=== PATIENT | female | born 1950 | race Caucasian/White ===

== ENCOUNTER 2019-11-02 12:18 | Day surgery (SDC) | payer MEDICARE ==
[~2019-11-02 12:18] MED LIST: ACET-2615 PO; APIX5TAB3 PO; ASCO-134 PO; ASPI-1265 PO; BENZ-49 PO; CARV-50 PO; CETI10TA15 PO; CYAN-51 PO; DIPH-423 PO; FOLI0.4T2 PO; FURO-149 PO; GLIM2TAB6 PO; LEVO25TA50 PO; MULT-785 PO; NITR0.4T SL; PANT-47 PO; POTA10CA44 PO; SIMV-42 PO; TRAM50TA2 PO; UBID1CAP54 PO
[2019-11-02] MEDS ORDERED: LIDOcaine 2% 5ml jelly ONE (13:12)
[2019-11-02] MEDS ORDERED: nystatin/triamcinolone cream 15gm TP ONE (13:51)
== END 2019-11-02 14:02 | disposition home or self-care (01) ==
LOC: WOUND CARE 12:18
PROVIDERS: ATTEND Nurse Practitioner
DX: T81.89XA Other complications of procedures, not elsewhere classified, initial encounter (principal); T88.9XXD Complication of surgical and medical care, unspecified, subsequent encounter; E11.22 Type 2 diabetes mellitus with diabetic chronic kidney disease; I12.9 Hypertensive chronic kidney disease with stage 1 through stage 4 chronic kidney disease, or unspecified chronic kidney disease; N18.9 Chronic kidney disease, unspecified; I50.9 Heart failure, unspecified; E66.01 Morbid (severe) obesity due to excess calories; L40.8 Other psoriasis; Z79.899 Other long term (current) drug therapy; Z90.710 Acquired absence of both cervix and uterus; Z68.36 Body mass index [BMI] 36.0-36.9, adult; Y83.8 Other surgical procedures as the cause of abnormal reaction of the patient, or of later complication, without mention of misadventure at the time of the procedure; Y92.238 Other place in hospital as the place of occurrence of the external cause
CPT/HCPCS: 97597; J7999

== ENCOUNTER → 2019-11-09 | Day surgery (SDC) | payer MEDICARE ==
[~2019-11-09] MED LIST changes: +LIDOcaine 2% 5ml jelly ONE
== END | disposition home or self-care (01) ==
LOC: WOUND CARE 12:47
PROVIDERS: ATTEND Nurse Practitioner
DX: T81.89XD Other complications of procedures, not elsewhere classified, subsequent encounter (principal); E11.22 Type 2 diabetes mellitus with diabetic chronic kidney disease; I12.9 Hypertensive chronic kidney disease with stage 1 through stage 4 chronic kidney disease, or unspecified chronic kidney disease; N18.9 Chronic kidney disease, unspecified; J44.9 Chronic obstructive pulmonary disease, unspecified; M19.90 Unspecified osteoarthritis, unspecified site; E78.5 Hyperlipidemia, unspecified; E07.9 Disorder of thyroid, unspecified; I50.9 Heart failure, unspecified; E66.01 Morbid (severe) obesity due to excess calories; L40.8 Other psoriasis; Z79.899 Other long term (current) drug therapy; Z90.710 Acquired absence of both cervix and uterus; Z68.36 Body mass index [BMI] 36.0-36.9, adult; Y83.8 Other surgical procedures as the cause of abnormal reaction of the patient, or of later complication, without mention of misadventure at the time of the procedure
CPT/HCPCS: 36416; 82948; 97597

== ENCOUNTER 2019-11-16 13:00 | Day surgery (SDC) | payer MEDICARE ==
[~2019-11-16 13:00] MED LIST changes: -LIDOcaine 2% 5ml jelly ONE
[2019-11-16] MEDS ORDERED: LIDOcaine 2% 5ml jelly ONE (13:51)
[2019-11-16] MEDS ORDERED: nystatin 15 GM powder TP ONE (14:27)
== END 2019-11-16 14:36 | disposition home or self-care (01) ==
LOC: WOUND CARE 13:00
PROVIDERS: ATTEND Nurse Practitioner
DX: T81.89XD Other complications of procedures, not elsewhere classified, subsequent encounter (principal); E11.622 Type 2 diabetes mellitus with other skin ulcer; L98.492 Non-pressure chronic ulcer of skin of other sites with fat layer exposed; E11.22 Type 2 diabetes mellitus with diabetic chronic kidney disease; I13.0 Hypertensive heart and chronic kidney disease with heart failure and stage 1 through stage 4 chronic kidney disease, or unspecified chronic kidney disease; N18.9 Chronic kidney disease, unspecified; I50.9 Heart failure, unspecified; E11.65 Type 2 diabetes mellitus with hyperglycemia; E66.01 Morbid (severe) obesity due to excess calories; L40.8 Other psoriasis; J44.9 Chronic obstructive pulmonary disease, unspecified; E07.9 Disorder of thyroid, unspecified; E78.5 Hyperlipidemia, unspecified; M19.90 Unspecified osteoarthritis, unspecified site; Z79.899 Other long term (current) drug therapy; Z90.710 Acquired absence of both cervix and uterus; Z68.36 Body mass index [BMI] 36.0-36.9, adult; Y83.8 Other surgical procedures as the cause of abnormal reaction of the patient, or of later complication, without mention of misadventure at the time of the procedure
CPT/HCPCS: 36416; 82948; 97597

== ENCOUNTER 2019-11-23 13:46 | Day surgery (SDC) | payer MEDICARE ==
[2019-11-23] MEDS ORDERED: LIDOcaine 2% 5ml jelly ONE (14:49)
== END 2019-11-23 15:36 | disposition home or self-care (01) ==
LOC: WOUND CARE 13:46
PROVIDERS: ATTEND Registered Nurse General Practice
DX: T81.89XD Other complications of procedures, not elsewhere classified, subsequent encounter (principal); E11.622 Type 2 diabetes mellitus with other skin ulcer; L98.492 Non-pressure chronic ulcer of skin of other sites with fat layer exposed; E11.22 Type 2 diabetes mellitus with diabetic chronic kidney disease; I13.0 Hypertensive heart and chronic kidney disease with heart failure and stage 1 through stage 4 chronic kidney disease, or unspecified chronic kidney disease; N18.9 Chronic kidney disease, unspecified; I50.9 Heart failure, unspecified; E11.65 Type 2 diabetes mellitus with hyperglycemia; E66.01 Morbid (severe) obesity due to excess calories; L40.8 Other psoriasis; J44.9 Chronic obstructive pulmonary disease, unspecified; E07.9 Disorder of thyroid, unspecified; E78.5 Hyperlipidemia, unspecified; M19.90 Unspecified osteoarthritis, unspecified site; Z79.899 Other long term (current) drug therapy; Z90.710 Acquired absence of both cervix and uterus; Z68.36 Body mass index [BMI] 36.0-36.9, adult; Z85.828 Personal history of other malignant neoplasm of skin; Z86.711 Personal history of pulmonary embolism; Y83.8 Other surgical procedures as the cause of abnormal reaction of the patient, or of later complication, without mention of misadventure at the time of the procedure
CPT/HCPCS: 97597

== ENCOUNTER 2019-12-01 09:00 | Day surgery (SDC) | payer MEDICARE ==
[2019-12-01] MEDS ORDERED: LIDOcaine 2% 5ml jelly ONE (09:22)
[2019-12-01] MEDS ORDERED: nystatin/triamcinolone cream 15gm TP ONE (09:41)
== END 2019-12-01 09:50 | disposition home or self-care (01) ==
LOC: WOUND CARE 09:00
PROVIDERS: ATTEND Nurse Practitioner
DX: T81.89XD Other complications of procedures, not elsewhere classified, subsequent encounter (principal); E11.622 Type 2 diabetes mellitus with other skin ulcer; L98.492 Non-pressure chronic ulcer of skin of other sites with fat layer exposed; E11.22 Type 2 diabetes mellitus with diabetic chronic kidney disease; I13.0 Hypertensive heart and chronic kidney disease with heart failure and stage 1 through stage 4 chronic kidney disease, or unspecified chronic kidney disease; N18.9 Chronic kidney disease, unspecified; I50.9 Heart failure, unspecified; E11.65 Type 2 diabetes mellitus with hyperglycemia; E66.01 Morbid (severe) obesity due to excess calories; L40.8 Other psoriasis; J44.9 Chronic obstructive pulmonary disease, unspecified; E07.9 Disorder of thyroid, unspecified; E78.5 Hyperlipidemia, unspecified; M19.90 Unspecified osteoarthritis, unspecified site; Z79.899 Other long term (current) drug therapy; Z90.710 Acquired absence of both cervix and uterus; Z68.36 Body mass index [BMI] 36.0-36.9, adult; Z85.828 Personal history of other malignant neoplasm of skin; Z86.711 Personal history of pulmonary embolism; Y83.8 Other surgical procedures as the cause of abnormal reaction of the patient, or of later complication, without mention of misadventure at the time of the procedure
CPT/HCPCS: 82948; 97597; 97598; G0463; J7999

== ENCOUNTER 2019-12-08 10:13 | Outpatient (CLI) | payer MEDICARE ==
[2019-12-08] MEDS ORDERED: LIDOcaine 2% 5ml jelly ONE (10:29)
== END 2019-12-08 10:30 | disposition home or self-care (01) ==
LOC: WOUND CARE 10:13
PROVIDERS: ATTEND Nurse Practitioner
DX: T81.89XD Other complications of procedures, not elsewhere classified, subsequent encounter (principal); E11.622 Type 2 diabetes mellitus with other skin ulcer; L98.492 Non-pressure chronic ulcer of skin of other sites with fat layer exposed; E11.22 Type 2 diabetes mellitus with diabetic chronic kidney disease; I13.0 Hypertensive heart and chronic kidney disease with heart failure and stage 1 through stage 4 chronic kidney disease, or unspecified chronic kidney disease; N18.9 Chronic kidney disease, unspecified; I50.9 Heart failure, unspecified; E11.65 Type 2 diabetes mellitus with hyperglycemia; E66.01 Morbid (severe) obesity due to excess calories; L40.8 Other psoriasis; J44.9 Chronic obstructive pulmonary disease, unspecified; E07.9 Disorder of thyroid, unspecified; E78.5 Hyperlipidemia, unspecified; M19.90 Unspecified osteoarthritis, unspecified site; Z79.899 Other long term (current) drug therapy; Z90.710 Acquired absence of both cervix and uterus; Z68.36 Body mass index [BMI] 36.0-36.9, adult; Z85.828 Personal history of other malignant neoplasm of skin; Z86.711 Personal history of pulmonary embolism; Y83.8 Other surgical procedures as the cause of abnormal reaction of the patient, or of later complication, without mention of misadventure at the time of the procedure
CPT/HCPCS: 36416; 82948; 97597

== ENCOUNTER 2019-12-15 10:07 | Outpatient (CLI) | payer MEDICARE ==
[2019-12-15] MEDS ORDERED: LIDOcaine 2% 5ml jelly ONE (10:22)
[2019-12-15] MEDS ORDERED: hydrocortisone 1% cream 28gm TP ONE (10:39)
== END 2019-12-15 23:59 | disposition home or self-care (01) ==
LOC: WOUND CARE 10:07
PROVIDERS: ATTEND Nurse Practitioner
DX: T81.89XD Other complications of procedures, not elsewhere classified, subsequent encounter (principal); E11.622 Type 2 diabetes mellitus with other skin ulcer; L98.492 Non-pressure chronic ulcer of skin of other sites with fat layer exposed; E11.22 Type 2 diabetes mellitus with diabetic chronic kidney disease; I13.0 Hypertensive heart and chronic kidney disease with heart failure and stage 1 through stage 4 chronic kidney disease, or unspecified chronic kidney disease; N18.9 Chronic kidney disease, unspecified; I50.9 Heart failure, unspecified; E11.65 Type 2 diabetes mellitus with hyperglycemia; E66.01 Morbid (severe) obesity due to excess calories; L40.8 Other psoriasis; J44.9 Chronic obstructive pulmonary disease, unspecified; E07.9 Disorder of thyroid, unspecified; E78.5 Hyperlipidemia, unspecified; M19.90 Unspecified osteoarthritis, unspecified site; Z79.899 Other long term (current) drug therapy; Z90.710 Acquired absence of both cervix and uterus; Z68.36 Body mass index [BMI] 36.0-36.9, adult; Z85.828 Personal history of other malignant neoplasm of skin; Z86.711 Personal history of pulmonary embolism; Y83.8 Other surgical procedures as the cause of abnormal reaction of the patient, or of later complication, without mention of misadventure at the time of the procedure
CPT/HCPCS: 36416; 82948; 97597

== ENCOUNTER 2019-12-23 08:00 | Outpatient (CLI) | payer MEDICARE ==
[2019-12-23] MEDS ORDERED: hydrocortisone 1% cream 28gm TP ONE (08:49)
== END 2019-12-23 23:59 | disposition home or self-care (01) ==
LOC: WOUND CARE 08:00
PROVIDERS: ATTEND Nurse Practitioner
DX: T81.89XD Other complications of procedures, not elsewhere classified, subsequent encounter (principal); E11.622 Type 2 diabetes mellitus with other skin ulcer; L98.492 Non-pressure chronic ulcer of skin of other sites with fat layer exposed; E11.22 Type 2 diabetes mellitus with diabetic chronic kidney disease; I13.0 Hypertensive heart and chronic kidney disease with heart failure and stage 1 through stage 4 chronic kidney disease, or unspecified chronic kidney disease; N18.9 Chronic kidney disease, unspecified; I50.9 Heart failure, unspecified; E11.65 Type 2 diabetes mellitus with hyperglycemia; E66.01 Morbid (severe) obesity due to excess calories; L40.8 Other psoriasis; J44.9 Chronic obstructive pulmonary disease, unspecified; E07.9 Disorder of thyroid, unspecified; E78.5 Hyperlipidemia, unspecified; M19.90 Unspecified osteoarthritis, unspecified site; Z79.899 Other long term (current) drug therapy; Z90.710 Acquired absence of both cervix and uterus; Z68.36 Body mass index [BMI] 36.0-36.9, adult; Z85.828 Personal history of other malignant neoplasm of skin; Z86.711 Personal history of pulmonary embolism; Y83.8 Other surgical procedures as the cause of abnormal reaction of the patient, or of later complication, without mention of misadventure at the time of the procedure
CPT/HCPCS: 36416; 82948; 97597

== ENCOUNTER 2021-01-22 08:55 | Inpatient (IN) | payer MEDICARE ==
[~2021-01-22] VITALS: Ht 165.1 cm; Wt 104.5 kg
[~2021-01-22 08:55] MED LIST changes: -FOLI0.4T2 PO; +FOLI0.4T6 PO
[2021-01-22] MEDS ORDERED: acetaminophen 325mg tablet PO STA (09:07)
[2021-01-22] MEDS ORDERED: fentaNYL/PF 50MCG/1 ML 2ML syringe IV ONE (09:10)
[2021-01-22] MEDS ORDERED: normal saline 1000ML IV soln IV ONE (09:10)
[2021-01-22] MEDS ORDERED: piperacillin/tazo 3.375gm/50ml 50 ML IV ONE (09:10)
[2021-01-22] MEDS ORDERED: vancomycin/NS 1 GM ADD-VANTAGE 250 ML IV ONE (09:10)
[2021-01-22] MEDS ORDERED: metoclopramide 5 mg/ml inj IV ONE (09:10)
[2021-01-22 09:36] LABS: BASOPHILS # (AUTO) 0.1 X10'3 (0-0.2); BASOPHILS % (AUTO) 0.6 % (0-1); EOSINOPHILS % (AUTO) 0.2 % (0-6); HEMATOCRIT 33.7 % (35.0-45.0); HEMOGLOBIN 10.6 g/dl (12.0-16.0); LYMPHOCYTES # (AUTO) 0.7 X10'3 (1.1-4.8); LYMPHOCYTES % (AUTO) 5.9 % (21-51); MEAN CORPUSCULAR HEMOGLOBIN 26.5 PG (27.0-31.0); MEAN CORPUSCULAR HGB CONC 31.4 g/dL (33.0-36.5); MEAN CORPUSCULAR VOLUME 84.5 FL (78-98); MEAN PLATELET VOLUME 8.7 FL (7.4-10.4); MONOCYTES # (AUTO) 0.4 X10'3 (0-0.9); MONOCYTES % (AUTO) 3.6 % (2-12); NEUTROPHILS # (AUTO) 10.2 X10'3 (1.8-7.7); NEUTROPHILS % (AUTO) 89.7 % (42-75); PLATELET COUNT 516 X10'3 (140-440); RED BLOOD COUNT 3.98 X10'6 (4.20-5.60); RED CELL DISTRIBUTION WIDTH 18.1 % (11.5-14.5); WHITE BLOOD COUNT 11.4 X10'3 (4.5-11.0)
--- NOTE | 2021-01-22 09:53 | NUR ---
ATTEMPT EKG, PT AT CT. WILL ATTEMPT AGAIN.
[2021-01-22 10:10] LABS: ALANINE AMINOTRANSFERASE 13 U/L (12-78); ALBUMIN 2.2 G/DL (3.4-5.0); ALBUMIN/GLOBULIN RATIO 0.4 (1.1-1.5); ALKALINE PHOSPHATASE 94 IU/L (46-116); ASPARTATE AMINO TRANSFERASE 14 U/L (10-37); BLOOD UREA NITROGEN 22 MG/DL (7-18); BUN/CREATININE RATIO 14.1 (6.6-38.0); CALCIUM 8.3 MG/DL (8.5-10.1); CREATININE 1.56 MG/DL (0.40-0.90); GLUCOSE 232 MG/DL (70-104); TOTAL CARBON DIOXIDE 23.1 MMOL/L (24-32); TOTAL PROTEIN 7.4 G/DL (6.4-8.2); eGFR 33 ML/MIN
[2021-01-22 10:14] LABS: ANION GAP 10 (8-16); CHLORIDE 101 MMOL/L (99-107); POTASSIUM 4.3 MMOL/L (3.5-5.1); SODIUM 134 MMOL/L (135-145)
[2021-01-22 11:07] LABS: C-REACTIVE PROTEIN 12.13 MG/DL (0.0-0.5)
[2021-01-22] MEDS ORDERED: magnesium hydroxide 30ml (MOM) UD suspension PO PRN (12:25)
[2021-01-22] MEDS ORDERED: ondansetron/PF 4mg/2ml inj IV PRN (12:25)
[2021-01-22] MEDS ORDERED: acetaminophen 325mg tablet PO PRN (12:25)
[2021-01-22] MEDS ORDERED: mag hydrox/Alum hydrox/simeth 30ml oral suspension PO PRN (12:25)
[2021-01-22] MEDS ORDERED: normal saline 1000ml 1,000 ML IV SCH (12:25)
[2021-01-22] MEDS ORDERED: LEVO50TA8 PO (14:23)
[2021-01-22] MEDS ORDERED: LACT1CAP65 PO (14:23)
[2021-01-22] MEDS ORDERED: CHOL100025 PO (14:23)
[2021-01-22] MEDS ORDERED: LISI5TAB22 PO (14:23)
[2021-01-22] MEDS ORDERED: IXEK80AU2 SQ (14:23)
[2021-01-22] MEDS ORDERED: SIMV-45 PO (14:23)
[2021-01-22] MEDS ORDERED: ASPI81TA48 PO (14:23)
[2021-01-22 18:40] LABS: HEMOGLOBIN A1C 8.2 % (4.5-6.2)
[2021-01-22] MEDS ORDERED: nitroGLYCERIN 0.4mg SUBLingual tab SL PRN (18:45)
[2021-01-22] MEDS ORDERED: potassium chloride 10mEq ER tablet PO PRN (18:45)
[2021-01-22] MEDS ORDERED: furosemide 40mg tablet PO PRN (18:45)
[2021-01-22] MEDS ORDERED: IXEKIZUMAB 80 MG SQ SCH (18:45)
[2021-01-22] MEDS: docusate sod 100mg capsule PO SCH (20:00)
[2021-01-22] MEDS ORDERED: dextrose ORAL solution 15 GM/59 ML bottle PO PRN ×2 (20:35)
[2021-01-22] MEDS ORDERED: dextrose 50%-water 50ml dispensing syringe IV PRN ×2 (20:35)
[2021-01-22] MEDS ORDERED: glucagon, human recombinant 1mg kit SUBCUT PRN (20:35)
[2021-01-22] MEDS ORDERED: MESSAGE TO PHARMACY PO ONE (20:35)
[2021-01-22] MEDS: insulin glargine (Lantus) pen - multi-dose SQ SCH (21:00)
[2021-01-22 21:30] VITALS: BP 125/56
[2021-01-22] MEDS: atorvastatin 20mg tablet PO SCH (22:05)
[2021-01-22] MEDS: carVEDilol 12.5mg tablet PO SCH (22:11)
[2021-01-22] MEDS: lactobacillus rhamnosus 10,000 MMU CELLS/CAPSULE PO SCH (22:11)
[2021-01-22] MEDS: traMADol 50MG tablet PO PRN (22:18)
[2021-01-22] MEDS: dextrose 5%-water 1,000 ML IV SCH (23:02)
--- NOTE | 2021-01-23 06:30 | NUR ---
Problems reprioritized. Patient report given, questions answered & plan of care reviewed with Josselyn. Addendum: 01/23/21 at 0654 by Scooter Whipple RN Amended: Links added.
[2021-01-23 06:37] LABS: BASOPHILS % (AUTO) 0.3 % (0-1); EOSINOPHILS # (AUTO) 0.3 X10'3 (0-0.9); EOSINOPHILS % (AUTO) 3.9 % (0-6); HEMATOCRIT 25.6 % (35.0-45.0); HEMOGLOBIN 8.3 g/dl (12.0-16.0); LYMPHOCYTES # (AUTO) 0.5 X10'3 (1.1-4.8); LYMPHOCYTES % (AUTO) 6.7 % (21-51); MEAN CORPUSCULAR HEMOGLOBIN 27.5 PG (27.0-31.0); MEAN CORPUSCULAR HGB CONC 32.4 g/dL (33.0-36.5); MEAN CORPUSCULAR VOLUME 84.9 FL (78-98); MEAN PLATELET VOLUME 8.9 FL (7.4-10.4); MONOCYTES # (AUTO) 0.4 X10'3 (0-0.9); MONOCYTES % (AUTO) 5.8 % (2-12); NEUTROPHILS # (AUTO) 6.1 X10'3 (1.8-7.7); NEUTROPHILS % (AUTO) 83.3 % (42-75); PLATELET COUNT 367 X10'3 (140-440); RED BLOOD COUNT 3.01 X10'6 (4.20-5.60); RED CELL DISTRIBUTION WIDTH 18.5 % (11.5-14.5); WHITE BLOOD COUNT 7.3 X10'3 (4.5-11.0)
[2021-01-23 06:41] LABS: ALBUMIN 1.8 G/DL (3.4-5.0); ANION GAP 9 (8-16); BLOOD UREA NITROGEN 23 MG/DL (7-18); BUN/CREATININE RATIO 15.1 (6.6-38.0); CALCIUM 7.7 MG/DL (8.5-10.1); CHLORIDE 105 MMOL/L (99-107); CREATININE 1.52 MG/DL (0.40-0.90); GLUCOSE 143 MG/DL (70-104); POTASSIUM 3.9 MMOL/L (3.5-5.1); SODIUM 137 MMOL/L (135-145); TOTAL CARBON DIOXIDE 22.8 MMOL/L (24-32); eGFR 34 ML/MIN
--- NOTE | 2021-01-23 07:01 | NUR ---
Patient in room [facility] 354. I have received report from YAKOV Rodriguez and had the opportunity to ask questions and assume patient care.
[2021-01-23 07:24] VITALS: BP 120/51
[2021-01-23] MEDS: docusate sod 100mg capsule PO SCH ×2 (08:00→20:00)
[2021-01-23] MEDS: cholecalciferol (vitamin D3) 1,000 unit (25mcg) tablet PO SCH (08:18)
[2021-01-23] MEDS: ascorbic acid 500mg tablet PO SCH (08:18)
[2021-01-23] MEDS: lactobacillus rhamnosus 10,000 MMU CELLS/CAPSULE PO SCH ×2 (08:18→22:12)
[2021-01-23] MEDS: multivitamins, therapeutics tablet PO SCH (08:19)
[2021-01-23] MEDS: cyanocobalamin 500mcg tablet PO SCH (08:19)
[2021-01-23] MEDS: lisinopril 5mg tablet PO SCH (08:20)
[2021-01-23] MEDS: carVEDilol 12.5mg tablet PO SCH ×2 (08:20→17:52)
[2021-01-23] MEDS: folic acid 0.4mg tablet PO SCH (08:20)
[2021-01-23] MEDS: pantoprazole 40mg Tablet.DR PO SCH (08:20)
[2021-01-23] MEDS: levoTHYROXINE 25mcg tablet PO SCH (08:26)
[2021-01-23 11:00] VITALS: BP 134/55
--- NOTE | 2021-01-23 11:30 | NUR ---
Diabetes consult: Noted A1C 8.2 up from 6.3 in April 2019. Pt states she has been managing diabetes most of her life. Provided pt w/ written and verbal DM education w/ RD contact info. Pt receptive of information. Addendum: 01/23/21 at [address] Amended: Links added.
[2021-01-23] MEDS: VANCOmycin 1250MG/NS 250ml Bag 250 ML IV SCH (11:56)
[2021-01-23] MEDS: dextrose 5%-water 1,000 ML IV SCH (13:13)
[2021-01-23 18:00] VITALS: BP 133/48
--- NOTE | 2021-01-23 18:32 | NUR ---
Problems reprioritized. Patient report given, questions answered & plan of care reviewed with JEANINE Champagne.
[2021-01-23] MEDS: traMADol 50MG tablet PO PRN (19:59)
[2021-01-23] MEDS: insulin glargine (Lantus) pen - multi-dose SQ SCH (21:00)
[2021-01-23] MEDS: atorvastatin 20mg tablet PO SCH (22:12)
[2021-01-24] VITALS (21 sets, daily range): BP systolic 121–155; BP diastolic 45–73
[2021-01-24] MEDS: dextrose 5%-water 1,000 ML IV SCH (03:31)
[2021-01-24 06:07] LABS: BASOPHILS % (AUTO) 0.4 % (0-1); EOSINOPHILS # (AUTO) 0.2 X10'3 (0-0.9); EOSINOPHILS % (AUTO) 3.4 % (0-6); HEMATOCRIT 25.6 % (35.0-45.0); HEMOGLOBIN 8.2 g/dl (12.0-16.0); LYMPHOCYTES # (AUTO) 0.5 X10'3 (1.1-4.8); MEAN CORPUSCULAR HEMOGLOBIN 26.9 PG (27.0-31.0); MEAN CORPUSCULAR VOLUME 84.1 FL (78-98); MEAN PLATELET VOLUME 8.6 FL (7.4-10.4); MONOCYTES # (AUTO) 0.4 X10'3 (0-0.9); MONOCYTES % (AUTO) 7.7 % (2-12); NEUTROPHILS # (AUTO) 4.5 X10'3 (1.8-7.7); NEUTROPHILS % (AUTO) 79.5 % (42-75); PLATELET COUNT 399 X10'3 (140-440); RED BLOOD COUNT 3.04 X10'6 (4.20-5.60); RED CELL DISTRIBUTION WIDTH 18.3 % (11.5-14.5); WHITE BLOOD COUNT 5.6 X10'3 (4.5-11.0)
--- NOTE | 2021-01-24 06:11 | NUR ---
Patient in room [facility] 354. I have received report from Mahi NAGY and had the opportunity to ask questions and assume patient care.
[2021-01-24 06:21] LABS: ALBUMIN 1.9 G/DL (3.4-5.0); ANION GAP 9 (8-16); BLOOD UREA NITROGEN 21 MG/DL (7-18); BUN/CREATININE RATIO 15.4 (6.6-38.0); CALCIUM 8.6 MG/DL (8.5-10.1); CHLORIDE 107 MMOL/L (99-107); CREATININE 1.36 MG/DL (0.40-0.90); GLUCOSE 160 MG/DL (70-104); POTASSIUM 4.6 MMOL/L (3.5-5.1); SODIUM 140 MMOL/L (135-145); TOTAL CARBON DIOXIDE 23.9 MMOL/L (24-32); eGFR 39 ML/MIN
--- NOTE | 2021-01-24 07:37 | NUR ---
per OR charge nurse hold all meds for surgery, they will come slate picker pt within the hr.
[2021-01-24] MEDS: lactobacillus rhamnosus 10,000 MMU CELLS/CAPSULE PO SCH ×2 (07:41→21:28)
[2021-01-24] MEDS: docusate sod 100mg capsule PO SCH ×2 (07:41→20:00)
[2021-01-24] MEDS: folic acid 0.4mg tablet PO SCH (07:42)
[2021-01-24] MEDS: cholecalciferol (vitamin D3) 1,000 unit (25mcg) tablet PO SCH (07:42)
[2021-01-24] MEDS: ascorbic acid 500mg tablet PO SCH (07:42)
[2021-01-24] MEDS: multivitamins, therapeutics tablet PO SCH (07:42)
[2021-01-24] MEDS: pantoprazole 40mg Tablet.DR PO SCH (07:42)
[2021-01-24] MEDS: lisinopril 5mg tablet PO SCH (07:42)
[2021-01-24] MEDS: cyanocobalamin 500mcg tablet PO SCH (07:42)
[2021-01-24] MEDS: carVEDilol 12.5mg tablet PO SCH ×2 (07:47→17:02)
[2021-01-24] MEDS: levoTHYROXINE 25mcg tablet PO SCH (07:48)
[2021-01-24] MEDS ORDERED: ondansetron/PF 4mg/2ml inj IV PRN (07:50)
[2021-01-24] MEDS ORDERED: meperidine/PF 25mg/ml syringe IV PRN ×2 (07:50)
[2021-01-24] MEDS ORDERED: ringers solution, lacted 1,000 ML IV SCH (07:50)
[2021-01-24] MEDS ORDERED: proCHLORperazine 10 MG/2 ml inj IV PRN (07:50)
[2021-01-24] MEDS: VANCOmycin 1250MG/NS 250ml Bag 250 ML IV SCH (08:25)
[2021-01-24] MEDS ORDERED: neostigmine methylsulfate 1 MG/ML 10ml vial ONE (09:28)
[2021-01-24] MEDS ORDERED: sevoflurane 250ml liquid IH ONE (09:28)
[2021-01-24] MEDS ORDERED: glycopyrrolate 0.2mg/ml inj ONE (09:28)
[2021-01-24] MEDS ORDERED: LIDOcaine 2% (20mg/ml) 5ml vial ONE (09:28)
[2021-01-24] MEDS ORDERED: dexamethasone sod phosphate 10mg/ml inj ONE (09:28)
[2021-01-24] MEDS ORDERED: fentaNYL/PF 50MCG/1 ML 2ML syringe ONE (09:32)
[2021-01-24] MEDS ORDERED: midazolam 1 mg/ML 2ml injection ONE (09:33)
[2021-01-24] MEDS ORDERED: propofol inj 20 ML IV ONE (09:34)
[2021-01-24] MEDS ORDERED: rocuronium 10mg/ml inj IV ONE (10:07)
[2021-01-24] MEDS ORDERED: ondansetron/PF 4mg/2ml inj ONE (10:07)
[2021-01-24 10:13] LABS: PARTIAL THROMBOPLASTIN TIME 26 SECONDS (22-32)
--- NOTE | 2021-01-24 10:23 | NUR ---
Received from OR via bed, accompanied by Anesthesiologist Dr. Cox and report given by Anesthesiolgist and OR nurse. PT ARRIVED DROWSY ON 10 L OF 02 VIA MASK. PT HAS 20 G IV TO R AC RUNNING LR AND TYLENOL. VSS. PT STATES 8/10 PAIN IN ABD. WILL TREAT PER EMAR. DENIES NAUSEA. BELL. WOUND VAC ON ABD WITH SOME BLOODY DRAINAGE. ABD IS SOFT, NON DISTENDED BUT BRUISED FROM PREVIOUS INJURY. WILL CONTINUE TO MONITOR. Addendum: 01/24/21 at 1054 by Kirsten Doan RN Amended: Links added.
[2021-01-24] MEDS: meperidine/PF 25mg/ml syringe IV PRN ×2 (10:35→10:59)
--- NOTE | 2021-01-24 11:22 | NUR ---
Patient in room [facility] 354. I have received report from Kirsten granado and had the opportunity to ask questions and assume patient care.
--- NOTE | 2021-01-24 11:33 | NUR ---
Report called to receiving nurse MICHELLE. Transferred via BED WITH NECKLACE, [facility]. Special Issues communicated to receiving nurse. PT VSS. NEURO STATUS BACK TO BASELINE. PT PAIN IS CONTROLLED AND DENIES NAUSEA. WOUND VAC RUNNING AT 125. TYLENOL D/C'D AND LR RUNNING AT 100ML/HR. PT ON 2 L 02 VIA NASAL CANNULA. NURSE NOTIFIED OF PT ARRIVAL. BED LOCKED IN LOW POSITION WITH 2 RAILS UP. CALL LIGHT IN REACH. Addendum: 01/24/21 at 1155 by Kirsten Doan RN Amended: Links added.
--- NOTE | 2021-01-24 12:13 | NUR ---
attempted to give pt MOM since LBM was 01/21. Pt asked to try prune juice first before MOM
[2021-01-24] MEDS: traMADol 50MG tablet PO PRN ×2 (15:02→21:29)
--- NOTE | 2021-01-24 16:00 | NUR ---
Page Sent PAGER ID: [phone] MESSAGE: 354 C, Asher, the pt is now eating and drinking do you want me to DC the fluids? also since pt was on D5 her BS were higher but not met yet, if high at dinner can we not replace and what to see what she is tomorrow? [id number] chucho
--- NOTE | 2021-01-24 16:45 | NUR ---
Page Sent PAGER ID: [phone] MESSAGE: 354 C Asher, can I order some nystatin powder pt has red area in groin and moist. Also let me know bout the pts fluids please. [id number] chucho
[2021-01-24] MEDS ORDERED: nystatin 15 GM powder TP SCH (17:00)
--- NOTE | 2021-01-24 17:35 | NUR ---
Page Sent PAGER ID: [phone] MESSAGE: Richie c Asher, do you want me to restart pts accu checks. she just now met with a BS of 254, but she ate a late lunch and was on D5W all day. Please call me to let me know if we can just replace insulin tomorrow? if met [phone] chucho
--- NOTE | 2021-01-24 18:11 | NUR ---
per dr hughes, do not give lantus but cover with humalog, pt is a level 2. i discussed this with night nurse kehinde.
--- NOTE | 2021-01-24 18:18 | NUR ---
Problems reprioritized. Patient report given, questions answered & plan of care reviewed with Mahi granado.
[2021-01-24] MEDS: insulin Lispro (HumaLOG) vial - multi-dose SQ SCH ×2 (18:37→21:45)
[2021-01-24] MEDS: insulin glargine (Lantus) pen - multi-dose SQ SCH (21:00)
[2021-01-24] MEDS: atorvastatin 20mg tablet PO SCH (21:28)
[2021-01-25] VITALS: BP 129/55
[2021-01-25] MEDS: traMADol 50MG tablet PO PRN ×3 (06:07→14:02)
[2021-01-25 07:07] LABS: ANION GAP 7 (8-16); BLOOD UREA NITROGEN 25 MG/DL (7-18); CALCIUM 8.7 MG/DL (8.5-10.1); CHLORIDE 105 MMOL/L (99-107); CREATININE 1.39 MG/DL (0.40-0.90); GLUCOSE 198 MG/DL (70-104); SODIUM 137 MMOL/L (135-145); TOTAL CARBON DIOXIDE 24.7 MMOL/L (24-32); eGFR 38 ML/MIN
[2021-01-25 07:26] LABS: BASOPHILS % (AUTO) 0.1 % (0-1); EOSINOPHILS % (AUTO) 0 % (0-6); HEMATOCRIT 26.8 % (35.0-45.0); HEMOGLOBIN 8.7 g/dl (12.0-16.0); LYMPHOCYTES # (AUTO) 0.4 X10'3 (1.1-4.8); MEAN CORPUSCULAR HEMOGLOBIN 27.3 PG (27.0-31.0); MEAN CORPUSCULAR HGB CONC 32.6 g/dL (33.0-36.5); MEAN CORPUSCULAR VOLUME 83.5 FL (78-98); MEAN PLATELET VOLUME 8.9 FL (7.4-10.4); MONOCYTES # (AUTO) 0.4 X10'3 (0-0.9); MONOCYTES % (AUTO) 5.7 % (2-12); NEUTROPHILS # (AUTO) 6.3 X10'3 (1.8-7.7); NEUTROPHILS % (AUTO) 88.2 % (42-75); PLATELET COUNT 435 X10'3 (140-440); RED CELL DISTRIBUTION WIDTH 18.1 % (11.5-14.5); WHITE BLOOD COUNT 7.2 X10'3 (4.5-11.0)
[2021-01-25 07:40] VITALS: BP 173/80
[2021-01-25] MEDS: docusate sod 100mg capsule PO SCH ×2 (08:00→20:16)
[2021-01-25] MEDS: lactobacillus rhamnosus 10,000 MMU CELLS/CAPSULE PO SCH ×2 (08:11→20:16)
[2021-01-25] MEDS: carVEDilol 12.5mg tablet PO SCH ×2 (08:11→18:14)
[2021-01-25] MEDS: cyanocobalamin 500mcg tablet PO SCH (08:11)
[2021-01-25] MEDS: cholecalciferol (vitamin D3) 1,000 unit (25mcg) tablet PO SCH (08:11)
[2021-01-25] MEDS: ascorbic acid 500mg tablet PO SCH (08:11)
[2021-01-25] MEDS: levoTHYROXINE 25mcg tablet PO SCH (08:11)
[2021-01-25] MEDS: lisinopril 5mg tablet PO SCH (08:12)
[2021-01-25] MEDS: folic acid 0.4mg tablet PO SCH (08:13)
[2021-01-25] MEDS: multivitamins, therapeutics tablet PO SCH (08:13)
[2021-01-25] MEDS ORDERED: VANCOMYCIN LEVEL IV ONE (08:30)
[2021-01-25] MEDS: VANCOmycin 1250MG/NS 250ml Bag 250 ML IV SCH (09:00)
[2021-01-25] MEDS: insulin Lispro (HumaLOG) vial - multi-dose SQ SCH ×2 (10:20→13:55)
[2021-01-25] MEDS: pantoprazole 40mg Tablet.DR PO SCH (10:23)
--- NOTE | 2021-01-25 10:37 | NUR ---
Pharmacy notified regarding critical vanco trough. Requested to non-admin AM dose, new dose will be sent up.
[2021-01-25 11:00] VITALS: BP 130/58
[2021-01-25] MEDS: vancomycin/NS 1 GM ADD-VANTAGE 250 ML IV SCH (12:00)
--- NOTE | 2021-01-25 14:26 | NUR ---
Initial; Pt admitted w/ cellulitis with possible infected hematoma of the anterior abdominal wall per EMR. Pt underwent I&D of abd wall hematoma 01/24. Pt currently on CCHO diet w/ 100% intake of last 3 documented meals meeting needs if current trends continue. LBM 01/22 receiving routine colace. No nutrition intervention implemented at this time, will continue to monitor. Recs: 1. Continue CCHO diet as tolerated 2. Bowel care per rx 3. Scaled wt this admit, subsequent weekly wts Addendum: 01/25/21 at [address] Amended: Links added.
--- NOTE | 2021-01-25 15:11 | NUR ---
LUCA consutl: Addressed in previous RD assessment. Addendum: 01/25/21 at [address] Amended: Links added.
--- NOTE | 2021-01-25 15:35 | NUR ---
WOUND VAC EDUCATION PROVIDED BY WOUND CARE 1. Patient instructed to call the Wound Center or their Home Health Agency immediately if: * They notice a change in the color or amount of the fluid in the canister. * Their wound looks more red than usual or has a foul smell. * The skin around their wound looks reddened or irritated. * The dressing feels loose or appears to be loose. * They experience any increase or changes in their pain. * The alarm will not turn off. 2. Patient instructed that they should not be disconnected from suction for more than 2 hours at a time. * If they are not able to get the suction back on, they need to remove the dressing and take all of the foam out of the wound. * Then moisten sterile gauze with normal saline and place on/in the wound. * Change the dressing once a day until arrangements have been made to replace the wound vac dressing. 3. Patient instructed to turn the wound vac machine OFF and call 911 or go to the ED immediately if their canister fills rapidly with blood. 4. If any of these occur while in the hospital tell a nurse immediately. Addendum: 01/25/21 at 1535 by Channing Ponce RN Amended: Links added.
--- NOTE | 2021-01-25 18:33 | NUR ---
Patient a&ox3. VSS. Pain relieved with tramadol. Room air. Repositioned q2h, skin is intact. Purewick in place, working well. Wound vac dressing dry and intact. Plan of care reviewed with patient. Safety measures maintained: bed in low position, call light placed within reach. Report given to Miriam NAGY.
[2021-01-25 20:00] VITALS: BP 131/57
[2021-01-25] MEDS: atorvastatin 20mg tablet PO SCH (20:16)
[2021-01-25] MEDS: HYDROmorphone/PF 0.2 MG/ML SYRINGE IV PRN (20:24)
[2021-01-25] MEDS: insulin glargine (Lantus) pen - multi-dose SQ SCH (21:00)
[2021-01-26] VITALS: BP 129/55
[2021-01-26] MEDS: HYDROmorphone/PF 0.2 MG/ML SYRINGE IV PRN ×2 (03:43→09:16)
--- NOTE | 2021-01-26 06:03 | NUR ---
Patient report given, questions answered and plan of care reviewed with Yari NAGY .
[2021-01-26 06:18] LABS: BASOPHILS # (AUTO) 0.1 X10'3 (0-0.2); BASOPHILS % (AUTO) 0.9 % (0-1); EOSINOPHILS # (AUTO) 0.2 X10'3 (0-0.9); EOSINOPHILS % (AUTO) 3.1 % (0-6); HEMOGLOBIN 8.8 g/dl (12.0-16.0); LYMPHOCYTES % (AUTO) 13.6 % (21-51); MEAN CORPUSCULAR HEMOGLOBIN 27.2 PG (27.0-31.0); MEAN CORPUSCULAR HGB CONC 32.6 g/dL (33.0-36.5); MEAN CORPUSCULAR VOLUME 83.6 FL (78-98); MEAN PLATELET VOLUME 8.3 FL (7.4-10.4); MONOCYTES # (AUTO) 0.6 X10'3 (0-0.9); MONOCYTES % (AUTO) 8.3 % (2-12); NEUTROPHILS # (AUTO) 5.6 X10'3 (1.8-7.7); NEUTROPHILS % (AUTO) 74.1 % (42-75); PLATELET COUNT 410 X10'3 (140-440); RED BLOOD COUNT 3.23 X10'6 (4.20-5.60); RED CELL DISTRIBUTION WIDTH 18.3 % (11.5-14.5); WHITE BLOOD COUNT 7.5 X10'3 (4.5-11.0)
[2021-01-26 06:21] LABS: ALBUMIN 2.1 G/DL (3.4-5.0); ANION GAP 5 (8-16); BLOOD UREA NITROGEN 32 MG/DL (7-18); BUN/CREATININE RATIO 19.4 (6.6-38.0); CALCIUM 8.9 MG/DL (8.5-10.1); CHLORIDE 106 MMOL/L (99-107); CREATININE 1.65 MG/DL (0.40-0.90); GLUCOSE 129 MG/DL (70-104); POTASSIUM 5.1 MMOL/L (3.5-5.1); SODIUM 138 MMOL/L (135-145); TOTAL CARBON DIOXIDE 27.1 MMOL/L (24-32); eGFR 31 ML/MIN
[2021-01-26] MEDS: ascorbic acid 500mg tablet PO SCH (07:22)
[2021-01-26] MEDS: levoTHYROXINE 25mcg tablet PO SCH (07:22)
[2021-01-26] MEDS: cholecalciferol (vitamin D3) 1,000 unit (25mcg) tablet PO SCH (07:22)
[2021-01-26] MEDS: cyanocobalamin 500mcg tablet PO SCH (07:23)
[2021-01-26] MEDS: multivitamins, therapeutics tablet PO SCH (07:23)
[2021-01-26] MEDS: folic acid 0.4mg tablet PO SCH (07:23)
[2021-01-26] MEDS: lactobacillus rhamnosus 10,000 MMU CELLS/CAPSULE PO SCH (07:23)
[2021-01-26] MEDS: carVEDilol 12.5mg tablet PO SCH (07:24)
[2021-01-26] MEDS: lisinopril 5mg tablet PO SCH (07:24)
[2021-01-26] MEDS: pantoprazole 40mg Tablet.DR PO SCH (07:24)
[2021-01-26] MEDS: docusate sod 100mg capsule PO SCH (07:28)
[2021-01-26 07:35] VITALS: BP 128/54
[2021-01-26] MEDS: insulin Lispro (HumaLOG) vial - multi-dose SQ SCH (09:54)
[2021-01-26 11:00] VITALS: BP 124/46
[2021-01-26] MEDS ORDERED: CLIN-97 PO (11:46)
[2021-01-26] MEDS: vancomycin/NS 1 GM ADD-VANTAGE 250 ML IV SCH (12:29)
--- NOTE | 2021-01-26 13:20 | NUR ---
Patient a&ox4. VSS. Discharge papers given to patient. Home wound vac placed, wound vac education given. IV removed, catheter intact. Cleared from PT. waiting for patient downstairs. Patient free from injury. Staff NA taking patient down to main lobby.
--- NOTE | 2021-01-26 13:43 | NUR ---
WOUND VAC EDUCATION PROVIDED BY WOUND CARE 1. Patient instructed to call the Wound Center or their Home Health Agency immediately if: * They notice a change in the color or amount of the fluid in the canister. * Their wound looks more red than usual or has a foul smell. * The skin around their wound looks reddened or irritated. * The dressing feels loose or appears to be loose. * They experience any increase or changes in their pain. * The alarm will not turn off. 2. Patient instructed that they should not be disconnected from suction for more than 2 hours at a time. * If they are not able to get the suction back on, they need to remove the dressing and take all of the foam out of the wound. * Then moisten sterile gauze with normal saline and place on/in the wound. * Change the dressing once a day until arrangements have been made to replace the wound vac dressing. 3. Patient instructed to turn the wound vac machine OFF and call 911 or go to the ED immediately if their canister fills rapidly with blood. 4. If any of these occur while in the hospital tell a nurse immediately. Addendum: 01/26/21 at 1343 by Channing Ponce RN Amended: Links added.
[2021-01-28] MEDS ORDERED: VANCOMYCIN LEVEL IV ONE (10:30)
== END 2021-01-26 13:30 | disposition home health service (06) | DRG 571 ==
LOC: ER 08:55 → ED HOLD 12:26 → SUR 3N 21:10
PROVIDERS: ADMIT Family Medicine; ATTEND Family Medicine
PROC: 0W9F0ZZ Drainage of Abdominal Wall, Open Approach (ICD-10-PCS; principal; 2021-01-25)
PROC: 0JB80ZZ Excision of Abdomen Subcutaneous Tissue and Fascia, Open Approach (ICD-10-PCS; 2021-01-25)
DX: S30.1XXA Contusion of abdominal wall, initial encounter (principal); L03.311 Cellulitis of abdominal wall; I48.91 Unspecified atrial fibrillation; I10 Essential (primary) hypertension; E03.9 Hypothyroidism, unspecified; E11.9 Type 2 diabetes mellitus without complications; E78.5 Hyperlipidemia, unspecified; Z20.822 Contact with and (suspected) exposure to COVID-19; E66.01 Morbid (severe) obesity due to excess calories; K52.9 Noninfective gastroenteritis and colitis, unspecified; Y83.8 Other surgical procedures as the cause of abnormal reaction of the patient, or of later complication, without mention of misadventure at the time of the procedure; G47.30 Sleep apnea, unspecified; Z90.710 Acquired absence of both cervix and uterus; Z88.1 Allergy status to other antibiotic agents; Z88.5 Allergy status to narcotic agent; Z88.8 Allergy status to other drugs, medicaments and biological substances; Z79.899 Other long term (current) drug therapy; Z79.82 Long term (current) use of aspirin; Z68.38 Body mass index [BMI] 38.0-38.9, adult; Y92.89 Other specified places as the place of occurrence of the external cause
CPT/HCPCS: 36415; 71045; 74176; 80048; 80053; 80202; 82948; 83036; 83605; 84145; 84443; 85025; 85610; 85651; 85730; 86140; 86885; 86900; 86901; 87040; 87081; 87635; 93005; 96365; 96366; 96368; 96375; 97116; 97161; 97530; 99285; A4618; A6550; A7000; G0378; J1100; J1170; J1815; J2175; J2250; J2405; J2543; J2704; J2710; J2765; J3010; J3370; J3490; J7030; J7070; J7120

== ENCOUNTER 2021-06-06 12:00 | Inpatient (IN) | payer MEDICARE ==
[~2021-06-06] VITALS: Ht 162.6 cm; Wt 127.0 kg
[~2021-06-06 12:00] MED LIST changes: -ACET-2615 PO; -ASPI-1265 PO; +ASPI81TA48 PO; -BENZ-49 PO; -CETI10TA15 PO; +CHOL100025 PO; +CLIN-97 PO; -DIPH-423 PO; +IXEK80AU2 SQ; +LACT1CAP65 PO; -LEVO25TA50 PO; +LEVO50TA8 PO; +LISI5TAB22 PO; -SIMV-42 PO; +SIMV-45 PO; -UBID1CAP54 PO
[2021-06-06] MEDS ORDERED: morphine 4 MG/ML inj SYRINge IV ONE (12:25)
[2021-06-06] MEDS ORDERED: piperacillin/tazo 3.375gm/50ml 50 ML IV ONE (12:35)
[2021-06-06 12:43] LABS: BASOPHILS % (AUTO) 0.5 % (0-1); EOSINOPHILS # (AUTO) 0.1 X10'3 (0-0.9); HEMATOCRIT 35.6 % (35.0-45.0); LYMPHOCYTES # (AUTO) 0.6 X10'3 (1.1-4.8); LYMPHOCYTES % (AUTO) 10.9 % (21-51); MEAN CORPUSCULAR HEMOGLOBIN 24.1 PG (27.0-31.0); MEAN CORPUSCULAR HGB CONC 30.8 g/dL (33.0-36.5); MEAN CORPUSCULAR VOLUME 78.1 FL (78-98); MONOCYTES # (AUTO) 0.4 X10'3 (0-0.9); MONOCYTES % (AUTO) 6.6 % (2-12); NEUTROPHILS # (AUTO) 4.3 X10'3 (1.8-7.7); PLATELET COUNT 268 X10'3 (140-440); RED BLOOD COUNT 4.55 X10'6 (4.20-5.60); RED CELL DISTRIBUTION WIDTH 22.6 % (11.5-14.5); WHITE BLOOD COUNT 5.4 X10'3 (4.5-11.0)
[2021-06-06] MEDS ORDERED: acetaminophen 325mg tablet PO ONE (12:45)
[2021-06-06] MEDS ORDERED: VANCOmycin 1250MG/NS 250ml Bag 250 ML IV ONE (13:00)
[2021-06-06 13:01] LABS: ALANINE AMINOTRANSFERASE 14 U/L (12-78); ALBUMIN 2.8 G/DL (3.4-5.0); ALBUMIN/GLOBULIN RATIO 0.6 (1.1-1.5); ALKALINE PHOSPHATASE 71 IU/L (46-116); ANION GAP 12 (8-16); ASPARTATE AMINO TRANSFERASE 18 U/L (10-37); BILIRUBIN,TOTAL 0.7 MG/DL (0.1-1.0); BLOOD UREA NITROGEN 83 MG/DL (7-18); BUN/CREATININE RATIO 29.5 (6.6-38.0); CALCIUM 8.8 MG/DL (8.5-10.1); CHLORIDE 107 MMOL/L (99-107); CREATININE 2.81 MG/DL (0.40-0.90); GLUCOSE 220 MG/DL (70-104); POTASSIUM 4.2 MMOL/L (3.5-5.1); SODIUM 141 MMOL/L (135-145); TOTAL CARBON DIOXIDE 22.2 MMOL/L (24-32); TOTAL PROTEIN 7.3 G/DL (6.4-8.2); eGFR 17 ML/MIN
[2021-06-06 13:23] LABS: ANISOCYTOSIS 3+; MICROCYTOSIS 1+; PLATELET ESTIMATE NORMAL
[2021-06-06] MEDS ORDERED: CEPH500C2 PO (13:36)
[2021-06-06] MEDS ORDERED: diphenhydrAMINE 50 mg/ml inj IV ONE (13:50)
--- NOTE | 2021-06-06 13:50 | NUR ---
Patient reports shortness of breath and rash on abdomen; no stridor; vancomycin stopped; ER provider notified.
--- NOTE | 2021-06-06 14:03 | NUR ---
gina farias of sat 76% on 15L non rebreather.
[2021-06-06] MEDS ORDERED: methylPREDNISolone sod succ 125mg/2ml vial IV ONE (14:05)
--- NOTE | 2021-06-06 14:06 | NUR ---
ER Physician notified 75% on 15 L nonrebreather; orders placed for CXR and Solu-Medrol.
[2021-06-06] MEDS ORDERED: epiNEPHrine 1 mg/ml inj IM STA (14:09)
[2021-06-06] MEDS ORDERED: racepinephrine 11.25mg/0.5ml nebule IH ONE ×2 (14:10→14:15)
[2021-06-06] MEDS ORDERED: famotidine/PF 10 mg/ml inj IV ONE (14:10)
--- NOTE | 2021-06-06 14:31 | NUR ---
Patient placed on BiPap; Dr. Mccullough at bedside.
[2021-06-06 14:53] LABS: ABG BASE EXCESS -7.8 mmol/L (-2.0-2.0); ABG HCO3 19.6 mmol/L (22.0-26.0); ABG OXYGEN SATURATION 94.9 % (94-97); ABG PO2 (T) 96.5 mmHg (75.0-100.0); ALLEN'S TEST POSITIVE; FCOHb 0.5 % (0.0-3.9); FMetHb 0.3 % (0.0-1.5); FO2Hb 94.1 % (94-97); TOTAL HEMOGLOBIN 12.8 G/dl (12.0-16.0)
[2021-06-06 15:12] LABS: D-DIMER 2.15 MG/L FEU (0-0.50)
[2021-06-06] MEDS ORDERED: POTA-188 PO (15:17)
[2021-06-06] MEDS ORDERED: AMIO200T61 PO (15:17)
[2021-06-06] MEDS ORDERED: SACU1TAB PO (15:17)
[2021-06-06] MEDS ORDERED: FURO80TA3 PO (15:17)
[2021-06-06] MEDS ORDERED: piperacillin/tazo 3.375gm/50ml 50 ML IV SCH (16:00)
[2021-06-06] MEDS ORDERED: acetaminophen 325mg tablet PO PRN (16:15)
[2021-06-06] MEDS ORDERED: MESSAGE TO PHARMACY PO ONE (16:15)
[2021-06-06] MEDS ORDERED: glucagon, human recombinant 1mg kit SUBCUT PRN (16:15)
[2021-06-06] MEDS ORDERED: ondansetron/PF 4mg/2ml inj IV PRN (16:15)
[2021-06-06] MEDS ORDERED: magnesium hydroxide 30ml (MOM) UD suspension PO PRN (16:15)
[2021-06-06] MEDS ORDERED: DEXTROSE 15 GM of carb/4 tabs (each vial/BOTTLE has 4 tablets) PO PRN ×2 (16:15)
[2021-06-06] MEDS ORDERED: mag hydrox/Alum hydrox/simeth 30ml oral suspension PO PRN (16:15)
[2021-06-06 16:39] LABS: HEMOGLOBIN A1C 7.7 % (4.5-6.2)
[2021-06-06] MEDS: clindamycin-Cleocin 900mg/D5W 50 ML IV SCH (18:00)
[2021-06-06] MEDS: carVEDilol 12.5mg tablet PO SCH (18:30)
[2021-06-06] MEDS: docusate sod 100mg capsule PO SCH (19:58)
[2021-06-06] MEDS: sacubitril/valsartan 24mg-26mg tablet PO SCH (19:59)
--- NOTE | 2021-06-06 20:10 | NUR ---
RT AT BEDSIDE REMOVING CPAP AND SWITCHING TO NC. PT TOLERATING WELL AND O2 SAT IS 99%
[2021-06-06] MEDS: potassium chloride 10mEq ER tablet PO SCH (21:39)
[2021-06-06] MEDS: apixaban 5mg tablet PO SCH (21:39)
[2021-06-06] MEDS: insulin Lispro (HumaLOG) vial - multi-dose SQ SCH (21:42)
[2021-06-06] MEDS: insulin glargine (Lantus) pen - multi-dose SQ SCH (21:44)
--- NOTE | 2021-06-06 21:52 | NUR ---
Reported low bp of 71/[address] Rose and recieved verbal order for 250 ml NS bolus
[2021-06-06] MEDS ORDERED: normal saline 1000ml 1,000 ML IV ONE (21:55)
--- NOTE | 2021-06-06 21:57 | NUR ---
Per Dr. Rose give 250mls of NS bolus. Order placed for 1000mls bolus with note to only give 250mls total.
[2021-06-06] MEDS: furosemide 40mg/4ml inj IV SCH (22:05)
[2021-06-06] MEDS: acetaminophen 325mg tablet PO PRN (22:57)
[2021-06-07 01:33] LABS: BASOPHILS % (AUTO) 0.2 % (0-1); EOSINOPHILS # (AUTO) 0.1 X10'3 (0-0.9); EOSINOPHILS % (AUTO) 0.5 % (0-6); HEMATOCRIT 36.3 % (35.0-45.0); LYMPHOCYTES # (AUTO) 0.2 X10'3 (1.1-4.8); LYMPHOCYTES % (AUTO) 2.2 % (21-51); MEAN CORPUSCULAR HEMOGLOBIN 24.7 PG (27.0-31.0); MEAN CORPUSCULAR HGB CONC 30.4 g/dL (33.0-36.5); MEAN CORPUSCULAR VOLUME 81.2 FL (78-98); MEAN PLATELET VOLUME 8.2 FL (7.4-10.4); MONOCYTES # (AUTO) 0.3 X10'3 (0-0.9); MONOCYTES % (AUTO) 2.8 % (2-12); NEUTROPHILS # (AUTO) 10.5 X10'3 (1.8-7.7); NEUTROPHILS % (AUTO) 94.3 % (42-75); PLATELET COUNT 232 X10'3 (140-440); RED BLOOD COUNT 4.47 X10'6 (4.20-5.60); RED CELL DISTRIBUTION WIDTH 23.3 % (11.5-14.5); WHITE BLOOD COUNT 11.1 X10'3 (4.5-11.0)
[2021-06-07 01:38] LABS: ALBUMIN 2.4 G/DL (3.4-5.0); ANION GAP 16 (8-16); BLOOD UREA NITROGEN 87 MG/DL (7-18); BUN/CREATININE RATIO 28.3 (6.6-38.0); CALCIUM 8.2 MG/DL (8.5-10.1); CHLORIDE 103 MMOL/L (99-107); CREATININE 3.07 MG/DL (0.40-0.90); GLUCOSE 335 MG/DL (70-104); SODIUM 136 MMOL/L (135-145); TOTAL CARBON DIOXIDE 17.1 MMOL/L (24-32); eGFR 15 ML/MIN
[2021-06-07] MEDS: clindamycin-Cleocin 900mg/D5W 50 ML IV SCH ×3 (01:40→16:04)
[2021-06-07 01:41] LABS: POTASSIUM 5.1 MMOL/L (3.5-5.1)
[2021-06-07 03:01] LABS: ANISOCYTOSIS 3+; PLATELET ESTIMATE NORMAL; TOTAL CELLS COUNTED 100
[2021-06-07 03:02] LABS: ELLIPTOCYTES FEW; POLYCHROMASIA FEW; TEAR DROP CELLS FEW
[2021-06-07 05:42] LABS: CLARITY,URINE CLOUDY (Clear); COLOR,URINE YELLOW (Yellow); GLUCOSE, URINE NEGATIVE (Neg); KETONES,URINE NEGATIVE (Neg); LEUKOCYTE ESTERASE ,URINE MODERATE (Neg); NITRITES, URINE NEGATIVE (Neg); OCCULT BLOOD,URINE LARGE (Neg); PH,URINE 5.5 (4.8-8.0); PROTEIN,URINE TRACE mg/dl (Neg); UROBILINOGEN,URINE 0.2 E.U/dL (0.2-1.0)
[2021-06-07 05:47] LABS: UA COLLECTION TYPE NON-SPECIFIED
[2021-06-07 05:49] LABS: RBC,URINE TNTC /HPF (0-2)
[2021-06-07 05:50] LABS: BACTERIA,URINE 1+ /HPF (Neg); MUCUS STRANDS NONE SEEN /LPF (Neg); SQUAMOUS EPITHELIAL CELL,UR MODERATE /LPF (FEW); WBC,URINE TNTC /HPF (0-4)
[2021-06-07 08:00] VITALS: BP 107/65
[2021-06-07] MEDS ORDERED: lisinopril 5mg tablet PO SCH (08:00)
[2021-06-07] MEDS: docusate sod 100mg capsule PO SCH ×2 (08:00→19:40)
[2021-06-07] MEDS: sacubitril/valsartan 24mg-26mg tablet PO SCH ×2 (08:00→19:32)
[2021-06-07] MEDS: acetaminophen 325mg tablet PO PRN (08:34)
[2021-06-07] MEDS: cholecalciferol (vitamin D3) 1,000 unit (25mcg) tablet PO SCH (08:35)
[2021-06-07] MEDS: multivitamins, therapeutics tablet PO SCH (08:35)
[2021-06-07] MEDS: ascorbic acid 500mg tablet PO SCH (08:36)
[2021-06-07] MEDS: aspirin 81mg, enteric-coated 1 TAB TABLET.DR PO SCH (08:36)
[2021-06-07] MEDS: levoTHYROXINE 25mcg tablet PO SCH (08:36)
[2021-06-07] MEDS: furosemide 40mg/4ml inj IV SCH ×2 (08:37→19:35)
[2021-06-07] MEDS: potassium chloride 10mEq ER tablet PO SCH ×2 (08:37→19:33)
[2021-06-07] MEDS: apixaban 5mg tablet PO SCH ×2 (08:38→19:33)
[2021-06-07] MEDS: amiodarone 200mg tablet PO SCH (08:38)
[2021-06-07] MEDS: atorvastatin 20mg tablet PO SCH (08:38)
[2021-06-07] MEDS: carVEDilol 12.5mg tablet PO SCH ×2 (08:38→17:40)
[2021-06-07] MEDS: insulin Lispro (HumaLOG) vial - multi-dose SQ SCH ×3 (09:01→19:38)
[2021-06-07] MEDS ORDERED: ondansetron 4mg rapidly disintigrating tab PO PRN (10:45)
[2021-06-07 11:00] VITALS: BP 95/56
[2021-06-07] MEDS: folic acid 0.4mg tablet PO SCH (13:27)
--- NOTE | 2021-06-07 13:37 | NUR ---
PRESSURE ULCER EDUCATION: DEFINITION: A pressure ulcer is an area of skin that breaks down when you stay in one position too long. The constant pressure against the skin reduces the blood flow to that area and the affected tissue dies. CAUSES: "Being bedridden or in a wheelchair "Fragile skin "Having a chronic condition, such as diabetes or vascular disease "Inability to move certain parts of your body without assistance "Older age "Incontinence of urine or stool SYMPTOMS: "A reddened area that DOES NOT turn white when pressed on - this can be the beginning of a pressure ulcer "A blister, deep sore or a crater - these can be advanced pressure ulcers FIRST AID: "Relieve the pressure on this area "Keep the area clean and dry "Call your primary doctor if you see any of the above symptoms "DO NOT massage the area "DO NOT use a donut shaped or ring shaped pillow- these actually interfere with the blood flow and cause complications PREVENTION: "Check for pressure ulcers everyday "Change position at least every two hours to relieve pressure "Use items that help relieve pressure- pillows, sheepskin, foam padding, and powders. "Keep skin clean and dry "Eat healthy well balanced meals "Exercise daily IF YOU SEE ANY OF THESE SYMPTOMS WHILE IN THE HOSPITAL - TELL YOUR NURSE IMMEDIATELY. IF YOU SEE ANY OF THESE SYMPTOMS WHILE AT HOME OR HAVE ANY QUESTIONS OR CONCERNS ABOUT PRESSURE ULCERS - CALL YOUR PRIMARY DOCTOR IMMEDIATELY. Addendum: 06/07/21 at 1338 by Salina Avila LVN Amended: Links added.
[2021-06-07 15:00] VITALS: BP 133/55
[2021-06-07 18:00] VITALS: BP 107/64
--- NOTE | 2021-06-07 18:26 | NUR ---
Problems reprioritized. Patient report given, questions answered & plan of care reviewed with Denise NAGY.
[2021-06-07] MEDS: mineral oil/petrolatum, white cream 113gm jar TP SCH (19:32)
[2021-06-07] MEDS: traMADol 50MG tablet PO PRN (19:35)
[2021-06-07] MEDS: insulin glargine (Lantus) pen - multi-dose SQ SCH (21:45)
[2021-06-08] MEDS: clindamycin-Cleocin 900mg/D5W 50 ML IV SCH ×4 (00:08→23:02)
[2021-06-08 02:00] VITALS: BP 125/69
[2021-06-08 06:00] VITALS: BP 105/64
--- NOTE | 2021-06-08 06:25 | NUR ---
Problems reprioritized. Patient report given, questions answered & plan of care reviewed with Elizabeth Meyers RN. patient recieved on sliding scale level 4, but will be increased to level 5
[2021-06-08 07:44] LABS: BASOPHILS % (AUTO) 0.4 % (0-1); EOSINOPHILS % (AUTO) 0.1 % (0-6); LYMPHOCYTES # (AUTO) 0.3 X10'3 (1.1-4.8); LYMPHOCYTES % (AUTO) 3.2 % (21-51); MEAN PLATELET VOLUME 8.4 FL (7.4-10.4); MONOCYTES # (AUTO) 0.3 X10'3 (0-0.9); MONOCYTES % (AUTO) 4.1 % (2-12); NEUTROPHILS # (AUTO) 7.7 X10'3 (1.8-7.7); NEUTROPHILS % (AUTO) 92.2 % (42-75); PLATELET COUNT 222 X10'3 (140-440); WHITE BLOOD COUNT 8.4 X10'3 (4.5-11.0)
[2021-06-08] MEDS: potassium chloride 10mEq ER tablet PO SCH ×2 (08:00→19:48)
[2021-06-08 08:01] LABS: ALBUMIN 2.5 G/DL (3.4-5.0); ANION GAP 11 (8-16); BLOOD UREA NITROGEN 105 MG/DL (7-18); BUN/CREATININE RATIO 27.6 (6.6-38.0); CALCIUM 8.3 MG/DL (8.5-10.1); CHLORIDE 106 MMOL/L (99-107); GLUCOSE 122 MG/DL (70-104); POTASSIUM 5.4 MMOL/L (3.5-5.1); SODIUM 138 MMOL/L (135-145); TOTAL CARBON DIOXIDE 20.9 MMOL/L (24-32); eGFR 12 ML/MIN
[2021-06-08 08:35] LABS: HEMOGLOBIN 11.4 g/dl (12.0-16.0); RED BLOOD COUNT 4.51 X10'6 (4.20-5.60)
[2021-06-08 08:36] LABS: HEMATOCRIT 35.8 % (35.0-45.0); MEAN CORPUSCULAR HEMOGLOBIN 25.4 PG (27.0-31.0); MEAN CORPUSCULAR VOLUME 79.3 FL (78-98); RED CELL DISTRIBUTION WIDTH 22.7 % (11.5-14.5)
[2021-06-08] MEDS: folic acid 0.4mg tablet PO SCH (08:56)
[2021-06-08] MEDS: docusate sod 100mg capsule PO SCH ×2 (08:56→19:33)
[2021-06-08] MEDS: levoTHYROXINE 25mcg tablet PO SCH (08:56)
[2021-06-08] MEDS: carVEDilol 12.5mg tablet PO SCH ×2 (08:56→17:30)
[2021-06-08] MEDS: atorvastatin 20mg tablet PO SCH (08:57)
[2021-06-08] MEDS: apixaban 5mg tablet PO SCH ×2 (08:57→19:47)
[2021-06-08] MEDS: furosemide 40mg/4ml inj IV SCH (08:57)
[2021-06-08] MEDS: ascorbic acid 500mg tablet PO SCH (08:57)
[2021-06-08] MEDS: cholecalciferol (vitamin D3) 1,000 unit (25mcg) tablet PO SCH (08:57)
[2021-06-08] MEDS: sacubitril/valsartan 24mg-26mg tablet PO SCH ×2 (08:57→19:45)
[2021-06-08] MEDS: amiodarone 200mg tablet PO SCH (08:58)
[2021-06-08] MEDS: aspirin 81mg, enteric-coated 1 TAB TABLET.DR PO SCH (08:58)
[2021-06-08] MEDS: mineral oil/petrolatum, white cream 113gm jar TP SCH ×2 (08:58→19:50)
[2021-06-08] MEDS: multivitamins, therapeutics tablet PO SCH (08:58)
[2021-06-08] MEDS: insulin Lispro (HumaLOG) vial - multi-dose SQ SCH ×2 (09:14→13:51)
[2021-06-08 11:00] VITALS: BP 93/58
[2021-06-08 15:00] VITALS: BP 100/60
--- NOTE | 2021-06-08 15:03 | NUR ---
Noted pt with T2DM, current A1c 7.7% which is down from 8.2% 01/22/21 per EMR. Pt seen by wound care, per report pt with surgical wounds to umbilicus and midline lower abdomen with an intact DTI to left buttock. Pt seen at bedside provided with written and verbal protein and DM nutrition therapy educations. Pt states her SO in February and since then her BG levels have been dipping into the 40s d/t not eating as much, however medications have since been adjusted. Pt reports working with her physician regarding BG levels. All of patient's questions were answered at this time. Pt endorses a good appetite which is evident with 75-100% PO intake on heart healthy CHO controlled diet. Pt agrees to double protein BIDLD for satiety and requests strawberries WL and no brussel sprouts, d/w dietary. Pt denies food allergies or difficulty chewing/swallowing. Pt provided with RD contact information and encouraged to reach out for further food preferences and/or questions regarding educations provided. Will remain available. Addendum: 06/08/21 at [address] Amended: Links added.
[2021-06-08] MEDS: traMADol 50MG tablet PO PRN (16:45)
[2021-06-08 18:00] VITALS: BP 80/48
[2021-06-08] MEDS: dextrose 50%-water 50ml dispensing syringe IV PRN (20:57)
[2021-06-08] MEDS: insulin glargine (Lantus) pen - multi-dose SQ SCH (21:00)
[2021-06-08 22:00] VITALS: BP 83/51
[2021-06-09] VITALS (10 sets, daily range): BP systolic 73–141; BP diastolic 43–112
[2021-06-09] MEDS: dextrose 50%-water 50ml dispensing syringe IV PRN ×2 (00:57→20:29)
--- NOTE | 2021-06-09 01:09 | NUR ---
Pt woke up feeling like her blood sugar was low. Nurse fran and it was 38, gave another 50% dex and a snack repeat BS 149. Addendum: 06/09/21 at 0120 by Ava Bear RN Amended: Links added.
--- NOTE | 2021-06-09 02:00 | NUR ---
made aware of low blood sugars x2 and treating pt with 1Amp of D50 as per protocol (as pt couldn't tolerate eating 4+ glucose tabs). states that with CHF following the hypo/hyper glycemic protocol with amps of dextrose is the way to go. Will continue to monitor and treat BS. Addendum: 06/09/21 at 0213 by Ava Bear RN Amended: Links added.
[2021-06-09] MEDS ORDERED: normal saline 250ml IV soln 250 ML IV ONE (04:00)
--- NOTE | 2021-06-09 04:04 | NUR ---
Pt with low out put of 150ml in wick, low blood pressure of 80/40s and 70/40. MD ordered 250ml slow bolus. Addendum: 06/09/21 at 0406 by Ava Bera RN Amended: Links added.
--- NOTE | 2021-06-09 06:22 | NUR ---
Problems reprioritized. Patient report given, questions answered & plan of care reviewed with Marcus NAGY. Addendum: 06/09/21 at 0622 by Ava Bear RN Amended: Links added.
[2021-06-09 06:26] LABS: BASOPHILS % (AUTO) 0.5 % (0-1); EOSINOPHILS # (AUTO) 0.5 X10'3 (0-0.9); EOSINOPHILS % (AUTO) 6.7 % (0-6); HEMATOCRIT 34.8 % (35.0-45.0); HEMOGLOBIN 10.9 g/dl (12.0-16.0); LYMPHOCYTES # (AUTO) 0.4 X10'3 (1.1-4.8); LYMPHOCYTES % (AUTO) 5.2 % (21-51); MEAN CORPUSCULAR HEMOGLOBIN 24.7 PG (27.0-31.0); MEAN CORPUSCULAR HGB CONC 31.2 g/dL (33.0-36.5); MEAN CORPUSCULAR VOLUME 79.2 FL (78-98); MEAN PLATELET VOLUME 8.6 FL (7.4-10.4); MONOCYTES # (AUTO) 0.2 X10'3 (0-0.9); MONOCYTES % (AUTO) 2.7 % (2-12); NEUTROPHILS # (AUTO) 6.3 X10'3 (1.8-7.7); NEUTROPHILS % (AUTO) 84.9 % (42-75); PLATELET COUNT 188 X10'3 (140-440); RED CELL DISTRIBUTION WIDTH 23.4 % (11.5-14.5); WHITE BLOOD COUNT 7.4 X10'3 (4.5-11.0)
[2021-06-09 06:34] LABS: ALBUMIN 2.2 G/DL (3.4-5.0); ANION GAP 10 (8-16); BLOOD UREA NITROGEN 120 MG/DL (7-18); BUN/CREATININE RATIO 26.1 (6.6-38.0); CALCIUM 7.9 MG/DL (8.5-10.1); CHLORIDE 105 MMOL/L (99-107); POTASSIUM 5.5 MMOL/L (3.5-5.1); SODIUM 135 MMOL/L (135-145); eGFR 9 ML/MIN
[2021-06-09 06:36] LABS: GLUCOSE 47 MG/DL (70-104)
[2021-06-09 06:53] LABS: ANISOCYTOSIS 3+; MICROCYTOSIS 1+; PLATELET ESTIMATE NORMAL; POIKILOCYTOSIS FEW
[2021-06-09 06:54] LABS: ELLIPTOCYTES FEW
--- NOTE | 2021-06-09 06:58 | NUR ---
Glucose 47, NOC called, no answer. Spoke to pharmacy, told that D50 can't be pulled unless MD notifies them and to hang D10. SBP 73 pt damari, lethargic. AM hospitalist paged
[2021-06-09] MEDS: DOBUTamine-DoBUTrex 500mg/D5W 250 ML IV SCH ×2 (07:41→21:12)
[2021-06-09] MEDS: levoTHYROXINE 25mcg tablet PO SCH (08:00)
[2021-06-09] MEDS: amiodarone 200mg tablet PO SCH (08:00)
[2021-06-09] MEDS: mineral oil/petrolatum, white cream 113gm jar TP SCH ×2 (08:00→20:31)
[2021-06-09] MEDS: cholecalciferol (vitamin D3) 1,000 unit (25mcg) tablet PO SCH (08:00)
[2021-06-09] MEDS: potassium chloride 10mEq ER tablet PO SCH ×2 (08:00→20:30)
[2021-06-09] MEDS: multivitamins, therapeutics tablet PO SCH (08:00)
[2021-06-09] MEDS ORDERED: levoFLOXACIN-Levaquin 250mg/D5 50 ML IV SCH (08:00)
[2021-06-09] MEDS: docusate sod 100mg capsule PO SCH ×2 (08:00→20:30)
--- NOTE | 2021-06-09 08:19 | NUR ---
promotional table spacer PAGER ID: [phone] MESSAGE: [id number](Asher) SBP 83 on dobutamine. Pt states she is itchy, appears flushed. accucheck 71
[2021-06-09] MEDS ORDERED: normal saline 500ml IV soln 500 ML IV SCH (09:00)
[2021-06-09] MEDS: linezolid 600mg/300ml PREMIX 300 ML IV SCH ×2 (10:58→20:42)
[2021-06-09] MEDS: ascorbic acid 500mg tablet PO SCH (11:26)
[2021-06-09] MEDS: aspirin 81mg, enteric-coated 1 TAB TABLET.DR PO SCH (11:26)
[2021-06-09] MEDS: apixaban 5mg tablet PO SCH ×2 (11:27→20:30)
[2021-06-09] MEDS: atorvastatin 20mg tablet PO SCH (11:27)
[2021-06-09] MEDS: folic acid 0.4mg tablet PO SCH (11:27)
[2021-06-09] MEDS: normal saline 1000ml 1,000 ML IV SCH (16:53)
--- NOTE | 2021-06-09 16:54 | NUR ---
MD ross, UOP 100cc in [place], BP 78/56. Awaiting orders.
--- NOTE | 2021-06-09 18:41 | NUR ---
Patient in room PCU 3017. I have received report from Marcus NAGY and had the opportunity to ask questions and assume patient care.
[2021-06-09] MEDS: insulin glargine (Lantus) pen - multi-dose SQ SCH (20:42)
[2021-06-10] VITALS (16 sets, daily range): BP systolic 71–156; BP diastolic 44–87
[2021-06-10] MEDS: HYDROcodone/acetaminophen 5mg/325mg tablet PO PRN (00:33)
[2021-06-10] MEDS: normal saline 1000ml 1,000 ML IV SCH (04:40)
[2021-06-10 06:01] LABS: ALBUMIN 2.2 G/DL (3.4-5.0); ANION GAP 12 (8-16); BLOOD UREA NITROGEN 123 MG/DL (7-18); BUN/CREATININE RATIO 26.4 (6.6-38.0); CALCIUM 7.7 MG/DL (8.5-10.1); CHLORIDE 103 MMOL/L (99-107); CREATININE 4.66 MG/DL (0.40-0.90); GLUCOSE 53 MG/DL (70-104); POTASSIUM 5.8 MMOL/L (3.5-5.1); SODIUM 132 MMOL/L (135-145); TOTAL CARBON DIOXIDE 17.2 MMOL/L (24-32); eGFR 9 ML/MIN
[2021-06-10 06:22] LABS: BASOPHILS % (AUTO) 0.2 % (0-1); EOSINOPHILS # (AUTO) 0.4 X10'3 (0-0.9); HEMATOCRIT 34.3 % (35.0-45.0); HEMOGLOBIN 10.8 g/dl (12.0-16.0); LYMPHOCYTES # (AUTO) 0.3 X10'3 (1.1-4.8); LYMPHOCYTES % (AUTO) 4.8 % (21-51); MEAN CORPUSCULAR HEMOGLOBIN 24.7 PG (27.0-31.0); MEAN CORPUSCULAR HGB CONC 31.5 g/dL (33.0-36.5); MEAN CORPUSCULAR VOLUME 78.2 FL (78-98); MEAN PLATELET VOLUME 8.6 FL (7.4-10.4); MONOCYTES # (AUTO) 0.2 X10'3 (0-0.9); MONOCYTES % (AUTO) 3.6 % (2-12); NEUTROPHILS # (AUTO) 5.5 X10'3 (1.8-7.7); NEUTROPHILS % (AUTO) 85.4 % (42-75); PLATELET COUNT 187 X10'3 (140-440); RED BLOOD COUNT 4.38 X10'6 (4.20-5.60); RED CELL DISTRIBUTION WIDTH 23.1 % (11.5-14.5); WHITE BLOOD COUNT 6.5 X10'3 (4.5-11.0)
--- NOTE | 2021-06-10 06:28 | NUR ---
Problems reprioritized. Patient report given, questions answered & plan of care reviewed with Marcus NAGY.
--- NOTE | 2021-06-10 07:24 | NUR ---
3022S(Asher) Serum glucose 53, K 5.8, Cr 4.66 UOP 500 cc last night. SBP 77. Marcus NAGY TY.
[2021-06-10] MEDS: dextrose 50%-water 50ml dispensing syringe IV PRN (07:54)
[2021-06-10] MEDS ORDERED: dextrose 5%-1/2 normal saline 1,000 ML IV SCH (08:00)
[2021-06-10] MEDS ORDERED: sodium polystyrene sulfonate 15gm/60ml oral suspension PO ONE (08:00)
[2021-06-10] MEDS: potassium chloride 10mEq ER tablet PO SCH ×2 (08:00→20:00)
[2021-06-10] MEDS ORDERED: normal saline 500ml IV soln 500 ML IV ONE (08:00)
[2021-06-10] MEDS: docusate sod 100mg capsule PO SCH ×2 (08:00→20:00)
[2021-06-10] MEDS: linezolid 600mg/300ml PREMIX 300 ML IV SCH (08:15)
[2021-06-10 08:21] LABS: PLATELET ESTIMATE NORMAL; POLYCHROMASIA 1+
[2021-06-10 08:22] LABS: ANISOCYTOSIS 3+; BURR CELLS 1+; ELLIPTOCYTES FEW; HYPOCHROMASIA 1+; MICROCYTOSIS 1+; TEAR DROP CELLS FEW
[2021-06-10] MEDS: folic acid 0.4mg tablet PO SCH (08:35)
[2021-06-10] MEDS: atorvastatin 20mg tablet PO SCH (08:35)
[2021-06-10] MEDS: apixaban 5mg tablet PO SCH ×2 (08:35→20:52)
[2021-06-10] MEDS: ascorbic acid 500mg tablet PO SCH (08:35)
[2021-06-10] MEDS: levoTHYROXINE 25mcg tablet PO SCH (08:35)
[2021-06-10] MEDS: cholecalciferol (vitamin D3) 1,000 unit (25mcg) tablet PO SCH (08:35)
[2021-06-10] MEDS: aspirin 81mg, enteric-coated 1 TAB TABLET.DR PO SCH (08:35)
[2021-06-10] MEDS: amiodarone 200mg tablet PO SCH (08:35)
[2021-06-10] MEDS: multivitamins, therapeutics tablet PO SCH (08:35)
[2021-06-10] MEDS: mineral oil/petrolatum, white cream 113gm jar TP SCH ×2 (08:36→20:53)
[2021-06-10] MEDS: DOBUTamine-DoBUTrex 500mg/D5W 250 ML IV SCH (10:06)
[2021-06-10] MEDS ORDERED: sodium bicarbonate (8.4%) inj. 100 MEQ in dextrose 5%-water 1,000 ML IV SCH (10:45)
[2021-06-10] MEDS: aztreonam inj. 500 MG in normal saline 100ml IV soln 100 ML IV SCH (11:25)
--- NOTE | 2021-06-10 11:43 | NUR ---
Initial: Pt admitted w/ acute hypercapnic respiratory failure secondary to decompensated heart failure, MUMTAZ w/ CKD, and BLE cellulitis per EMR. Currently on Heart Healthy/Carb controlled diet w/ double protein BID, eating avg 85% x 7 meals meeting est nutrient needs at this time. LBM 06/09 receiving routine colace. No new nutrition intervention implemented at this time. Noted pt started on Zyvox, provided pt w/ written and verbal low tyramine diet education w/ RD contact info. Will continue to monitor. Recs; 1. Continue Heart Healthy/Carb controlled diet as tolerated 2. Double protein BIDBD 3. Bowel care per rx 4. Weekly wts Addendum: 06/10/21 at [address] Amended: Links added.
[2021-06-10] MEDS: DAPTOmycin inj. 500 MG in normal saline 100ml IV soln 100 ML IV SCH (12:48)
[2021-06-10 14:44] LABS: ALBUMIN 2.1 G/DL (3.4-5.0); ANION GAP 12 (8-16); BLOOD UREA NITROGEN 118 MG/DL (7-18); BUN/CREATININE RATIO 24.9 (6.6-38.0); CALCIUM 7.8 MG/DL (8.5-10.1); CHLORIDE 106 MMOL/L (99-107); CREATININE 4.73 MG/DL (0.40-0.90); GLUCOSE 93 MG/DL (70-104); POTASSIUM 5.1 MMOL/L (3.5-5.1); SODIUM 137 MMOL/L (135-145); TOTAL CARBON DIOXIDE 18.6 MMOL/L (24-32); eGFR 9 ML/MIN
[2021-06-10] MEDS: insulin glargine (Lantus) pen - multi-dose SQ SCH (20:42)
[2021-06-10] MEDS ORDERED: furosemide 10 MG/1 ML 10ml inj IV SCH (20:50)
[2021-06-10] MEDS ORDERED: methylPREDNISolone sod succ 125mg/2ml vial IV ONE (20:50)
[2021-06-10] MEDS: traMADol 50MG tablet PO PRN (20:52)
[2021-06-11] VITALS (11 sets, daily range): BP systolic 125–180; BP diastolic 55–85
[2021-06-11] MEDS: aztreonam inj. 500 MG in normal saline 100ml IV soln 100 ML IV SCH ×2 (03:11→09:41)
[2021-06-11] MEDS: traMADol 50MG tablet PO PRN (03:26)
[2021-06-11] MEDS: furosemide 40mg/4ml inj IV SCH ×4 (03:27→19:34)
[2021-06-11] MEDS: DOBUTamine-DoBUTrex 500mg/D5W 250 ML IV SCH ×2 (03:57→18:39)
[2021-06-11 06:23] LABS: BASOPHILS % (AUTO) 0.1 % (0-1); EOSINOPHILS % (AUTO) 0.1 % (0-6); HEMATOCRIT 37.5 % (35.0-45.0); HEMOGLOBIN 11.6 g/dl (12.0-16.0); LYMPHOCYTES # (AUTO) 0.2 X10'3 (1.1-4.8); LYMPHOCYTES % (AUTO) 4.6 % (21-51); MEAN CORPUSCULAR VOLUME 77.6 FL (78-98); MEAN PLATELET VOLUME 8.6 FL (7.4-10.4); MONOCYTES % (AUTO) 0.7 % (2-12); NEUTROPHILS % (AUTO) 94.5 % (42-75); PLATELET COUNT 182 X10'3 (140-440); RED BLOOD COUNT 4.83 X10'6 (4.20-5.60); RED CELL DISTRIBUTION WIDTH 23.5 % (11.5-14.5); WHITE BLOOD COUNT 4.3 X10'3 (4.5-11.0)
[2021-06-11 06:27] LABS: ALBUMIN 2.3 G/DL (3.4-5.0); ANION GAP 15 (8-16); BLOOD UREA NITROGEN 114 MG/DL (7-18); BUN/CREATININE RATIO 25.5 (6.6-38.0); CALCIUM 7.7 MG/DL (8.5-10.1); CHLORIDE 103 MMOL/L (99-107); CREATININE 4.47 MG/DL (0.40-0.90); GLUCOSE 218 MG/DL (70-104); POTASSIUM 5.4 MMOL/L (3.5-5.1); SODIUM 136 MMOL/L (135-145); eGFR 10 ML/MIN
[2021-06-11] MEDS: HYDROcodone/acetaminophen 5mg/325mg tablet PO PRN ×2 (07:33→18:47)
[2021-06-11] MEDS ORDERED: albumin (human) 25% 100ml IV 100 ML IV PRN (07:40)
[2021-06-11] MEDS ORDERED: heparin 1,000 units/ml 10ml inj HE ONE ×2 (07:45)
[2021-06-11] MEDS: docusate sod 100mg capsule PO SCH ×2 (08:00→19:36)
[2021-06-11] MEDS ORDERED: levoFLOXACIN-Levaquin 250mg/D5 50 ML IV SCH (08:00)
[2021-06-11] MEDS: levoTHYROXINE 25mcg tablet PO SCH (08:20)
[2021-06-11] MEDS: apixaban 5mg tablet PO SCH ×2 (08:20→19:34)
[2021-06-11] MEDS: folic acid 0.4mg tablet PO SCH (08:20)
[2021-06-11] MEDS: multivitamins, therapeutics tablet PO SCH (08:22)
[2021-06-11] MEDS: ascorbic acid 500mg tablet PO SCH (08:22)
[2021-06-11] MEDS: atorvastatin 20mg tablet PO SCH (08:22)
[2021-06-11] MEDS: cholecalciferol (vitamin D3) 1,000 unit (25mcg) tablet PO SCH (08:22)
[2021-06-11] MEDS: potassium chloride 10mEq ER tablet PO SCH ×2 (08:22→19:34)
[2021-06-11] MEDS: aspirin 81mg, enteric-coated 1 TAB TABLET.DR PO SCH (08:30)
[2021-06-11] MEDS: amiodarone 200mg tablet PO SCH (08:30)
[2021-06-11] MEDS: mineral oil/petrolatum, white cream 113gm jar TP SCH ×2 (08:31→19:38)
[2021-06-11] MEDS: insulin Lispro (HumaLOG) vial - multi-dose SQ SCH (19:19)
[2021-06-11] MEDS: insulin glargine (Lantus) pen - multi-dose SQ SCH (22:13)
[2021-06-12] VITALS (13 sets, daily range): BP systolic 120–162; BP diastolic 62–98
[2021-06-12] MEDS: furosemide 40mg/4ml inj IV SCH ×4 (03:02→23:45)
[2021-06-12] MEDS: folic acid 0.4mg tablet PO SCH (07:23)
[2021-06-12] MEDS: levoTHYROXINE 25mcg tablet PO SCH (07:24)
[2021-06-12] MEDS: amiodarone 200mg tablet PO SCH (07:24)
[2021-06-12] MEDS: aspirin 81mg, enteric-coated 1 TAB TABLET.DR PO SCH (07:24)
[2021-06-12] MEDS: multivitamins, therapeutics tablet PO SCH (07:24)
[2021-06-12] MEDS: atorvastatin 20mg tablet PO SCH (07:24)
[2021-06-12] MEDS: potassium chloride 10mEq ER tablet PO SCH ×2 (07:24→21:15)
[2021-06-12] MEDS: cholecalciferol (vitamin D3) 1,000 unit (25mcg) tablet PO SCH (07:24)
[2021-06-12] MEDS: ascorbic acid 500mg tablet PO SCH (07:24)
[2021-06-12] MEDS: docusate sod 100mg capsule PO SCH ×2 (07:24→20:00)
[2021-06-12] MEDS: apixaban 5mg tablet PO SCH ×2 (07:24→21:15)
[2021-06-12] MEDS: mineral oil/petrolatum, white cream 113gm jar TP SCH ×2 (07:25→21:15)
[2021-06-12] MEDS: DOBUTamine-DoBUTrex 500mg/D5W 250 ML IV SCH ×3 (09:37→23:03)
[2021-06-12 10:03] LABS: BASOPHILS % (AUTO) 0.1 % (0-1); EOSINOPHILS % (AUTO) 0.3 % (0-6); LYMPHOCYTES # (AUTO) 0.4 X10'3 (1.1-4.8); LYMPHOCYTES % (AUTO) 6.6 % (21-51); MEAN PLATELET VOLUME 8.7 FL (7.4-10.4); MONOCYTES # (AUTO) 0.5 X10'3 (0-0.9); MONOCYTES % (AUTO) 7.3 % (2-12); NEUTROPHILS # (AUTO) 5.4 X10'3 (1.8-7.7); NEUTROPHILS % (AUTO) 85.7 % (42-75); PLATELET COUNT 187 X10'3 (140-440); RED CELL DISTRIBUTION WIDTH 24.3 % (11.5-14.5); WHITE BLOOD COUNT 6.3 X10'3 (4.5-11.0)
[2021-06-12 10:35] LABS: HEMATOCRIT 33.8 % (35.0-45.0); HEMOGLOBIN 11.1 g/dl (12.0-16.0); RED BLOOD COUNT 4.43 X10'6 (4.20-5.60)
[2021-06-12 10:36] LABS: MEAN CORPUSCULAR HEMOGLOBIN 25.1 PG (27.0-31.0); MEAN CORPUSCULAR HGB CONC 32.9 g/dL (33.0-36.5); MEAN CORPUSCULAR VOLUME 76.2 FL (78-98)
[2021-06-12] MEDS: DAPTOmycin inj. 500 MG in normal saline 100ml IV soln 100 ML IV SCH (11:02)
[2021-06-12 12:23] LABS: ALANINE AMINOTRANSFERASE 22 U/L (12-78); ALBUMIN 2.4 G/DL (3.4-5.0); ALBUMIN/GLOBULIN RATIO 0.6 (1.1-1.5); ALKALINE PHOSPHATASE 101 IU/L (46-116); ASPARTATE AMINO TRANSFERASE 8 U/L (10-37); BILIRUBIN,TOTAL 0.7 MG/DL (0.1-1.0); BLOOD UREA NITROGEN 116 MG/DL (7-18); BUN/CREATININE RATIO 26.7 (6.6-38.0); CALCIUM 7.9 MG/DL (8.5-10.1); CREATININE 4.34 MG/DL (0.40-0.90); GLUCOSE 243 MG/DL (70-104); TOTAL CARBON DIOXIDE 19.6 MMOL/L (24-32); TOTAL PROTEIN 6.6 G/DL (6.4-8.2); eGFR 10 ML/MIN
[2021-06-12 13:06] LABS: ANION GAP 14 (8-16); CHLORIDE 101 MMOL/L (99-107); POTASSIUM 5.1 MMOL/L (3.5-5.1); SODIUM 135 MMOL/L (135-145)
[2021-06-12] MEDS: insulin Lispro (HumaLOG) vial - multi-dose SQ SCH ×2 (13:43→19:04)
[2021-06-12] MEDS: carVEDilol 3.125mg tablet PO SCH (18:30)
[2021-06-12] MEDS: insulin glargine (Lantus) pen - multi-dose SQ SCH (21:00)
[2021-06-12] MEDS: HYDROcodone/acetaminophen 5mg/325mg tablet PO PRN (21:14)
--- NOTE | 2021-06-12 21:24 | NUR ---
blood sugat sy 2125 60. Ptovided orange juice, manjit crackers, cheese stick. Patient not feeling symptomatic,
[2021-06-13] VITALS (8 sets, daily range): BP systolic 90–145; BP diastolic 63–83
[2021-06-13] MEDS: furosemide 40mg/4ml inj IV SCH ×4 (03:04→19:41)
[2021-06-13] MEDS: HYDROcodone/acetaminophen 5mg/325mg tablet PO PRN (03:09)
[2021-06-13] MEDS: carVEDilol 3.125mg tablet PO SCH ×2 (07:30→18:12)
[2021-06-13] MEDS: ascorbic acid 500mg tablet PO SCH (08:00)
[2021-06-13] MEDS: mineral oil/petrolatum, white cream 113gm jar TP SCH ×2 (08:00→22:27)
[2021-06-13] MEDS: atorvastatin 20mg tablet PO SCH (08:00)
[2021-06-13] MEDS: apixaban 5mg tablet PO SCH ×2 (08:00→19:41)
[2021-06-13] MEDS: amiodarone 200mg tablet PO SCH (08:00)
[2021-06-13] MEDS: folic acid 0.4mg tablet PO SCH (08:00)
[2021-06-13] MEDS: docusate sod 100mg capsule PO SCH ×2 (08:00→20:00)
[2021-06-13] MEDS: aspirin 81mg, enteric-coated 1 TAB TABLET.DR PO SCH (08:00)
[2021-06-13] MEDS: potassium chloride 10mEq ER tablet PO SCH ×2 (08:00→19:44)
[2021-06-13] MEDS: multivitamins, therapeutics tablet PO SCH (08:00)
[2021-06-13] MEDS: levoTHYROXINE 25mcg tablet PO SCH (08:00)
[2021-06-13] MEDS: cholecalciferol (vitamin D3) 1,000 unit (25mcg) tablet PO SCH (08:00)
[2021-06-13 08:09] LABS: BASOPHILS % (AUTO) 0.2 % (0-1); EOSINOPHILS # (AUTO) 0.3 X10'3 (0-0.9); EOSINOPHILS % (AUTO) 4.2 % (0-6); HEMATOCRIT 37.1 % (35.0-45.0); HEMOGLOBIN 11.6 g/dl (12.0-16.0); LYMPHOCYTES # (AUTO) 0.7 X10'3 (1.1-4.8); LYMPHOCYTES % (AUTO) 9.5 % (21-51); MEAN CORPUSCULAR HEMOGLOBIN 24.1 PG (27.0-31.0); MEAN CORPUSCULAR HGB CONC 31.2 g/dL (33.0-36.5); MEAN CORPUSCULAR VOLUME 77.2 FL (78-98); MEAN PLATELET VOLUME 8.4 FL (7.4-10.4); MONOCYTES # (AUTO) 0.6 X10'3 (0-0.9); MONOCYTES % (AUTO) 8.3 % (2-12); NEUTROPHILS % (AUTO) 77.8 % (42-75); PLATELET COUNT 200 X10'3 (140-440); RED BLOOD COUNT 4.81 X10'6 (4.20-5.60); RED CELL DISTRIBUTION WIDTH 24.2 % (11.5-14.5); WHITE BLOOD COUNT 7.7 X10'3 (4.5-11.0)
[2021-06-13 08:19] LABS: ALANINE AMINOTRANSFERASE 23 U/L (12-78); ALBUMIN 2.7 G/DL (3.4-5.0); ALBUMIN/GLOBULIN RATIO 0.6 (1.1-1.5); ALKALINE PHOSPHATASE 108 IU/L (46-116); ANION GAP 12 (8-16); ASPARTATE AMINO TRANSFERASE 16 U/L (10-37); BILIRUBIN,TOTAL 0.7 MG/DL (0.1-1.0); BLOOD UREA NITROGEN 111 MG/DL (7-18); BUN/CREATININE RATIO 28.4 (6.6-38.0); CALCIUM 8.2 MG/DL (8.5-10.1); CHLORIDE 102 MMOL/L (99-107); CREATININE 3.91 MG/DL (0.40-0.90); GLUCOSE 81 MG/DL (70-104); POTASSIUM 4.7 MMOL/L (3.5-5.1); SODIUM 139 MMOL/L (135-145); TOTAL CARBON DIOXIDE 24.7 MMOL/L (24-32); TOTAL PROTEIN 7.1 G/DL (6.4-8.2); eGFR 11 ML/MIN
[2021-06-13 08:48] LABS: MAGNESIUM 2.2 MG/DL (1.5-2.4); PHOSPHORUS 5.7 MG/DL (2.3-4.5)
[2021-06-13] MEDS: DOBUTamine-DoBUTrex 500mg/D5W 250 ML IV SCH (14:28)
[2021-06-13] MEDS: insulin Lispro (HumaLOG) vial - multi-dose SQ SCH (19:40)
[2021-06-13] MEDS: insulin glargine (Lantus) pen - multi-dose SQ SCH (22:12)
[2021-06-14] VITALS: BP 109/70
[2021-06-14 01:00] VITALS: BP 122/71
[2021-06-14] MEDS: furosemide 40mg/4ml inj IV SCH ×2 (02:38→08:29)
[2021-06-14 03:00] VITALS: BP 125/69
[2021-06-14 05:00] VITALS: BP 120/64
[2021-06-14 06:16] LABS: BASOPHILS % (AUTO) 0.3 % (0-1); EOSINOPHILS # (AUTO) 0.3 X10'3 (0-0.9); EOSINOPHILS % (AUTO) 4.3 % (0-6); HEMATOCRIT 37.9 % (35.0-45.0); HEMOGLOBIN 11.9 g/dl (12.0-16.0); LYMPHOCYTES # (AUTO) 0.9 X10'3 (1.1-4.8); LYMPHOCYTES % (AUTO) 11.3 % (21-51); MEAN CORPUSCULAR HEMOGLOBIN 24.4 PG (27.0-31.0); MEAN CORPUSCULAR HGB CONC 31.3 g/dL (33.0-36.5); MEAN CORPUSCULAR VOLUME 77.9 FL (78-98); MEAN PLATELET VOLUME 8.4 FL (7.4-10.4); MONOCYTES # (AUTO) 0.8 X10'3 (0-0.9); MONOCYTES % (AUTO) 9.9 % (2-12); NEUTROPHILS # (AUTO) 5.7 X10'3 (1.8-7.7); NEUTROPHILS % (AUTO) 74.2 % (42-75); PLATELET COUNT 191 X10'3 (140-440); RED BLOOD COUNT 4.87 X10'6 (4.20-5.60); RED CELL DISTRIBUTION WIDTH 23.7 % (11.5-14.5); WHITE BLOOD COUNT 7.7 X10'3 (4.5-11.0)
--- NOTE | 2021-06-14 06:31 | NUR ---
Patient in room PCU 3026. I have received report from Shelly NAGY and had the opportunity to ask questions and assume patient care.
[2021-06-14 06:33] LABS: ALANINE AMINOTRANSFERASE 23 U/L (12-78); ALBUMIN 2.7 G/DL (3.4-5.0); ALBUMIN/GLOBULIN RATIO 0.6 (1.1-1.5); ALKALINE PHOSPHATASE 104 IU/L (46-116); ANION GAP 12 (8-16); ASPARTATE AMINO TRANSFERASE 15 U/L (10-37); BILIRUBIN,TOTAL 0.8 MG/DL (0.1-1.0); BLOOD UREA NITROGEN 110 MG/DL (7-18); BUN/CREATININE RATIO 30.9 (6.6-38.0); CALCIUM 8.4 MG/DL (8.5-10.1); CHLORIDE 101 MMOL/L (99-107); CREATININE 3.56 MG/DL (0.40-0.90); GLUCOSE 115 MG/DL (70-104); POTASSIUM 4.6 MMOL/L (3.5-5.1); SODIUM 139 MMOL/L (135-145); TOTAL CARBON DIOXIDE 26.2 MMOL/L (24-32); eGFR 13 ML/MIN
[2021-06-14 07:00] VITALS: BP 111/65
[2021-06-14] MEDS: amiodarone 200mg tablet PO SCH (08:28)
[2021-06-14] MEDS: levoTHYROXINE 25mcg tablet PO SCH (08:28)
[2021-06-14] MEDS: apixaban 5mg tablet PO SCH (08:28)
[2021-06-14] MEDS: potassium chloride 10mEq ER tablet PO SCH (08:28)
[2021-06-14] MEDS: ascorbic acid 500mg tablet PO SCH (08:28)
[2021-06-14] MEDS: atorvastatin 20mg tablet PO SCH (08:28)
[2021-06-14] MEDS: aspirin 81mg, enteric-coated 1 TAB TABLET.DR PO SCH (08:28)
[2021-06-14] MEDS: carVEDilol 3.125mg tablet PO SCH (08:29)
[2021-06-14] MEDS: multivitamins, therapeutics tablet PO SCH (08:29)
[2021-06-14] MEDS: docusate sod 100mg capsule PO SCH (08:29)
[2021-06-14] MEDS: folic acid 0.4mg tablet PO SCH (08:29)
[2021-06-14] MEDS: cholecalciferol (vitamin D3) 1,000 unit (25mcg) tablet PO SCH (08:34)
[2021-06-14] MEDS: insulin Lispro (HumaLOG) vial - multi-dose SQ SCH (09:49)
[2021-06-14] MEDS: DAPTOmycin inj. 500 MG in normal saline 100ml IV soln 100 ML IV SCH (12:53)
[2021-06-14 12:55] VITALS: BP 120/63
[2021-06-14] MEDS: DOBUTamine-DoBUTrex 500mg/D5W 250 ML IV SCH (12:55)
--- NOTE | 2021-06-14 13:20 | NUR ---
WOUND INFECTION EDUCATION PROVIDED BY WOUND CARE 1. Patient instructed to call their primary doctor, or go the ED immediately if any of the following symptoms occur: * Increased pain in wound * Increase in drainage from the wound * Redness in the skin surrounding the wound * Warmth in the skin surrounding the wound * Bleeding from the wound * Temperature of 101 or greater 2. If any of these occur while in the hospital tell a nurse immediately. PRESSURE ULCER EDUCATION: DEFINITION: A pressure ulcer is an area of skin that breaks down when you stay in one position too long. The constant pressure against the skin reduces the blood flow to that area and the affected tissue dies. CAUSES: "Being bedridden or in a wheelchair "Fragile skin "Having a chronic condition, such as diabetes or vascular disease "Inability to move certain parts of your body without assistance "Older age "Incontinence of urine or stool SYMPTOMS: "A reddened area that DOES NOT turn white when pressed on - this can be the beginning of a pressure ulcer "A blister, deep sore or a crater - these can be advanced pressure ulcers FIRST AID: "Relieve the pressure on this area "Keep the area clean and dry "Call your primary doctor if you see any of the above symptoms "DO NOT massage the area "DO NOT use a donut shaped or ring shaped pillow- these actually interfere with the blood flow and cause complications PREVENTION: "Check for pressure ulcers everyday "Change position at least every two hours to relieve pressure "Use items that help relieve pressure- pillows, sheepskin, foam padding, and powders. "Keep skin clean and dry "Eat healthy well balanced meals "Exercise daily IF YOU SEE ANY OF THESE SYMPTOMS WHILE IN THE HOSPITAL - TELL YOUR NURSE IMMEDIATELY. IF YOU SEE ANY OF THESE SYMPTOMS WHILE AT HOME OR HAVE ANY QUESTIONS OR CONCERNS ABOUT PRESSURE ULCERS - CALL YOUR PRIMARY DOCTOR IMMEDIATELY. Addendum: 06/14/21 at 1321 by Salina Avila LVN Amended: Links added.
--- NOTE | 2021-06-14 16:27 | NUR ---
Pt discharged to EMS for transfer to [facility]. IVs saline locked before leaving.
[2021-06-14] MEDS ORDERED: carvedilol 6.25mg tablet PO SCH (17:30)
== END 2021-06-14 16:20 | DRG 871 ==
LOC: ER 12:01 → ED HOLD 16:15 → PCU 3S 06-07 07:46
PROVIDERS: ADMIT Internal Medicine; ATTEND Internal Medicine
PROC: 5A09357 Assistance with Respiratory Ventilation, Less than 24 Consecutive Hours, Continuous Positive Airway Pressure (ICD-10-PCS; principal; 2021-06-06)
DX: A41.9 Sepsis, unspecified organism (principal); J96.02 Acute respiratory failure with hypercapnia; I50.23 Acute on chronic systolic (congestive) heart failure; J96.01 Acute respiratory failure with hypoxia; L03.115 Cellulitis of right lower limb; I13.0 Hypertensive heart and chronic kidney disease with heart failure and stage 1 through stage 4 chronic kidney disease, or unspecified chronic kidney disease; Z68.42 Body mass index [BMI] 45.0-49.9, adult; L03.116 Cellulitis of left lower limb; E44.0 Moderate protein-calorie malnutrition; N39.0 Urinary tract infection, site not specified; N17.9 Acute kidney failure, unspecified; E03.9 Hypothyroidism, unspecified; B96.20 Unspecified Escherichia coli [E. coli] as the cause of diseases classified elsewhere; E11.22 Type 2 diabetes mellitus with diabetic chronic kidney disease; I48.0 Paroxysmal atrial fibrillation; G47.33 Obstructive sleep apnea (adult) (pediatric); I95.9 Hypotension, unspecified; R00.0 Tachycardia, unspecified; N18.31 Chronic kidney disease, stage 3a; R31.9 Hematuria, unspecified; B96.4 Proteus (mirabilis) (morganii) as the cause of diseases classified elsewhere; E66.01 Morbid (severe) obesity due to excess calories; E78.5 Hyperlipidemia, unspecified; E87.5 Hyperkalemia; L27.0 Generalized skin eruption due to drugs and medicaments taken internally; Z79.890 Hormone replacement therapy; Z79.899 Other long term (current) drug therapy; Z90.710 Acquired absence of both cervix and uterus; Z88.5 Allergy status to narcotic agent; Z88.8 Allergy status to other drugs, medicaments and biological substances; Z79.82 Long term (current) use of aspirin; T36.8X5A Adverse effect of other systemic antibiotics, initial encounter; Y92.230 Patient room in hospital as the place of occurrence of the external cause
CPT/HCPCS: 36415; 36600; 71045; 76770; 80048; 80053; 81001; 82803; 82948; 83036; 83735; 83880; 84100; 84145; 84443; 84484; 85007; 85008; 85018; 85025; 85379; 87040; 87077; 87081; 87088; 87186; 93005; 93306; 94640; 94660; 94760; 96365; 96368; 96372; 96375; 97110; 97116; 97161; 97530; 97535; 99215; 99285; G0378; J0171; J0878; J1200; J1250; J1815; J1940; J2020; J2543; J2930; J3370; J3490; J7030; J7040; J7050; J7070

== ENCOUNTER 2023-05-09 22:25 | Inpatient (IN) | payer MEDICARE ==
[~2023-05-09] VITALS: Ht 162.6 cm; Wt 105.5 kg
[~2023-05-09 22:25] MED LIST changes: +ALLO200T PO; +AMI200T PO; +APIX2.5T PO; -APIX5TAB3 PO; -CARV-50 PO; +CARV3.123 PO; -CLIN-97 PO; -CYAN-51 PO; +DIPH-681 PO; -FURO-149 PO; +FURO40TA4 PO; -GLIM2TAB6 PO; -IXEK80AU2 SQ; -LACT1CAP65 PO; -LEVO50TA8 PO; +LEVO75TA7 PO; +MECO10005 PO; -NITR0.4T SL; -PANT-47 PO; +POTA-188 PO; -POTA10CA44 PO; +SACC250C9 PO; +UBID10CA4 PO
[2023-05-10] VITALS (9 sets, daily range): BP systolic 112–146; BP diastolic 30–55; PULSE 55–69; RESP 16–20; TEMP 97.5–98.1; O2SAT 93–100
[2023-05-10] MEDS: HUM PROTHROMB CPLX LANS IV ONE (00:05)
[2023-05-10] MEDS: PIGGYBACK IV ONE (00:05)
[2023-05-10 00:49] LABS: BASOPHILS # (AUTO) 0.1 X10'3 (0-0.2); BASOPHILS % (AUTO) 0.9 % (0-1); EOSINOPHILS # (AUTO) 0.2 X10'3 (0-0.9); EOSINOPHILS % (AUTO) 1.5 % (0-6); HEMATOCRIT 24.5 % (35.0-45.0); HEMOGLOBIN 7.9 g/dl (12.0-16.0); LYMPHOCYTES # (AUTO) 0.8 X10'3 (1.1-4.8); LYMPHOCYTES % (AUTO) 7.8 % (21-51); MEAN CORPUSCULAR HEMOGLOBIN 30.8 PG (27.0-31.0); MEAN CORPUSCULAR VOLUME 96.1 FL (78-98); MEAN PLATELET VOLUME 9.6 FL (7.4-10.4); MONOCYTES # (AUTO) 0.6 X10'3 (0-0.9); MONOCYTES % (AUTO) 5.5 % (2-12); NEUTROPHILS # (AUTO) 9.2 X10'3 (1.8-7.7); NEUTROPHILS % (AUTO) 84.3 % (42-75); PLATELET COUNT 216 X10'3 (140-440); RED BLOOD COUNT 2.55 X10'6 (4.20-5.60); RED CELL DISTRIBUTION WIDTH 19.3 % (11.5-14.5); WHITE BLOOD COUNT 10.9 X10'3 (4.5-11.0)
[2023-05-10 00:57] LABS: ALBUMIN 3.1 G/DL (3.4-5.0); ANION GAP 12 (8-16); BLOOD UREA NITROGEN 50 MG/DL (7-18); BUN/CREATININE RATIO 13.4 (10.0-20.0); CALCIUM 9.1 MG/DL (8.5-10.1); CHLORIDE 109 MMOL/L (99-107); CREATININE 3.74 MG/DL (0.40-0.90); GLUCOSE 182 MG/DL (70-104); POTASSIUM 3.9 MMOL/L (3.5-5.1); SODIUM 143 MMOL/L (135-145); TOTAL CARBON DIOXIDE 21.6 MMOL/L (24-32); eCRCL 12 ML/MIN; eGFR 12 ML/MIN
[2023-05-10 00:59] LABS: APTT 28 SECONDS (22-32); INR 1.1 INR; PROTHROMBIN TIME 11.5 SECONDS (9.0-12.0)
[2023-05-10] MEDS ORDERED: EPOE200015 SQ (02:44)
[2023-05-10] MEDS ORDERED: POTA-192 PO (02:44)
[2023-05-10] MEDS ORDERED: FURO-149 PO (02:44)
[2023-05-10] MEDS ORDERED: CETI10TA14 PO (02:44)
[2023-05-10 03:00] LABS: ANISOCYTOSIS 2+; PLATELET ESTIMATE NORMAL; TOTAL CELLS COUNTED 100
[2023-05-10 03:09] LABS: HYPERSEGMENTED NEUTROPHILS FEW
[2023-05-10 03:30] LABS: ELLIPTOCYTES FEW; HYPOCHROMASIA 1+; POIKILOCYTOSIS 1+
[2023-05-10] MEDS ORDERED: magnesium Cl slow-release 64mg tablet PO PRN (04:00)
[2023-05-10] MEDS ORDERED: magnesium 4gm in 100ml NS 100 ML IV PRN (04:00)
[2023-05-10] MEDS: normal saline 1000ml 1,000 ML IV SCH (04:00)
[2023-05-10] MEDS ORDERED: potassium Cl 40MEQ/1/2NS 520ml 520 ML IV PRN (04:00)
[2023-05-10] MEDS ORDERED: potassium Cl 20 mEq SR tablet PO PRN ×2 (04:00)
[2023-05-10] MEDS ORDERED: acetaminophen 325mg tablet PO PRN (04:00)
[2023-05-10] MEDS ORDERED: mag hydrox/Alum hydrox/simeth 30ml oral suspension PO PRN (04:00)
[2023-05-10] MEDS: HYDROcodone/acetaminophen 10/325mg tab PO PRN (05:11)
[2023-05-10 07:04] LABS: HEMATOCRIT 22.6 % (35.0-45.0); HEMOGLOBIN 7.2 g/dl (12.0-16.0); MEAN CORPUSCULAR HEMOGLOBIN 30.7 PG (27.0-31.0); MEAN CORPUSCULAR VOLUME 95.7 FL (78-98); MEAN PLATELET VOLUME 9.2 FL (7.4-10.4); PLATELET COUNT 192 X10'3 (140-440); RED BLOOD COUNT 2.36 X10'6 (4.20-5.60); RED CELL DISTRIBUTION WIDTH 19.1 % (11.5-14.5)
[2023-05-10] MEDS: docusate sod 100mg capsule PO SCH (08:00)
[2023-05-10 10:20] LABS: ALANINE AMINOTRANSFERASE 18 U/L (12-78); ALBUMIN/GLOBULIN RATIO 0.8 (1.1-1.5); ALKALINE PHOSPHATASE 115 IU/L (46-116); ASPARTATE AMINO TRANSFERASE 17 U/L (10-37); BILIRUBIN,DIRECT 0.1 MG/DL (0-0.3); BILIRUBIN,TOTAL 0.4 MG/DL (0.1-1.0); TOTAL PROTEIN 7.1 G/DL (6.4-8.2)
[2023-05-10 11:49] LABS: HEMOGLOBIN 7.5 g/dl (12.0-16.0); MEAN CORPUSCULAR HEMOGLOBIN 30.8 PG (27.0-31.0); MEAN CORPUSCULAR HGB CONC 32.7 g/dL (33.0-36.5); MEAN CORPUSCULAR VOLUME 94.4 FL (78-98); MEAN PLATELET VOLUME 9.2 FL (7.4-10.4); PLATELET COUNT 179 X10'3 (140-440); RED BLOOD COUNT 2.44 X10'6 (4.20-5.60); RED CELL DISTRIBUTION WIDTH 18.6 % (11.5-14.5); WHITE BLOOD COUNT 7.4 X10'3 (4.5-11.0)
[2023-05-10 12:40] LABS: BILIRUBIN,URINE NEGATIVE (Neg); CLARITY,URINE CLOUDY (Clear); COLOR,URINE YELLOW (Yellow); GLUCOSE, URINE NEGATIVE (Neg); KETONES,URINE NEGATIVE (Neg); LEUKOCYTE ESTERASE ,URINE MODERATE (Neg); NITRITES, URINE POSITIVE (Neg); OCCULT BLOOD,URINE MODERATE (Neg); PH,URINE 5.5 (4.8-8.0); PROTEIN,URINE TRACE mg/dl (Neg); UROBILINOGEN,URINE 0.2 E.U/dL (0.2-1.0)
[2023-05-10 13:18] LABS: UA COLLECTION TYPE NON-SPECIFIED
[2023-05-10 13:29] LABS: SQUAMOUS EPITHELIAL CELL,UR MANY /LPF (FEW)
[2023-05-10 13:30] LABS: BACTERIA,URINE 3+ /HPF (Neg); WBC CLUMPS,URINE MANY /HPF (NEGATIVE)
[2023-05-10 13:31] LABS: RBC,URINE 0-2 /HPF (0-2); WBC,URINE 30-50 /HPF (0-4)
[2023-05-10] MEDS: atorvastatin 20mg tablet PO SCH (19:34)
[2023-05-10] MEDS: carVEDilol 3.125mg tablet PO SCH (19:37)
[2023-05-10] MEDS: furosemide 40mg tablet PO SCH (19:38)
[2023-05-11] VITALS (12 sets, daily range): BP systolic 117–145; BP diastolic 42–68; PULSE 53–69; RESP 14–18; TEMP 97–98.4; O2SAT 93–97
[2023-05-11 00:34] LABS: MEAN CORPUSCULAR HEMOGLOBIN 31.2 PG (27.0-31.0); MEAN CORPUSCULAR HGB CONC 33.3 g/dL (33.0-36.5); MEAN CORPUSCULAR VOLUME 93.5 FL (78-98); MEAN PLATELET VOLUME 9.4 FL (7.4-10.4); PLATELET COUNT 168 X10'3 (140-440); RED BLOOD COUNT 2.26 X10'6 (4.20-5.60); RED CELL DISTRIBUTION WIDTH 18.5 % (11.5-14.5); WHITE BLOOD COUNT 6.9 X10'3 (4.5-11.0)
[2023-05-11 00:41] LABS: HEMATOCRIT 21.1 % (35.0-45.0)
[2023-05-11 07:07] LABS: BASOPHILS # (AUTO) 0.1 X10'3 (0-0.2); EOSINOPHILS # (AUTO) 0.4 X10'3 (0-0.9); EOSINOPHILS % (AUTO) 5.3 % (0-6); LYMPHOCYTES # (AUTO) 0.9 X10'3 (1.1-4.8); LYMPHOCYTES % (AUTO) 12.8 % (21-51); MEAN CORPUSCULAR HEMOGLOBIN 31.5 PG (27.0-31.0); MEAN CORPUSCULAR HGB CONC 33.4 g/dL (33.0-36.5); MEAN CORPUSCULAR VOLUME 94.3 FL (78-98); MEAN PLATELET VOLUME 8.9 FL (7.4-10.4); MONOCYTES # (AUTO) 0.5 X10'3 (0-0.9); MONOCYTES % (AUTO) 7.6 % (2-12); NEUTROPHILS # (AUTO) 4.9 X10'3 (1.8-7.7); NEUTROPHILS % (AUTO) 73.3 % (42-75); PLATELET COUNT 163 X10'3 (140-440); RED BLOOD COUNT 2.55 X10'6 (4.20-5.60); RED CELL DISTRIBUTION WIDTH 17.8 % (11.5-14.5); WHITE BLOOD COUNT 6.7 X10'3 (4.5-11.0)
[2023-05-11 07:20] LABS: PROTHROMBIN TIME 11.1 SECONDS (9.0-12.0)
[2023-05-11 07:34] LABS: ALBUMIN 2.4 G/DL (3.4-5.0); ANION GAP 12 (8-16); BLOOD UREA NITROGEN 45 MG/DL (7-18); BUN/CREATININE RATIO 13.6 (10.0-20.0); CALCIUM 8.5 MG/DL (8.5-10.1); CHLORIDE 113 MMOL/L (99-107); CREATININE 3.32 MG/DL (0.40-0.90); GLUCOSE 89 MG/DL (70-104); POTASSIUM 4.3 MMOL/L (3.5-5.1); SODIUM 147 MMOL/L (135-145); TOTAL CARBON DIOXIDE 22.3 MMOL/L (24-32); eCRCL 13 ML/MIN; eGFR 14 ML/MIN
[2023-05-11] MEDS ORDERED: non-formulary drug (Ubidecarenone (Co Q-10) 1 CAP) PO SCH (08:00)
[2023-05-11 08:12] LABS: HEMATOCRIT 23.7 % (35.0-45.0); HEMOGLOBIN 7.8 g/dl (12.0-16.0); MEAN CORPUSCULAR HEMOGLOBIN 31.3 PG (27.0-31.0); MEAN CORPUSCULAR HGB CONC 33.1 g/dL (33.0-36.5); MEAN CORPUSCULAR VOLUME 94.5 FL (78-98); MEAN PLATELET VOLUME 9.6 FL (7.4-10.4); PLATELET COUNT 165 X10'3 (140-440); RED CELL DISTRIBUTION WIDTH 17.5 % (11.5-14.5); WHITE BLOOD COUNT 7.3 X10'3 (4.5-11.0)
[2023-05-11] MEDS: folic acid 0.4mg tablet PO SCH (08:47)
[2023-05-11] MEDS: multivitamins, therapeutics tablet PO SCH (08:47)
[2023-05-11] MEDS: cholecalciferol (vitamin D3) 1,000 unit (25mcg) tablet PO SCH (08:48)
[2023-05-11] MEDS: lactobacillus rhamnosus 10,000 MMU CELLS/CAPSULE PO SCH (08:48)
[2023-05-11] MEDS: lisinopril 5mg tablet PO SCH (08:49)
[2023-05-11] MEDS: allopurinol 100mg tablet PO SCH (08:49)
[2023-05-11] MEDS: amiodarone 200mg tablet PO SCH (08:49)
[2023-05-11] MEDS: levoTHYROXINE 75mcg tablet PO SCH (08:52)
[2023-05-11] MEDS: levoFLOXACIN 750MG TABLET PO SCH (13:01)
[2023-05-12 02:19] VITALS: BP 126/48; PULSE 69; RESP 16; TEMP 97.5; O2SAT 96
[2023-05-12 06:00] VITALS: BP 127/41; PULSE 65; RESP 20; TEMP 97.9; O2SAT 97
[2023-05-12 07:12] LABS: PROTHROMBIN TIME 11.1 SECONDS (9.0-12.0)
[2023-05-12 07:16] LABS: BASOPHILS % (AUTO) 0.6 % (0-1); EOSINOPHILS # (AUTO) 0.3 X10'3 (0-0.9); EOSINOPHILS % (AUTO) 4.2 % (0-6); HEMATOCRIT 23.1 % (35.0-45.0); HEMOGLOBIN 7.8 g/dl (12.0-16.0); LYMPHOCYTES # (AUTO) 0.8 X10'3 (1.1-4.8); LYMPHOCYTES % (AUTO) 10.8 % (21-51); MEAN CORPUSCULAR HEMOGLOBIN 31.5 PG (27.0-31.0); MEAN CORPUSCULAR HGB CONC 33.6 g/dL (33.0-36.5); MEAN CORPUSCULAR VOLUME 93.7 FL (78-98); MEAN PLATELET VOLUME 9.8 FL (7.4-10.4); MONOCYTES # (AUTO) 0.6 X10'3 (0-0.9); MONOCYTES % (AUTO) 7.4 % (2-12); NEUTROPHILS # (AUTO) 5.8 X10'3 (1.8-7.7); PLATELET COUNT 171 X10'3 (140-440); RED BLOOD COUNT 2.47 X10'6 (4.20-5.60); RED CELL DISTRIBUTION WIDTH 17.8 % (11.5-14.5); WHITE BLOOD COUNT 7.5 X10'3 (4.5-11.0)
[2023-05-12 07:46] LABS: ALBUMIN 2.3 G/DL (3.4-5.0); ANION GAP 11 (8-16); BLOOD UREA NITROGEN 52 MG/DL (7-18); BUN/CREATININE RATIO 14.4 (10.0-20.0); CALCIUM 8.4 MG/DL (8.5-10.1); CHLORIDE 109 MMOL/L (99-107); CREATININE 3.62 MG/DL (0.40-0.90); GLUCOSE 105 MG/DL (70-104); POTASSIUM 4.5 MMOL/L (3.5-5.1); SODIUM 143 MMOL/L (135-145); TOTAL CARBON DIOXIDE 22.9 MMOL/L (24-32); eCRCL 12 ML/MIN; eGFR 12 ML/MIN
[2023-05-12] MEDS: levoTHYROXINE 100mcg tablet PO SCH (08:15)
[2023-05-12 11:00] VITALS: BP 142/84; PULSE 57; RESP 18; TEMP 97.9; O2SAT 94
[2023-05-12] MEDS: ondansetron/PF 4mg/2ml inj IV PRN (12:10)
[2023-05-12] MEDS ORDERED: proCHLORperazine 10 MG/2 ml inj IV PRN (14:30)
[2023-05-12 15:00] VITALS: BP 127/48; PULSE 65; RESP 16; TEMP 98.7; O2SAT 97
[2023-05-12 18:00] VITALS: BP 117/68; PULSE 63; RESP 16; TEMP 98.4; O2SAT 97
[2023-05-12 19:50] VITALS: BP 133/55
[2023-05-13 06:00] VITALS: BP 119/43; PULSE 70; RESP 15; TEMP 97.6; O2SAT 97
[2023-05-13 08:00] VITALS: RESP 15; O2SAT 97
[2023-05-13] MEDS: allopurinol 100mg tablet PO SCH (08:38)
[2023-05-13 08:51] LABS: BASOPHILS % (AUTO) 0.5 % (0-1); EOSINOPHILS # (AUTO) 0.2 X10'3 (0-0.9); EOSINOPHILS % (AUTO) 2.9 % (0-6); HEMATOCRIT 24.1 % (35.0-45.0); HEMOGLOBIN 7.9 g/dl (12.0-16.0); LYMPHOCYTES # (AUTO) 0.8 X10'3 (1.1-4.8); LYMPHOCYTES % (AUTO) 9.6 % (21-51); MEAN CORPUSCULAR HEMOGLOBIN 31.3 PG (27.0-31.0); MEAN CORPUSCULAR HGB CONC 32.9 g/dL (33.0-36.5); MEAN CORPUSCULAR VOLUME 95.3 FL (78-98); MEAN PLATELET VOLUME 10.1 FL (7.4-10.4); MONOCYTES # (AUTO) 0.6 X10'3 (0-0.9); MONOCYTES % (AUTO) 7.4 % (2-12); NEUTROPHILS # (AUTO) 6.4 X10'3 (1.8-7.7); NEUTROPHILS % (AUTO) 79.6 % (42-75); PLATELET COUNT 180 X10'3 (140-440); RED BLOOD COUNT 2.53 X10'6 (4.20-5.60); RED CELL DISTRIBUTION WIDTH 18.1 % (11.5-14.5)
[2023-05-13 08:58] LABS: PROTHROMBIN TIME 10.9 SECONDS (9.0-12.0)
[2023-05-13 09:04] LABS: ALBUMIN 2.3 G/DL (3.4-5.0); ANION GAP 8 (8-16); BLOOD UREA NITROGEN 57 MG/DL (7-18); BUN/CREATININE RATIO 15.4 (10.0-20.0); CALCIUM 8.3 MG/DL (8.5-10.1); CHLORIDE 105 MMOL/L (99-107); CREATININE 3.71 MG/DL (0.40-0.90); GLUCOSE 118 MG/DL (70-104); POTASSIUM 4.6 MMOL/L (3.5-5.1); SODIUM 139 MMOL/L (135-145); TOTAL CARBON DIOXIDE 26.2 MMOL/L (24-32); eCRCL 12 ML/MIN; eGFR 12 ML/MIN
[2023-05-13 11:00] VITALS: BP 108/41; PULSE 63; RESP 16; TEMP 98.4; O2SAT 99
[2023-05-13] MEDS: levoFLOXACIN 500mg tablet PO SCH (11:00)
[2023-05-13 15:00] VITALS: BP 117/40; PULSE 63; RESP 64; TEMP 97.1; O2SAT 92
[2023-05-14] VITALS (13 sets, daily range): BP systolic 91–116; BP diastolic 37–56; PULSE 47–75; RESP 14–25; TEMP 98.4–99.1; O2SAT 87–100
[2023-05-14 07:47] LABS: BASOPHILS # (AUTO) 0.1 X10'3 (0-0.2); BASOPHILS % (AUTO) 0.6 % (0-1); EOSINOPHILS # (AUTO) 0.2 X10'3 (0-0.9); EOSINOPHILS % (AUTO) 2.6 % (0-6); HEMATOCRIT 23.8 % (35.0-45.0); LYMPHOCYTES # (AUTO) 0.9 X10'3 (1.1-4.8); LYMPHOCYTES % (AUTO) 10.3 % (21-51); MEAN CORPUSCULAR HEMOGLOBIN 31.6 PG (27.0-31.0); MEAN CORPUSCULAR HGB CONC 33.4 g/dL (33.0-36.5); MEAN CORPUSCULAR VOLUME 94.4 FL (78-98); MEAN PLATELET VOLUME 9.7 FL (7.4-10.4); MONOCYTES # (AUTO) 0.6 X10'3 (0-0.9); MONOCYTES % (AUTO) 7.5 % (2-12); NEUTROPHILS # (AUTO) 6.5 X10'3 (1.8-7.7); PLATELET COUNT 195 X10'3 (140-440); RED BLOOD COUNT 2.52 X10'6 (4.20-5.60); RED CELL DISTRIBUTION WIDTH 17.4 % (11.5-14.5); WHITE BLOOD COUNT 8.3 X10'3 (4.5-11.0)
[2023-05-14 08:12] LABS: ALBUMIN 2.4 G/DL (3.4-5.0); ANION GAP 10 (8-16); BLOOD UREA NITROGEN 69 MG/DL (7-18); BUN/CREATININE RATIO 16.3 (10.0-20.0); CALCIUM 8.2 MG/DL (8.5-10.1); CHLORIDE 101 MMOL/L (99-107); CREATININE 4.24 MG/DL (0.40-0.90); GLUCOSE 111 MG/DL (70-104); POTASSIUM 4.7 MMOL/L (3.5-5.1); SODIUM 136 MMOL/L (135-145); TOTAL CARBON DIOXIDE 25.2 MMOL/L (24-32); eCRCL 11 ML/MIN; eGFR 10 ML/MIN
[2023-05-14] MEDS ORDERED: proCHLORperazine 10 MG/2 ml inj IV PRN (18:30)
[2023-05-14] MEDS ORDERED: ondansetron/PF 4mg/2ml inj IV PRN (18:30)
[2023-05-14] MEDS ORDERED: HYDROmorphone/PF 0.2 MG/ML SYRINGE IV PRN (18:30)
[2023-05-14] MEDS ORDERED: fentaNYL/PF 50MCG/1 ML 2ML syringe IV PRN ×2 (18:30)
[2023-05-14] MEDS: ringers solution, lacted 1,000 ML IV SCH (18:30)
[2023-05-14] MEDS ORDERED: fentaNYL /PF 50mcg/ml 5ml ampule ONE (18:56)
[2023-05-14] MEDS ORDERED: midazolam 1 mg/ML 2ml injection ONE (18:56)
[2023-05-14] MEDS ORDERED: clindamycin-Cleocin 900mg/D5W 50 ML IV ONE (19:20)
[2023-05-14] MEDS ORDERED: dexamethasone sod phosphate 4mg/ml inj. ONE (19:25)
[2023-05-14] MEDS ORDERED: ondansetron/PF 4mg/2ml inj ONE (19:25)
[2023-05-14] MEDS ORDERED: LIDOcaine 2% (20mg/ml) 5ml vial ONE (19:25)
[2023-05-14] MEDS ORDERED: rocuronium 10mg/ml inj IV ONE (19:25)
[2023-05-14] MEDS ORDERED: ePHEDrine 50MG/ML INJ. ONE (19:25)
[2023-05-14] MEDS ORDERED: propofol inj 20 ML IV ONE (19:25)
[2023-05-14] MEDS ORDERED: 0.9 % SODIUM CHLORIDE 10 ML VIAL ONE (19:25)
[2023-05-14] MEDS ORDERED: albumin (Human) 5% 250ml 250 ML IV ONE (19:39)
[2023-05-14] MEDS ORDERED: glycopyrrolate 0.2mg/ml inj ONE (19:39)
[2023-05-14] MEDS ORDERED: neostigmine methylsulfate 1 MG/ML 10ml vial ONE (19:39)
[2023-05-14] MEDS ORDERED: sugammadex 200mg/2ml injection IV ONE (19:48)
[2023-05-14] MEDS ORDERED: furosemide 20MG tablet PO SCH (20:00)
[2023-05-14 20:24] LABS: ISTAT CREATININE 4.8 mg/dL (0.6-1.1); ISTAT HGB 7.8 g/dl (12.0-16.0); ISTAT IONIZED CALCIUM 1.12 mmol/L (1.03-1.32); ISTAT K 4.8 mmol/L (3.5-5.1); POC BUN/CREATININE RATIO 17.7 (6.6-38.0)
[2023-05-14] MEDS: HYDROmorphone/PF 0.2 MG/ML SYRINGE IV PRN (20:29)
[2023-05-14] MEDS: acetaminophen 1,000mg/100ml IV 100 ML IV ONE (21:03)
[2023-05-14 21:34] LABS: BASOPHILS # (AUTO) 0.1 X10'3 (0-0.2); BASOPHILS % (AUTO) 1.5 % (0-1); EOSINOPHILS # (AUTO) 0.1 X10'3 (0-0.9); EOSINOPHILS % (AUTO) 1.6 % (0-6); LYMPHOCYTES # (AUTO) 0.5 X10'3 (1.1-4.8); LYMPHOCYTES % (AUTO) 5.3 % (21-51); MEAN CORPUSCULAR HEMOGLOBIN 31.3 PG (27.0-31.0); MEAN CORPUSCULAR VOLUME 97.9 FL (78-98); MEAN PLATELET VOLUME 9.9 FL (7.4-10.4); MONOCYTES # (AUTO) 0.3 X10'3 (0-0.9); NEUTROPHILS # (AUTO) 7.9 X10'3 (1.8-7.7); NEUTROPHILS % (AUTO) 88.6 % (42-75); PLATELET COUNT 172 X10'3 (140-440); RED CELL DISTRIBUTION WIDTH 17.6 % (11.5-14.5); WHITE BLOOD COUNT 8.9 X10'3 (4.5-11.0)
[2023-05-14 21:39] LABS: HEMATOCRIT 21.5 % (35.0-45.0); HEMOGLOBIN 6.9 g/dl (12.0-16.0)
[2023-05-15] VITALS (11 sets, daily range): BP systolic 108–142; BP diastolic 42–57; PULSE 58–70; RESP 12–18; TEMP 97.3–98.1; O2SAT 95–100
[2023-05-15] MEDS: magnesium hydroxide 30ml (MOM) UD suspension PO PRN (01:43)
[2023-05-15 08:17] LABS: PROTHROMBIN TIME 10.7 SECONDS (9.0-12.0)
[2023-05-15 08:18] LABS: ALBUMIN 2.6 G/DL (3.4-5.0); ANION GAP 14 (8-16); BLOOD UREA NITROGEN 76 MG/DL (7-18); CHLORIDE 99 MMOL/L (99-107); CREATININE 4.22 MG/DL (0.40-0.90); GLUCOSE 181 MG/DL (70-104); POTASSIUM 4.8 MMOL/L (3.5-5.1); SODIUM 136 MMOL/L (135-145); TOTAL CARBON DIOXIDE 23.4 MMOL/L (24-32); eCRCL 11 ML/MIN; eGFR 10 ML/MIN
[2023-05-15 09:27] LABS: BASOPHILS % (AUTO) 0.1 % (0-1); EOSINOPHILS % (AUTO) 0 % (0-6); HEMATOCRIT 28.3 % (35.0-45.0); HEMOGLOBIN 9.4 g/dl (12.0-16.0); LYMPHOCYTES # (AUTO) 0.2 X10'3 (1.1-4.8); LYMPHOCYTES % (AUTO) 1.4 % (21-51); MEAN CORPUSCULAR HEMOGLOBIN 30.1 PG (27.0-31.0); MEAN CORPUSCULAR HGB CONC 33.1 g/dL (33.0-36.5); MEAN CORPUSCULAR VOLUME 90.9 FL (78-98); MONOCYTES # (AUTO) 0.3 X10'3 (0-0.9); NEUTROPHILS # (AUTO) 15.2 X10'3 (1.8-7.7); NEUTROPHILS % (AUTO) 96.5 % (42-75); PLATELET COUNT 202 X10'3 (140-440); RED BLOOD COUNT 3.12 X10'6 (4.20-5.60); WHITE BLOOD COUNT 15.7 X10'3 (4.5-11.0)
[2023-05-15] MEDS: NUT.TX.IMP.RENAL FXN,LAC-REDUC (Nepro) 237 ML VANILLA PO SCH (17:30)
[2023-05-16] VITALS (7 sets, daily range): BP systolic 85–113; BP diastolic 28–57; PULSE 52–97; RESP 14–18; TEMP 97–97.8; O2SAT 92–100
[2023-05-16] MEDS: bisacodyl 10mg suppository rectal RC STA (11:08)
[2023-05-16] MEDS: normal saline 1000ml 1,000 ML IVB ONE (12:22)
[2023-05-16 12:51] LABS: BASOPHILS % (AUTO) 0.2 % (0-1); EOSINOPHILS # (AUTO) 0.4 X10'3 (0-0.9); EOSINOPHILS % (AUTO) 1.8 % (0-6); HEMATOCRIT 23.2 % (35.0-45.0); HEMOGLOBIN 7.6 g/dl (12.0-16.0); LYMPHOCYTES # (AUTO) 0.3 X10'3 (1.1-4.8); LYMPHOCYTES % (AUTO) 1.3 % (21-51); MEAN CORPUSCULAR HEMOGLOBIN 29.7 PG (27.0-31.0); MEAN CORPUSCULAR HGB CONC 32.6 g/dL (33.0-36.5); MEAN CORPUSCULAR VOLUME 91.1 FL (78-98); MEAN PLATELET VOLUME 10.7 FL (7.4-10.4); MONOCYTES # (AUTO) 0.5 X10'3 (0-0.9); MONOCYTES % (AUTO) 2.6 % (2-12); NEUTROPHILS # (AUTO) 19.4 X10'3 (1.8-7.7); NEUTROPHILS % (AUTO) 94.1 % (42-75); PLATELET COUNT 190 X10'3 (140-440); RED BLOOD COUNT 2.55 X10'6 (4.20-5.60); WHITE BLOOD COUNT 20.6 X10'3 (4.5-11.0)
[2023-05-16 13:01] LABS: ALBUMIN 2.1 G/DL (3.4-5.0); ANION GAP 10 (8-16); BLOOD UREA NITROGEN 95 MG/DL (7-18); BUN/CREATININE RATIO 20.7 (10.0-20.0); CALCIUM 8.1 MG/DL (8.5-10.1); CHLORIDE 97 MMOL/L (99-107); GLUCOSE 195 MG/DL (70-104); POTASSIUM 4.8 MMOL/L (3.5-5.1); SODIUM 132 MMOL/L (135-145); TOTAL CARBON DIOXIDE 24.9 MMOL/L (24-32); eCRCL 10 ML/MIN; eGFR 9 ML/MIN
[2023-05-16 13:18] LABS: ANISOCYTOSIS 2+; PLATELET ESTIMATE NORMAL
[2023-05-16 13:19] LABS: BURR CELLS FEW; ELLIPTOCYTES FEW; SCHISTOCYTES FEW; STOMATOCYTES FEW
[2023-05-16] MEDS: EPOETIN ALFA-EPBX 20,000 UNIT/ML 1 ML MDV SQ ONE (14:22)
[2023-05-16] MEDS: normal saline 1000ml 1,000 ML IV SCH (14:45)
[2023-05-16 15:00] LABS: FERRITIN 860 NG/ML (8-252)
[2023-05-16 15:19] LABS: % IRON SATURATION 9 % (11-46); IRON 14 UG/DL (49-151); TOTAL IRON BINDING CAPACITY 150 UG/DL (259-388)
[2023-05-16] MEDS ORDERED: clindamycin 600mg/D5W 50ml 50 ML IV SCH (16:00)
[2023-05-16] MEDS ORDERED: insulin Lispro (HumaLOG) vial - multi-dose SQ SCH (18:40)
[2023-05-16] MEDS ORDERED: glucagon, human recombinant 1mg kit SUBCUT PRN (18:40)
[2023-05-16] MEDS: MESSAGE TO PHARMACY PO ONE (18:40)
[2023-05-16] MEDS ORDERED: DEXTROSE 15 GM of carb/4 tabs (each vial/BOTTLE has 4 tablets) PO PRN ×2 (18:40)
[2023-05-16] MEDS ORDERED: dextrose 50%-water 50ml dispensing syringe IV PRN ×2 (18:40)
[2023-05-16] MEDS: lactulose 20gm/30ml cup PO SCH (20:11)
[2023-05-16] MEDS: polyethylene glycol 3350 17gm powd pack PO SCH (20:11)
[2023-05-16] MEDS: clindamycin 600mg/D5W 50ml 50 ML IV SCH (20:12)
[2023-05-16] MEDS: insulin glargine (Lantus) pen - multi-dose SQ SCH (21:00)
[2023-05-17] VITALS (46 sets, daily range): BP systolic 67–149; BP diastolic 24–56; PULSE 48–66; RESP 14–26; TEMP 97–98; O2SAT 92–100
[2023-05-17 07:27] LABS: BASOPHILS # (AUTO) 0.1 X10'3 (0-0.2); BASOPHILS % (AUTO) 0.3 % (0-1); EOSINOPHILS # (AUTO) 0.3 X10'3 (0-0.9); EOSINOPHILS % (AUTO) 1.7 % (0-6); HEMOGLOBIN 7.1 g/dl (12.0-16.0); LYMPHOCYTES # (AUTO) 0.4 X10'3 (1.1-4.8); LYMPHOCYTES % (AUTO) 2.1 % (21-51); MEAN CORPUSCULAR HEMOGLOBIN 29.9 PG (27.0-31.0); MEAN CORPUSCULAR HGB CONC 32.6 g/dL (33.0-36.5); MEAN CORPUSCULAR VOLUME 91.6 FL (78-98); MEAN PLATELET VOLUME 10.5 FL (7.4-10.4); MONOCYTES # (AUTO) 0.7 X10'3 (0-0.9); MONOCYTES % (AUTO) 3.4 % (2-12); NEUTROPHILS # (AUTO) 18.5 X10'3 (1.8-7.7); NEUTROPHILS % (AUTO) 92.5 % (42-75); PLATELET COUNT 215 X10'3 (140-440); RED BLOOD COUNT 2.37 X10'6 (4.20-5.60); WHITE BLOOD COUNT 19.9 X10'3 (4.5-11.0)
[2023-05-17] MEDS: normal saline 1000ml 1,000 ML IV ONE (07:30)
[2023-05-17 07:31] LABS: HEMATOCRIT 21.7 % (35.0-45.0)
[2023-05-17 07:37] LABS: ABG BASE EXCESS -4.8 mmol/L (-2.0-2.0); ABG HCO3 20.3 mmol/L (22.0-26.0); ABG OXYGEN SATURATION 98.2 % (94-97); ABG PCO2 (T) 37.2 mmHg (32.0-45.0); ABG PH (T) 7.355 (7.350-7.450); ABG PO2 (T) 128.6 mmHg (75.0-100.0); FCOHb 0.8 % (0.0-3.9); FHHb 1.8 % (0.0-5.0); FLOW 5 L/min; FMetHb 0.3 % (0.0-1.5); FO2Hb 97.1 % (94-97); MODE NASAL CANNULA; TOTAL HEMOGLOBIN 7.7 G/dl (12.0-16.0)
[2023-05-17 07:44] LABS: ALANINE AMINOTRANSFERASE 362 U/L (12-78); ALBUMIN/GLOBULIN RATIO 0.6 (1.1-1.5); ALKALINE PHOSPHATASE 520 IU/L (46-116); ANION GAP 11 (8-16); ASPARTATE AMINO TRANSFERASE 331 U/L (10-37); BILIRUBIN,TOTAL 0.8 MG/DL (0.1-1.0); BLOOD UREA NITROGEN 97 MG/DL (7-18); BUN/CREATININE RATIO 19.8 (10.0-20.0); CALCIUM 8.3 MG/DL (8.5-10.1); CHLORIDE 97 MMOL/L (99-107); CREATININE 4.91 MG/DL (0.40-0.90); GLUCOSE 187 MG/DL (70-104); MAGNESIUM 3.1 MG/DL (1.5-2.4); PHOSPHORUS 5.5 MG/DL (2.3-4.5); POTASSIUM 5.2 MMOL/L (3.5-5.1); SODIUM 131 MMOL/L (135-145); TOTAL CARBON DIOXIDE 23.1 MMOL/L (24-32); TOTAL PROTEIN 5.4 G/DL (6.4-8.2); eCRCL 9 ML/MIN; eGFR 9 ML/MIN
[2023-05-17] MEDS ORDERED: MEROPENEM 1GM/NS 100ML IVPB 100 ML IV SCH (09:25)
[2023-05-17 10:03] LABS: PROTHROMBIN TIME 10.5 SECONDS (9.0-12.0)
[2023-05-17] MEDS ORDERED: hydrALAZINE 20mg/ml inj. IV PRN (12:40)
[2023-05-17] MEDS ORDERED: enalaprilat dihydrate 2.5mg/2ml vial IV PRN (12:40)
[2023-05-17] MEDS: ringers solution, lacted 1,000 ML IV SCH (12:40)
[2023-05-17] MEDS ORDERED: fentaNYL/PF 50MCG/1 ML 2ML syringe IV PRN ×2 (12:40)
[2023-05-17] MEDS ORDERED: ondansetron/PF 4mg/2ml inj IV PRN (12:40)
[2023-05-17] MEDS ORDERED: albumin (Human) 5% 250ml 250 ML IV ONE ×2 (13:40→13:58)
[2023-05-17] MEDS ORDERED: etomidate 2mg/ml inj. ONE (13:40)
[2023-05-17] MEDS ORDERED: midazolam 1 mg/ML 2ml injection ONE (13:40)
[2023-05-17] MEDS ORDERED: fentaNYL/PF 50MCG/1 ML 2ML syringe ONE (13:40)
[2023-05-17] MEDS: MEROPENEM 1GM/NS 100ML IVPB 100 ML IV SCH (13:50)
[2023-05-17] MEDS: flumazenil 0.1 mg/ml inj. 10mL vial IV ONE (14:56)
[2023-05-17] MEDS: albumin (Human) 5% 250ml 250 ML IV ONE ×2 (15:00→15:58)
[2023-05-17] MEDS: methylPREDNISolone sod succ 125mg/2ml vial IV ONE (15:35)
[2023-05-17 16:30] LABS: BASOPHILS % (AUTO) 0.1 % (0-1); EOSINOPHILS # (AUTO) 0.1 X10'3 (0-0.9); EOSINOPHILS % (AUTO) 0.6 % (0-6); HEMOGLOBIN 7.1 g/dl (12.0-16.0); LYMPHOCYTES # (AUTO) 0.5 X10'3 (1.1-4.8); LYMPHOCYTES % (AUTO) 2.9 % (21-51); MEAN CORPUSCULAR HEMOGLOBIN 29.4 PG (27.0-31.0); MEAN CORPUSCULAR HGB CONC 32.2 g/dL (33.0-36.5); MEAN CORPUSCULAR VOLUME 91.2 FL (78-98); MEAN PLATELET VOLUME 10.2 FL (7.4-10.4); MONOCYTES # (AUTO) 0.5 X10'3 (0-0.9); MONOCYTES % (AUTO) 3.3 % (2-12); NEUTROPHILS # (AUTO) 15.3 X10'3 (1.8-7.7); NEUTROPHILS % (AUTO) 93.1 % (42-75); PLATELET COUNT 181 X10'3 (140-440); RED BLOOD COUNT 2.41 X10'6 (4.20-5.60); RED CELL DISTRIBUTION WIDTH 19.2 % (11.5-14.5); WHITE BLOOD COUNT 16.4 X10'3 (4.5-11.0)
[2023-05-17 16:59] LABS: FERRITIN 476 NG/ML (8-252)
[2023-05-17 17:11] LABS: % IRON SATURATION 39 % (11-46); IRON 54 UG/DL (49-151); TOTAL IRON BINDING CAPACITY 139 UG/DL (259-388)
[2023-05-17] MEDS: atropine 0.1mg/ml 10ml syringe ONE (18:14)
[2023-05-17] MEDS: iron sucrose complex injection 200 MG in normal saline 100ml IV soln 100 ML IV SCH (18:59)
[2023-05-17] MEDS: NORepinephrine 8mg/ 250ml NS 250 ML IV ONE (19:01)
[2023-05-17 20:49] LABS: BASOPHILS % (AUTO) 0.1 % (0-1); EOSINOPHILS % (AUTO) 0.1 % (0-6); HEMATOCRIT 27.8 % (35.0-45.0); HEMOGLOBIN 8.9 g/dl (12.0-16.0); LYMPHOCYTES # (AUTO) 0.3 X10'3 (1.1-4.8); LYMPHOCYTES % (AUTO) 1.4 % (21-51); MEAN CORPUSCULAR HEMOGLOBIN 29.1 PG (27.0-31.0); MEAN CORPUSCULAR HGB CONC 32.1 g/dL (33.0-36.5); MEAN CORPUSCULAR VOLUME 90.6 FL (78-98); MEAN PLATELET VOLUME 10.4 FL (7.4-10.4); MONOCYTES # (AUTO) 0.3 X10'3 (0-0.9); MONOCYTES % (AUTO) 1.4 % (2-12); NEUTROPHILS # (AUTO) 20.5 X10'3 (1.8-7.7); PLATELET COUNT 196 X10'3 (140-440); RED BLOOD COUNT 3.07 X10'6 (4.20-5.60); RED CELL DISTRIBUTION WIDTH 18.6 % (11.5-14.5); WHITE BLOOD COUNT 21.1 X10'3 (4.5-11.0)
[2023-05-17 20:58] LABS: APTT 34 SECONDS (22-32); PROTHROMBIN TIME 10.7 SECONDS (9.0-12.0)
[2023-05-17 21:00] LABS: ALANINE AMINOTRANSFERASE 308 U/L (12-78); ALBUMIN 2.7 G/DL (3.4-5.0); ALBUMIN/GLOBULIN RATIO 0.9 (1.1-1.5); ALKALINE PHOSPHATASE 534 IU/L (46-116); ANION GAP 11 (8-16); ASPARTATE AMINO TRANSFERASE 219 U/L (10-37); BILIRUBIN,TOTAL 2.5 MG/DL (0.1-1.0); BLOOD UREA NITROGEN 94 MG/DL (7-18); BUN/CREATININE RATIO 19.2 (10.0-20.0); CALCIUM 7.8 MG/DL (8.5-10.1); CHLORIDE 99 MMOL/L (99-107); CREATININE 4.89 MG/DL (0.40-0.90); GLUCOSE 228 MG/DL (70-104); MAGNESIUM 3.1 MG/DL (1.5-2.4); PHOSPHORUS 6.4 MG/DL (2.3-4.5); POTASSIUM 5.6 MMOL/L (3.5-5.1); SODIUM 132 MMOL/L (135-145); TOTAL CARBON DIOXIDE 22.2 MMOL/L (24-32); TOTAL PROTEIN 5.8 G/DL (6.4-8.2); eCRCL 9 ML/MIN; eGFR 9 ML/MIN
[2023-05-18] VITALS (21 sets, daily range): BP systolic 104–140; BP diastolic 38–86; PULSE 42–83; RESP 14–21; TEMP 97.5–97.6; O2SAT 91–97
[2023-05-18 03:19] LABS: BASOPHILS % (AUTO) 0.1 % (0-1); EOSINOPHILS % (AUTO) 0 % (0-6); HEMATOCRIT 26.5 % (35.0-45.0); HEMOGLOBIN 8.6 g/dl (12.0-16.0); LYMPHOCYTES # (AUTO) 0.2 X10'3 (1.1-4.8); LYMPHOCYTES % (AUTO) 1.2 % (21-51); MEAN CORPUSCULAR HGB CONC 32.5 g/dL (33.0-36.5); MEAN PLATELET VOLUME 9.8 FL (7.4-10.4); MONOCYTES # (AUTO) 0.1 X10'3 (0-0.9); MONOCYTES % (AUTO) 0.6 % (2-12); NEUTROPHILS # (AUTO) 19.7 X10'3 (1.8-7.7); NEUTROPHILS % (AUTO) 98.1 % (42-75); PLATELET COUNT 194 X10'3 (140-440); RED BLOOD COUNT 2.98 X10'6 (4.20-5.60); RED CELL DISTRIBUTION WIDTH 19.1 % (11.5-14.5); WHITE BLOOD COUNT 20.1 X10'3 (4.5-11.0)
[2023-05-18 03:29] LABS: RHEUM FACTOR QUAL REFLEX TITER NEGATIVE (Neg)
[2023-05-18 03:32] LABS: ALANINE AMINOTRANSFERASE 301 U/L (12-78); ALBUMIN 2.5 G/DL (3.4-5.0); ALBUMIN/GLOBULIN RATIO 0.8 (1.1-1.5); ALKALINE PHOSPHATASE 540 IU/L (46-116); ANION GAP 13 (8-16); ASPARTATE AMINO TRANSFERASE 179 U/L (10-37); BILIRUBIN,TOTAL 1.9 MG/DL (0.1-1.0); BLOOD UREA NITROGEN 100 MG/DL (7-18); BUN/CREATININE RATIO 20.2 (10.0-20.0); CALCIUM 7.7 MG/DL (8.5-10.1); CHLORIDE 100 MMOL/L (99-107); CREATININE 4.94 MG/DL (0.40-0.90); GLUCOSE 224 MG/DL (70-104); MAGNESIUM 3.2 MG/DL (1.5-2.4); PHOSPHORUS 6.7 MG/DL (2.3-4.5); POTASSIUM 5.5 MMOL/L (3.5-5.1); SODIUM 133 MMOL/L (135-145); TOTAL CARBON DIOXIDE 20.1 MMOL/L (24-32); TOTAL PROTEIN 5.8 G/DL (6.4-8.2); eCRCL 9 ML/MIN; eGFR 9 ML/MIN
[2023-05-18] MEDS: INSULIN LISPRO 100 UNIT/ML INSULN.PEN MULTI-DOSE SQ SCH (09:32)
[2023-05-18] MEDS ORDERED: CALC0.2536 PO (16:34)
[2023-05-18] MEDS ORDERED: SEVE0.8P PO (16:34)
[2023-05-19] VITALS (11 sets, daily range): BP systolic 92–107; BP diastolic 32–58; PULSE 45–69; RESP 11–20; TEMP 96.1–98.3; O2SAT 94–100
[2023-05-19 08:49] LABS: ISTAT K 5.2 mmol/L (3.5-5.1)
[2023-05-19 08:50] LABS: ISTAT CREATININE 5.6 mg/dL (0.6-1.1)
[2023-05-19 08:51] LABS: ISTAT HGB 7.8 g/dl (12.0-16.0); ISTAT IONIZED CALCIUM 1.15 mmol/L (1.03-1.32)
[2023-05-19 09:40] LABS: BASOPHILS # (AUTO) 0.1 X10'3 (0-0.2); EOSINOPHILS # (AUTO) 0.2 X10'3 (0-0.9); MEAN CORPUSCULAR HEMOGLOBIN 28.8 PG (27.0-31.0); RED CELL DISTRIBUTION WIDTH 19.2 % (11.5-14.5)
[2023-05-19 09:42] LABS: BASOPHILS % (AUTO) 0.3 % (0-1); EOSINOPHILS % (AUTO) 0.9 % (0-6); HEMATOCRIT 26.5 % (35.0-45.0); HEMOGLOBIN 8.5 g/dl (12.0-16.0); LYMPHOCYTES # (AUTO) 0.4 X10'3 (1.1-4.8); LYMPHOCYTES % (AUTO) 1.6 % (21-51); MEAN CORPUSCULAR VOLUME 90.1 FL (78-98); MEAN PLATELET VOLUME 10.2 FL (7.4-10.4); MONOCYTES # (AUTO) 0.9 X10'3 (0-0.9); MONOCYTES % (AUTO) 3.6 % (2-12); NEUTROPHILS # (AUTO) 23.4 X10'3 (1.8-7.7); NEUTROPHILS % (AUTO) 93.6 % (42-75); PLATELET COUNT 217 X10'3 (140-440); RED BLOOD COUNT 2.94 X10'6 (4.20-5.60)
[2023-05-19 09:45] LABS: WHITE BLOOD COUNT 25.1 X10'3 (4.5-11.0)
[2023-05-19 09:55] LABS: ALANINE AMINOTRANSFERASE 423 U/L (12-78); ALBUMIN 2.1 G/DL (3.4-5.0); ALBUMIN/GLOBULIN RATIO 0.7 (1.1-1.5); ALKALINE PHOSPHATASE 544 IU/L (46-116); ANION GAP 15 (8-16); ASPARTATE AMINO TRANSFERASE 279 U/L (10-37); BILIRUBIN,TOTAL 0.9 MG/DL (0.1-1.0); BLOOD UREA NITROGEN 96 MG/DL (7-18); BUN/CREATININE RATIO 19.8 (10.0-20.0); CALCIUM 7.9 MG/DL (8.5-10.1); CHLORIDE 101 MMOL/L (99-107); CREATININE 4.86 MG/DL (0.40-0.90); GLUCOSE 188 MG/DL (70-104); MAGNESIUM 3.3 MG/DL (1.5-2.4); PHOSPHORUS 6.6 MG/DL (2.3-4.5); POTASSIUM 4.9 MMOL/L (3.5-5.1); SODIUM 133 MMOL/L (135-145); TOTAL CARBON DIOXIDE 17.2 MMOL/L (24-32); TOTAL PROTEIN 5.2 G/DL (6.4-8.2); eCRCL 9 ML/MIN; eGFR 9 ML/MIN
[2023-05-19 10:03] LABS: PLATELET ESTIMATE NORMAL; TOTAL CELLS COUNTED 100
[2023-05-19 10:04] LABS: ANISOCYTOSIS 2+; ELLIPTOCYTES FEW
[2023-05-19 10:05] LABS: POLYCHROMASIA FEW
[2023-05-19 10:06] LABS: SCHISTOCYTES FEW
[2023-05-19] MEDS: sodium bicarbonate 1meq/ml inj 150 ML in dextrose 5%-water 1,000 ML IV SCH (17:20)
[2023-05-20] VITALS (27 sets, daily range): BP systolic 95–124; BP diastolic 34–61; PULSE 53–76; RESP 6–23; TEMP 97.2–97.7; O2SAT 87–100
[2023-05-20 08:00] LABS: BASOPHILS # (AUTO) 0.1 X10'3 (0-0.2)
[2023-05-20 08:02] LABS: BASOPHILS % (AUTO) 0.2 % (0-1); EOSINOPHILS # (AUTO) 0.6 X10'3 (0-0.9); EOSINOPHILS % (AUTO) 2.8 % (0-6); HEMATOCRIT 25.7 % (35.0-45.0); HEMOGLOBIN 8.6 g/dl (12.0-16.0); LYMPHOCYTES # (AUTO) 0.4 X10'3 (1.1-4.8); LYMPHOCYTES % (AUTO) 1.7 % (21-51); MEAN CORPUSCULAR HEMOGLOBIN 29.9 PG (27.0-31.0); MEAN CORPUSCULAR HGB CONC 33.4 g/dL (33.0-36.5); MEAN CORPUSCULAR VOLUME 89.5 FL (78-98); MEAN PLATELET VOLUME 9.9 FL (7.4-10.4); MONOCYTES # (AUTO) 1.1 X10'3 (0-0.9); NEUTROPHILS # (AUTO) 19.7 X10'3 (1.8-7.7); NEUTROPHILS % (AUTO) 90.3 % (42-75); PLATELET COUNT 206 X10'3 (140-440); RED BLOOD COUNT 2.87 X10'6 (4.20-5.60); RED CELL DISTRIBUTION WIDTH 18.9 % (11.5-14.5); WHITE BLOOD COUNT 21.9 X10'3 (4.5-11.0)
[2023-05-20 08:33] LABS: ANISOCYTOSIS 2+; NUCLEATED RED BLOOD CELLS 2 /100WBC (0-0); PLATELET ESTIMATE NORMAL; TOTAL CELLS COUNTED 100
[2023-05-20 08:34] LABS: BURR CELLS FEW; ELLIPTOCYTES FEW; LARGE PLATELETS FEW; TEAR DROP CELLS FEW
[2023-05-20 08:46] LABS: ALANINE AMINOTRANSFERASE 381 U/L (12-78); ALBUMIN/GLOBULIN RATIO 0.6 (1.1-1.5); ALKALINE PHOSPHATASE 620 IU/L (46-116); ANION GAP 13 (8-16); ASPARTATE AMINO TRANSFERASE 169 U/L (10-37); BILIRUBIN,TOTAL 0.9 MG/DL (0.1-1.0); BLOOD UREA NITROGEN 101 MG/DL (7-18); BUN/CREATININE RATIO 19.5 (10.0-20.0); CALCIUM 7.7 MG/DL (8.5-10.1); CHLORIDE 98 MMOL/L (99-107); CREATININE 5.17 MG/DL (0.40-0.90); GLUCOSE 165 MG/DL (70-104); MAGNESIUM 3.2 MG/DL (1.5-2.4); PHOSPHORUS 7.2 MG/DL (2.3-4.5); POTASSIUM 4.7 MMOL/L (3.5-5.1); SODIUM 131 MMOL/L (135-145); TOTAL PROTEIN 5.1 G/DL (6.4-8.2); eCRCL 9 ML/MIN; eGFR 8 ML/MIN
[2023-05-20 11:09] LABS: BILIRUBIN,URINE NEGATIVE (Neg); CLARITY,URINE CLOUDY (Clear); COLOR,URINE YELLOW (Yellow); GLUCOSE, URINE NEGATIVE (Neg); KETONES,URINE NEGATIVE (Neg); LEUKOCYTE ESTERASE ,URINE TRACE (Neg); NITRITES, URINE NEGATIVE (Neg); OCCULT BLOOD,URINE SMALL (Neg); PROTEIN,URINE NEGATIVE (Neg); UROBILINOGEN,URINE 0.2 E.U/dL (0.2-1.0)
[2023-05-20 11:19] LABS: UA COLLECTION TYPE NON-SPECIFIED
[2023-05-20 11:23] LABS: BACTERIA,URINE 4+ /HPF (Neg); CAL OXALATE CRYSTALS 4+ /HPF (NEGATIVE); SQUAMOUS EPITHELIAL CELL,UR MANY /LPF (FEW)
[2023-05-20 11:25] LABS: RBC,URINE 0-2 /HPF (0-2); WBC,URINE 20-30 /HPF (0-4); YEAST MANY /HPF (NEGATIVE)
[2023-05-20 11:26] LABS: AMORPHOUS URATES 2+
[2023-05-20] MEDS: LidoCAINE 2% Topical Jelly 11mL syringe (UROJET) TOP ONE (11:50)
[2023-05-20] MEDS: ipratropium/albuterol 3ml nebule NEB SCH ×2 (12:19→15:45)
[2023-05-20 12:23] LABS: ANTINUCLEAR ANTIBODIES Negative (Negative)
[2023-05-20] MEDS: LIDOcaine 1% (10mg/ml) 2ml vial ONE (15:14)
[2023-05-20 15:32] LABS: BILIRUBIN,URINE NEGATIVE (Neg); CLARITY,URINE SLIGHTLY CLOUDY (Clear); COLOR,URINE YELLOW (Yellow); GLUCOSE, URINE NEGATIVE (Neg); KETONES,URINE NEGATIVE (Neg); LEUKOCYTE ESTERASE ,URINE NEGATIVE (Neg); NITRITES, URINE NEGATIVE (Neg); OCCULT BLOOD,URINE NEGATIVE (Neg); PROTEIN,URINE NEGATIVE (Neg); UROBILINOGEN,URINE 0.2 E.U/dL (0.2-1.0)
[2023-05-20 15:38] LABS: UA COLLECTION TYPE FOLEY CATH
[2023-05-20 15:40] LABS: SQUAMOUS EPITHELIAL CELL,UR FEW /LPF (FEW)
[2023-05-20] MEDS ORDERED: albumin (human) 25% 100ml IV 100 ML IV PRN (15:40)
[2023-05-20 15:41] LABS: WBC,URINE 0-4 /HPF (0-4)
[2023-05-20 15:44] LABS: AMORPHOUS URATES 2+; BACTERIA,URINE FEW /HPF (Neg)
[2023-05-20 15:45] LABS: CAL OXALATE CRYSTALS FEW /HPF (NEGATIVE); RBC,URINE 0-2 /HPF (0-2)
[2023-05-20] MEDS: allopurinol 100mg tablet PO SCH (16:23)
[2023-05-20 17:17] LABS: ABG BASE EXCESS -3.3 mmol/L (-2.0-2.0); ABG HCO3 21.8 mmol/L (22.0-26.0); ABG OXYGEN SATURATION 99.3 % (94-97); ABG PCO2 (T) 39.2 mmHg (32.0-45.0); ABG PH (T) 7.363 (7.350-7.450); ABG PO2 (T) 193.6 mmHg (75.0-100.0); ALLEN'S TEST POSITIVE; FCOHb 0.7 % (0.0-3.9); FHHb 0.7 % (0.0-5.0); FMetHb 0.3 % (0.0-1.5); FO2Hb 98.3 % (94-97); TOTAL HEMOGLOBIN 9.1 G/dl (12.0-16.0)
[2023-05-20 19:00] LABS: ANTISTREPTOLYSIN O AB 45.7 IU/mL (0.0-200.0); COMPLEMENT C3, SERUM 101 mg/dL (82-167); COMPLEMENT C4, SERUM 35 mg/dL (12-38); IMMUNOGLOBULIN A, QN, SERUM 184 mg/dL (64-422); IMMUNOGLOBULIN G, QN, SERUM 635 mg/dL (586-1602); IMMUNOGLOBULIN M, QN, SERUM 46 mg/dL (26-217)
[2023-05-20] MEDS ORDERED: calcium chloride inj. 1,000 MG in normal saline 100ml IV soln 100 ML IV PRN (19:00)
[2023-05-20] MEDS ORDERED: potassium Cl 40MEQ/270ML bag 270 ML IV PRN (19:00)
[2023-05-20] MEDS: EPOETIN ALFA-EPBX 20,000 UNIT/ML 1 ML MDV IV ONE (19:46)
[2023-05-20] MEDS: heparin 1,000 units/ml 10ml inj HE ONE ×4 (19:47→21:33)
[2023-05-20] MEDS: furosemide 40mg/4ml inj IV SCH (20:23)
[2023-05-21] VITALS (38 sets, daily range): BP systolic 103–150; BP diastolic 31–56; PULSE 57–94; RESP 14–30; O2SAT 91–100
[2023-05-21 01:28] LABS: EOSINOPHILS # (AUTO) 0.5 X10'3 (0-0.9); HEMOGLOBIN 7.7 g/dl (12.0-16.0)
[2023-05-21 01:30] LABS: BASOPHILS % (AUTO) 0.1 % (0-1); EOSINOPHILS % (AUTO) 2.7 % (0-6); HEMATOCRIT 23.2 % (35.0-45.0); LYMPHOCYTES # (AUTO) 0.5 X10'3 (1.1-4.8); LYMPHOCYTES % (AUTO) 2.7 % (21-51); MEAN CORPUSCULAR HEMOGLOBIN 29.6 PG (27.0-31.0); MEAN CORPUSCULAR HGB CONC 33.2 g/dL (33.0-36.5); MEAN PLATELET VOLUME 9.6 FL (7.4-10.4); MONOCYTES # (AUTO) 1.1 X10'3 (0-0.9); MONOCYTES % (AUTO) 5.2 % (2-12); NEUTROPHILS # (AUTO) 18.3 X10'3 (1.8-7.7); NEUTROPHILS % (AUTO) 89.3 % (42-75); PLATELET COUNT 197 X10'3 (140-440); RED BLOOD COUNT 2.61 X10'6 (4.20-5.60); RED CELL DISTRIBUTION WIDTH 18.2 % (11.5-14.5); WHITE BLOOD COUNT 20.5 X10'3 (4.5-11.0)
[2023-05-21 01:40] LABS: ALANINE AMINOTRANSFERASE 289 U/L (12-78); ALBUMIN 1.7 G/DL (3.4-5.0); ALBUMIN/GLOBULIN RATIO 0.6 (1.1-1.5); ALKALINE PHOSPHATASE 586 IU/L (46-116); ANION GAP 11 (8-16); ASPARTATE AMINO TRANSFERASE 97 U/L (10-37); BLOOD UREA NITROGEN 97 MG/DL (7-18); CALCIUM 7.7 MG/DL (8.5-10.1); CHLORIDE 99 MMOL/L (99-107); CREATININE 4.63 MG/DL (0.40-0.90); GLUCOSE 123 MG/DL (70-104); MAGNESIUM 2.9 MG/DL (1.5-2.4); PHOSPHORUS 6.7 MG/DL (2.3-4.5); POTASSIUM 4.2 MMOL/L (3.5-5.1); SODIUM 135 MMOL/L (135-145); TOTAL CARBON DIOXIDE 25.5 MMOL/L (24-32); TOTAL PROTEIN 4.6 G/DL (6.4-8.2); eCRCL 10 ML/MIN; eGFR 9 ML/MIN
[2023-05-21 03:34] LABS: ANISOCYTOSIS 2+; BURR CELLS FEW; ELLIPTOCYTES FEW; NUCLEATED RED BLOOD CELLS 3 /100WBC (0-0); PLATELET ESTIMATE NORMAL; POLYCHROMASIA FEW; TOTAL CELLS COUNTED 100
[2023-05-21] MEDS: meropenem inj 500 MG in normal saline 100ml IV soln 100 ML IV SCH (08:18)
[2023-05-21] MEDS: pantoprazole 40MG/NS 100ML BAG 100 ML IV SCH (12:44)
[2023-05-21] MEDS: heparin, porcine 5000 units/ml vial SQ SCH (12:44)
[2023-05-21] MEDS: LIDOcaine 1% (10mg/ml) 2ml vial ONE (15:27)
[2023-05-21] MEDS: Duosol 4K/3 Ca (w/calcium) 5,000 ML HE SCH (15:28)
[2023-05-21 18:16] LABS: BASOPHILS # (AUTO) 0.1 X10'3 (0-0.2); EOSINOPHILS # (AUTO) 0.4 X10'3 (0-0.9); NEUTROPHILS # (AUTO) 16.7 X10'3 (1.8-7.7); PLATELET COUNT 176 X10'3 (140-440)
[2023-05-21 18:18] LABS: BASOPHILS % (AUTO) 0.4 % (0-1); EOSINOPHILS % (AUTO) 2.4 % (0-6); HEMATOCRIT 22.7 % (35.0-45.0); HEMOGLOBIN 7.5 g/dl (12.0-16.0); LYMPHOCYTES # (AUTO) 0.5 X10'3 (1.1-4.8); MEAN CORPUSCULAR HEMOGLOBIN 29.2 PG (27.0-31.0); MEAN CORPUSCULAR HGB CONC 32.8 g/dL (33.0-36.5); MEAN CORPUSCULAR VOLUME 89.1 FL (78-98); MONOCYTES # (AUTO) 0.6 X10'3 (0-0.9); NEUTROPHILS % (AUTO) 91.2 % (42-75); RED BLOOD COUNT 2.55 X10'6 (4.20-5.60); RED CELL DISTRIBUTION WIDTH 17.9 % (11.5-14.5); WHITE BLOOD COUNT 18.3 X10'3 (4.5-11.0)
[2023-05-21 18:28] LABS: ALBUMIN 1.6 G/DL (3.4-5.0); ANION GAP 7 (8-16); BLOOD UREA NITROGEN 84 MG/DL (7-18); BUN/CREATININE RATIO 21.7 (10.0-20.0); CHLORIDE 100 MMOL/L (99-107); CREATININE 3.87 MG/DL (0.40-0.90); GLUCOSE 117 MG/DL (70-104); MAGNESIUM 2.9 MG/DL (1.5-2.4); PHOSPHORUS 6.1 MG/DL (2.3-4.5); POTASSIUM 4.3 MMOL/L (3.5-5.1); SODIUM 134 MMOL/L (135-145); TOTAL CARBON DIOXIDE 26.9 MMOL/L (24-32); eGFR 11 ML/MIN
[2023-05-21] MEDS: HYDROmorphone inj. 0.5 MG/0.5 ML DISP.SYRIN IV ONE (19:04)
[2023-05-21 19:45] LABS: EOSINOPHILS # (AUTO) 0.5 X10'3 (0-0.9); HEMOGLOBIN 7.5 g/dl (12.0-16.0); LYMPHOCYTES # (AUTO) 0.5 X10'3 (1.1-4.8); MEAN CORPUSCULAR HEMOGLOBIN 29.4 PG (27.0-31.0); RED BLOOD COUNT 2.54 X10'6 (4.20-5.60)
[2023-05-21 19:46] LABS: BASOPHILS # (AUTO) 0.1 X10'3 (0-0.2); BASOPHILS % (AUTO) 0.6 % (0-1); EOSINOPHILS % (AUTO) 2.4 % (0-6); HEMATOCRIT 22.6 % (35.0-45.0); LYMPHOCYTES % (AUTO) 2.2 % (21-51); MEAN CORPUSCULAR HGB CONC 33.1 g/dL (33.0-36.5); MEAN CORPUSCULAR VOLUME 88.8 FL (78-98); MEAN PLATELET VOLUME 9.9 FL (7.4-10.4); MONOCYTES # (AUTO) 0.8 X10'3 (0-0.9); NEUTROPHILS # (AUTO) 19.2 X10'3 (1.8-7.7); NEUTROPHILS % (AUTO) 90.8 % (42-75); PLATELET COUNT 184 X10'3 (140-440); WHITE BLOOD COUNT 21.1 X10'3 (4.5-11.0)
[2023-05-21 19:58] LABS: ALBUMIN 1.6 G/DL (3.4-5.0); ANION GAP 5 (8-16); BLOOD UREA NITROGEN 78 MG/DL (7-18); BUN/CREATININE RATIO 21.5 (10.0-20.0); CALCIUM CVVH 7.5 MG/DL (8.5-10.1); CHLORIDE 100 MMOL/L (99-107); CREATININE 3.63 MG/DL (0.40-0.90); GLUCOSE 114 MG/DL (70-104); MAGNESIUM 2.8 MG/DL (1.5-2.4); PHOSPHORUS 5.8 MG/DL (2.3-4.5); POTASSIUM 4.3 MMOL/L (3.5-5.1); SODIUM 134 MMOL/L (135-145); TOTAL CARBON DIOXIDE 29.5 MMOL/L (24-32); eGFR 12 ML/MIN
[2023-05-21 20:47] LABS: BASOPHILS % (AUTO) 0.2 % (0-1); EOSINOPHILS # (AUTO) 0.5 X10'3 (0-0.9); EOSINOPHILS % (AUTO) 2.2 % (0-6); HEMATOCRIT 22.8 % (35.0-45.0); HEMOGLOBIN 7.5 g/dl (12.0-16.0); LYMPHOCYTES # (AUTO) 0.6 X10'3 (1.1-4.8); LYMPHOCYTES % (AUTO) 2.7 % (21-51); MEAN CORPUSCULAR HEMOGLOBIN 29.4 PG (27.0-31.0); MEAN CORPUSCULAR VOLUME 89.2 FL (78-98); MEAN PLATELET VOLUME 9.3 FL (7.4-10.4); MONOCYTES # (AUTO) 1.1 X10'3 (0-0.9); MONOCYTES % (AUTO) 4.9 % (2-12); NEUTROPHILS # (AUTO) 19.2 X10'3 (1.8-7.7); PLATELET COUNT 181 X10'3 (140-440); RED BLOOD COUNT 2.56 X10'6 (4.20-5.60); RED CELL DISTRIBUTION WIDTH 18.2 % (11.5-14.5); WHITE BLOOD COUNT 21.4 X10'3 (4.5-11.0)
[2023-05-21 21:00] LABS: ALBUMIN 1.6 G/DL (3.4-5.0); ANION GAP 4 (8-16); BLOOD UREA NITROGEN 75 MG/DL (7-18); BUN/CREATININE RATIO 22.4 (10.0-20.0); CALCIUM CVVH 7.6 MG/DL (8.5-10.1); CHLORIDE 101 MMOL/L (99-107); CREATININE 3.35 MG/DL (0.40-0.90); GLUCOSE 109 MG/DL (70-104); MAGNESIUM 2.6 MG/DL (1.5-2.4); PHOSPHORUS 5.4 MG/DL (2.3-4.5); POTASSIUM 4.3 MMOL/L (3.5-5.1); SODIUM 134 MMOL/L (135-145); TOTAL CARBON DIOXIDE 29.4 MMOL/L (24-32); eGFR 14 ML/MIN
[2023-05-21 21:34] LABS: HEMOGLOBIN 7.7 g/dl (12.0-16.0); MEAN PLATELET VOLUME 9.6 FL (7.4-10.4)
[2023-05-21 21:39] LABS: BASOPHILS # (AUTO) 0.1 X10'3 (0-0.2); BASOPHILS % (AUTO) 0.2 % (0-1); EOSINOPHILS # (AUTO) 0.5 X10'3 (0-0.9); EOSINOPHILS % (AUTO) 2.2 % (0-6); HEMATOCRIT 23.4 % (35.0-45.0); LYMPHOCYTES # (AUTO) 0.7 X10'3 (1.1-4.8); LYMPHOCYTES % (AUTO) 2.9 % (21-51); MEAN CORPUSCULAR HEMOGLOBIN 29.3 PG (27.0-31.0); MEAN CORPUSCULAR HGB CONC 32.8 g/dL (33.0-36.5); MEAN CORPUSCULAR VOLUME 89.2 FL (78-98); MONOCYTES # (AUTO) 1.4 X10'3 (0-0.9); MONOCYTES % (AUTO) 6.2 % (2-12); NEUTROPHILS # (AUTO) 20.5 X10'3 (1.8-7.7); NEUTROPHILS % (AUTO) 88.5 % (42-75); PLATELET COUNT 186 X10'3 (140-440); RED BLOOD COUNT 2.62 X10'6 (4.20-5.60); RED CELL DISTRIBUTION WIDTH 18.1 % (11.5-14.5); WHITE BLOOD COUNT 23.1 X10'3 (4.5-11.0)
[2023-05-21 21:47] LABS: ALBUMIN 1.7 G/DL (3.4-5.0); ANION GAP 5 (8-16); BLOOD UREA NITROGEN 70 MG/DL (7-18); BUN/CREATININE RATIO 21.9 (10.0-20.0); CHLORIDE 100 MMOL/L (99-107); GLUCOSE 105 MG/DL (70-104); MAGNESIUM 2.7 MG/DL (1.5-2.4); PHOSPHORUS 4.9 MG/DL (2.3-4.5); POTASSIUM 4.3 MMOL/L (3.5-5.1); SODIUM 135 MMOL/L (135-145); TOTAL CARBON DIOXIDE 29.6 MMOL/L (24-32); eGFR 14 ML/MIN
[2023-05-21] MEDS ORDERED: HYDROmorphone inj. 0.5 MG/0.5 ML DISP.SYRIN IV PRN (22:35)
[2023-05-21 23:36] LABS: NUCLEATED RED BLOOD CELLS 4 /100WBC (0-0); TOTAL CELLS COUNTED 100
[2023-05-21 23:38] LABS: ANISOCYTOSIS 2+; BURR CELLS FEW; PLATELET ESTIMATE NORMAL; POLYCHROMASIA FEW; SCHISTOCYTES FEW; TARGET CELLS FEW
[2023-05-22] VITALS (38 sets, daily range): BP systolic 108–159; BP diastolic 35–90; PULSE 54–70; RESP 11–25; O2SAT 94–98
[2023-05-22 02:40] LABS: NEUTROPHILS # (AUTO) 19.7 X10'3 (1.8-7.7); RED CELL DISTRIBUTION WIDTH 18.3 % (11.5-14.5); WHITE BLOOD COUNT 22.1 X10'3 (4.5-11.0)
[2023-05-22 02:42] LABS: BASOPHILS # (AUTO) 0.1 X10'3 (0-0.2); BASOPHILS % (AUTO) 0.3 % (0-1); EOSINOPHILS # (AUTO) 0.5 X10'3 (0-0.9); EOSINOPHILS % (AUTO) 2.5 % (0-6); HEMATOCRIT 23.2 % (35.0-45.0); HEMOGLOBIN 7.7 g/dl (12.0-16.0); LYMPHOCYTES # (AUTO) 0.6 X10'3 (1.1-4.8); LYMPHOCYTES % (AUTO) 2.6 % (21-51); MEAN CORPUSCULAR HEMOGLOBIN 29.4 PG (27.0-31.0); MEAN CORPUSCULAR VOLUME 89.1 FL (78-98); MEAN PLATELET VOLUME 9.8 FL (7.4-10.4); MONOCYTES # (AUTO) 1.2 X10'3 (0-0.9); MONOCYTES % (AUTO) 5.5 % (2-12); NEUTROPHILS % (AUTO) 89.1 % (42-75); PLATELET COUNT 180 X10'3 (140-440)
[2023-05-22 02:53] LABS: ALBUMIN 1.7 G/DL (3.4-5.0); ANION GAP 5 (8-16); BLOOD UREA NITROGEN 57 MG/DL (7-18); BUN/CREATININE RATIO 21.9 (10.0-20.0); CHLORIDE 102 MMOL/L (99-107); GLUCOSE 97 MG/DL (70-104); MAGNESIUM 2.4 MG/DL (1.5-2.4); PHOSPHORUS 4.2 MG/DL (2.3-4.5); POTASSIUM 4.1 MMOL/L (3.5-5.1); SODIUM 136 MMOL/L (135-145); TOTAL CARBON DIOXIDE 29.5 MMOL/L (24-32); eCRCL 17 ML/MIN; eGFR 18 ML/MIN
[2023-05-22 05:28] LABS: ANISOCYTOSIS 2+; PLATELET ESTIMATE NORMAL; TOTAL CELLS COUNTED 100
[2023-05-22 05:29] LABS: HYPOCHROMASIA 1+; POLYCHROMASIA FEW; SCHISTOCYTES FEW; TARGET CELLS FEW
[2023-05-22] MEDS: ondansetron/PF 4mg/2ml inj IV PRN (08:23)
[2023-05-22 09:06] LABS: BASOPHILS % (AUTO) 0.2 % (0-1); EOSINOPHILS # (AUTO) 0.5 X10'3 (0-0.9); EOSINOPHILS % (AUTO) 2.8 % (0-6); HEMATOCRIT 22.4 % (35.0-45.0); HEMOGLOBIN 7.2 g/dl (12.0-16.0); LYMPHOCYTES # (AUTO) 0.8 X10'3 (1.1-4.8); LYMPHOCYTES % (AUTO) 4.1 % (21-51); MEAN CORPUSCULAR HEMOGLOBIN 28.7 PG (27.0-31.0); MEAN CORPUSCULAR HGB CONC 32.1 g/dL (33.0-36.5); MEAN CORPUSCULAR VOLUME 89.6 FL (78-98); MEAN PLATELET VOLUME 9.2 FL (7.4-10.4); MONOCYTES % (AUTO) 5.1 % (2-12); NEUTROPHILS # (AUTO) 16.8 X10'3 (1.8-7.7); NEUTROPHILS % (AUTO) 87.8 % (42-75); PLATELET COUNT 159 X10'3 (140-440); WHITE BLOOD COUNT 19.2 X10'3 (4.5-11.0)
[2023-05-22 09:23] LABS: ALBUMIN 1.7 G/DL (3.4-5.0); ANION GAP 4 (8-16); BLOOD UREA NITROGEN 42 MG/DL (7-18); BUN/CREATININE RATIO 22.2 (10.0-20.0); CALCIUM 7.9 MG/DL (8.5-10.1); CHLORIDE 105 MMOL/L (99-107); CREATININE 1.89 MG/DL (0.40-0.90); GLUCOSE 95 MG/DL (70-104); MAGNESIUM 2.2 MG/DL (1.5-2.4); POTASSIUM 4.2 MMOL/L (3.5-5.1); SODIUM 138 MMOL/L (135-145); TOTAL CARBON DIOXIDE 29.5 MMOL/L (24-32); eCRCL 24 ML/MIN; eGFR 26 ML/MIN
[2023-05-22] MEDS: NUT.TX.IMP.RENAL FXN,LAC-REDUC (Nepro) 237 ML VANILLA PO SCH (13:20)
[2023-05-22 15:47] LABS: BASOPHILS # (AUTO) 0.1 X10'3 (0-0.2); BASOPHILS % (AUTO) 0.7 % (0-1); EOSINOPHILS # (AUTO) 0.4 X10'3 (0-0.9); HEMATOCRIT 22.6 % (35.0-45.0); HEMOGLOBIN 7.3 g/dl (12.0-16.0); LYMPHOCYTES # (AUTO) 0.6 X10'3 (1.1-4.8); LYMPHOCYTES % (AUTO) 3.5 % (21-51); MEAN CORPUSCULAR HEMOGLOBIN 29.3 PG (27.0-31.0); MEAN CORPUSCULAR HGB CONC 32.4 g/dL (33.0-36.5); MEAN CORPUSCULAR VOLUME 90.4 FL (78-98); MEAN PLATELET VOLUME 9.5 FL (7.4-10.4); MONOCYTES # (AUTO) 0.8 X10'3 (0-0.9); MONOCYTES % (AUTO) 4.5 % (2-12); NEUTROPHILS # (AUTO) 15.9 X10'3 (1.8-7.7); NEUTROPHILS % (AUTO) 89.3 % (42-75); PLATELET COUNT 167 X10'3 (140-440); RED CELL DISTRIBUTION WIDTH 18.4 % (11.5-14.5); WHITE BLOOD COUNT 17.8 X10'3 (4.5-11.0)
[2023-05-22 16:03] LABS: ALBUMIN 1.7 G/DL (3.4-5.0); ANION GAP 4 (8-16); BLOOD UREA NITROGEN 34 MG/DL (7-18); BUN/CREATININE RATIO 21.7 (10.0-20.0); CALCIUM 8.3 MG/DL (8.5-10.1); CHLORIDE 106 MMOL/L (99-107); CREATININE 1.57 MG/DL (0.40-0.90); GLUCOSE 152 MG/DL (70-104); POTASSIUM 4.2 MMOL/L (3.5-5.1); SODIUM 139 MMOL/L (135-145); TOTAL CARBON DIOXIDE 29.2 MMOL/L (24-32); eCRCL 28 ML/MIN; eGFR 32 ML/MIN
[2023-05-22 19:34] LABS: BASOPHILS % (AUTO) 0.3 % (0-1); EOSINOPHILS # (AUTO) 0.4 X10'3 (0-0.9); EOSINOPHILS % (AUTO) 2.2 % (0-6); HEMOGLOBIN 7.4 g/dl (12.0-16.0); LYMPHOCYTES # (AUTO) 0.7 X10'3 (1.1-4.8); LYMPHOCYTES % (AUTO) 3.8 % (21-51); MEAN CORPUSCULAR HEMOGLOBIN 29.1 PG (27.0-31.0); MEAN CORPUSCULAR HGB CONC 32.2 g/dL (33.0-36.5); MEAN CORPUSCULAR VOLUME 90.3 FL (78-98); MEAN PLATELET VOLUME 9.3 FL (7.4-10.4); MONOCYTES # (AUTO) 0.8 X10'3 (0-0.9); MONOCYTES % (AUTO) 4.7 % (2-12); NEUTROPHILS # (AUTO) 15.9 X10'3 (1.8-7.7); PLATELET COUNT 174 X10'3 (140-440); RED BLOOD COUNT 2.55 X10'6 (4.20-5.60); RED CELL DISTRIBUTION WIDTH 18.2 % (11.5-14.5); WHITE BLOOD COUNT 17.8 X10'3 (4.5-11.0)
[2023-05-22 19:45] LABS: ALBUMIN 1.8 G/DL (3.4-5.0); ANION GAP 1 (8-16); BLOOD UREA NITROGEN 27 MG/DL (7-18); BUN/CREATININE RATIO 19.3 (10.0-20.0); CALCIUM 8.1 MG/DL (8.5-10.1); CHLORIDE 105 MMOL/L (99-107); GLUCOSE 119 MG/DL (70-104); MAGNESIUM 1.9 MG/DL (1.5-2.4); PHOSPHORUS 2.7 MG/DL (2.3-4.5); POTASSIUM 4.3 MMOL/L (3.5-5.1); SODIUM 138 MMOL/L (135-145); TOTAL CARBON DIOXIDE 32.1 MMOL/L (24-32); eCRCL 32 ML/MIN; eGFR 37 ML/MIN
[2023-05-23] VITALS (43 sets, daily range): BP systolic 109–162; BP diastolic 38–92; PULSE 48–100; RESP 12–24; TEMP 98.6–98.8; O2SAT 90–98
[2023-05-23 01:42] LABS: BASOPHILS % (AUTO) 0.2 % (0-1); EOSINOPHILS # (AUTO) 0.4 X10'3 (0-0.9); EOSINOPHILS % (AUTO) 2.6 % (0-6); LYMPHOCYTES # (AUTO) 0.7 X10'3 (1.1-4.8); LYMPHOCYTES % (AUTO) 4.3 % (21-51); MEAN CORPUSCULAR HGB CONC 33.2 g/dL (33.0-36.5); MEAN CORPUSCULAR VOLUME 90.4 FL (78-98); MONOCYTES # (AUTO) 0.9 X10'3 (0-0.9); MONOCYTES % (AUTO) 5.8 % (2-12); NEUTROPHILS # (AUTO) 14.3 X10'3 (1.8-7.7); NEUTROPHILS % (AUTO) 87.1 % (42-75); PLATELET COUNT 153 X10'3 (140-440); RED BLOOD COUNT 2.36 X10'6 (4.20-5.60); RED CELL DISTRIBUTION WIDTH 18.6 % (11.5-14.5); WHITE BLOOD COUNT 16.4 X10'3 (4.5-11.0)
[2023-05-23 01:53] LABS: HEMATOCRIT 21.4 % (35.0-45.0); HEMOGLOBIN 7.1 g/dl (12.0-16.0)
[2023-05-23 01:56] LABS: ALBUMIN 1.7 G/DL (3.4-5.0); ANION GAP 2 (8-16); BLOOD UREA NITROGEN 22 MG/DL (7-18); BUN/CREATININE RATIO 19.3 (10.0-20.0); C-REACTIVE PROTEIN 18.04 MG/DL (0.0-0.5); CALCIUM 8.1 MG/DL (8.5-10.1); CHLORIDE 106 MMOL/L (99-107); CREATININE 1.14 MG/DL (0.40-0.90); GLUCOSE 95 MG/DL (70-104); MAGNESIUM 1.9 MG/DL (1.5-2.4); PHOSPHORUS 2.3 MG/DL (2.3-4.5); POTASSIUM 4.1 MMOL/L (3.5-5.1); SODIUM 138 MMOL/L (135-145); TOTAL CARBON DIOXIDE 30.1 MMOL/L (24-32); eCRCL 39 ML/MIN; eGFR 47 ML/MIN
[2023-05-23 02:27] LABS: NUCLEATED RED BLOOD CELLS 1 /100WBC (0-0); TOTAL CELLS COUNTED 100
[2023-05-23 02:28] LABS: ANISOCYTOSIS 2+; PLATELET ESTIMATE NORMAL
[2023-05-23 02:29] LABS: POLYCHROMASIA FEW
[2023-05-23 02:30] LABS: HYPOCHROMASIA 1+
[2023-05-23] MEDS: sodium phosphate inj. 30 MMOL in dextrose 5%-water 250 ML IV PRN (05:19)
[2023-05-23 08:18] LABS: BASOPHILS # (AUTO) 0.1 X10'3 (0-0.2); BASOPHILS % (AUTO) 0.4 % (0-1); EOSINOPHILS # (AUTO) 0.4 X10'3 (0-0.9); EOSINOPHILS % (AUTO) 2.1 % (0-6); HEMATOCRIT 25.9 % (35.0-45.0); HEMOGLOBIN 8.5 g/dl (12.0-16.0); LYMPHOCYTES # (AUTO) 0.6 X10'3 (1.1-4.8); LYMPHOCYTES % (AUTO) 3.3 % (21-51); MEAN CORPUSCULAR HEMOGLOBIN 29.7 PG (27.0-31.0); MEAN CORPUSCULAR VOLUME 90.2 FL (78-98); MEAN PLATELET VOLUME 9.8 FL (7.4-10.4); MONOCYTES % (AUTO) 5.2 % (2-12); NEUTROPHILS # (AUTO) 16.9 X10'3 (1.8-7.7); PLATELET COUNT 156 X10'3 (140-440); RED BLOOD COUNT 2.87 X10'6 (4.20-5.60); RED CELL DISTRIBUTION WIDTH 17.4 % (11.5-14.5)
[2023-05-23 08:23] LABS: ALBUMIN 1.8 G/DL (3.4-5.0); ANION GAP 3 (8-16); BLOOD UREA NITROGEN 18 MG/DL (7-18); BUN/CREATININE RATIO 17.6 (10.0-20.0); CALCIUM 8.2 MG/DL (8.5-10.1); CHLORIDE 104 MMOL/L (99-107); CREATININE 1.02 MG/DL (0.40-0.90); GLUCOSE 130 MG/DL (70-104); MAGNESIUM 1.5 MG/DL (1.5-2.4); PHOSPHORUS 2.8 MG/DL (2.3-4.5); POTASSIUM 4.2 MMOL/L (3.5-5.1); SODIUM 137 MMOL/L (135-145); TOTAL CARBON DIOXIDE 30.1 MMOL/L (24-32); eCRCL 44 ML/MIN; eGFR 53 ML/MIN
[2023-05-23] MEDS: MEROPENEM 1GM/NS 100ML IVPB IV SCH (08:29)
[2023-05-23] MEDS: magnesium 4gm in 100ml NS 100 ML IV PRN (09:57)
[2023-05-23] MEDS: ondansetron 4mg rapidly disintigrating tab PO PRN (10:59)
[2023-05-23 14:18] LABS: BASOPHILS # (AUTO) 0.1 X10'3 (0-0.2); BASOPHILS % (AUTO) 0.3 % (0-1); EOSINOPHILS # (AUTO) 0.4 X10'3 (0-0.9); EOSINOPHILS % (AUTO) 1.9 % (0-6); HEMATOCRIT 25.9 % (35.0-45.0); HEMOGLOBIN 8.5 g/dl (12.0-16.0); LYMPHOCYTES # (AUTO) 0.8 X10'3 (1.1-4.8); LYMPHOCYTES % (AUTO) 4.2 % (21-51); MEAN CORPUSCULAR HEMOGLOBIN 29.7 PG (27.0-31.0); MEAN CORPUSCULAR HGB CONC 32.8 g/dL (33.0-36.5); MEAN CORPUSCULAR VOLUME 90.3 FL (78-98); MEAN PLATELET VOLUME 9.9 FL (7.4-10.4); MONOCYTES # (AUTO) 0.9 X10'3 (0-0.9); MONOCYTES % (AUTO) 4.6 % (2-12); NEUTROPHILS # (AUTO) 17.1 X10'3 (1.8-7.7); PLATELET COUNT 161 X10'3 (140-440); RED BLOOD COUNT 2.87 X10'6 (4.20-5.60); RED CELL DISTRIBUTION WIDTH 17.4 % (11.5-14.5); WHITE BLOOD COUNT 19.2 X10'3 (4.5-11.0)
[2023-05-23 14:28] LABS: ALBUMIN 1.8 G/DL (3.4-5.0); ANION GAP 5 (8-16); BLOOD UREA NITROGEN 15 MG/DL (7-18); BUN/CREATININE RATIO 16.1 (10.0-20.0); CALCIUM 8.6 MG/DL (8.5-10.1); CHLORIDE 105 MMOL/L (99-107); CREATININE 0.93 MG/DL (0.40-0.90); GLUCOSE 128 MG/DL (70-104); MAGNESIUM 2.3 MG/DL (1.5-2.4); PHOSPHORUS 2.8 MG/DL (2.3-4.5); POTASSIUM 4.1 MMOL/L (3.5-5.1); SODIUM 139 MMOL/L (135-145); TOTAL CARBON DIOXIDE 28.6 MMOL/L (24-32); eCRCL 48 ML/MIN; eGFR 59 ML/MIN
[2023-05-23 16:05] LABS: ATYPICAL PANCA <1:20 titer (Neg:<1:20); CYTOPLASMIC (C-ANCA) <1:20 titer (Neg:<1:20); PERINUCLEAR (P-ANCA) <1:20 titer (Neg:<1:20)
[2023-05-23 16:05] LABS: HBSAG SCREEN Negative (Negative)
[2023-05-23 20:43] LABS: BASOPHILS # (AUTO) 0.1 X10'3 (0-0.2); BASOPHILS % (AUTO) 0.4 % (0-1); EOSINOPHILS # (AUTO) 0.3 X10'3 (0-0.9); EOSINOPHILS % (AUTO) 1.4 % (0-6); HEMATOCRIT 25.9 % (35.0-45.0); HEMOGLOBIN 8.7 g/dl (12.0-16.0); LYMPHOCYTES # (AUTO) 0.8 X10'3 (1.1-4.8); LYMPHOCYTES % (AUTO) 4.2 % (21-51); MEAN CORPUSCULAR HEMOGLOBIN 30.2 PG (27.0-31.0); MEAN CORPUSCULAR HGB CONC 33.5 g/dL (33.0-36.5); MEAN CORPUSCULAR VOLUME 90.1 FL (78-98); MEAN PLATELET VOLUME 10.1 FL (7.4-10.4); MONOCYTES # (AUTO) 0.9 X10'3 (0-0.9); MONOCYTES % (AUTO) 4.8 % (2-12); NEUTROPHILS # (AUTO) 16.8 X10'3 (1.8-7.7); NEUTROPHILS % (AUTO) 89.2 % (42-75); PLATELET COUNT 158 X10'3 (140-440); RED BLOOD COUNT 2.87 X10'6 (4.20-5.60); RED CELL DISTRIBUTION WIDTH 17.8 % (11.5-14.5); WHITE BLOOD COUNT 18.8 X10'3 (4.5-11.0)
[2023-05-23 20:48] LABS: ALBUMIN 1.8 G/DL (3.4-5.0); ANION GAP 6 (8-16); BLOOD UREA NITROGEN 13 MG/DL (7-18); BUN/CREATININE RATIO 15.5 (10.0-20.0); CALCIUM 8.7 MG/DL (8.5-10.1); CHLORIDE 105 MMOL/L (99-107); CREATININE 0.84 MG/DL (0.40-0.90); GLUCOSE 113 MG/DL (70-104); MAGNESIUM 2.2 MG/DL (1.5-2.4); PHOSPHORUS 2.2 MG/DL (2.3-4.5); POTASSIUM 4.1 MMOL/L (3.5-5.1); SODIUM 140 MMOL/L (135-145); TOTAL CARBON DIOXIDE 29.1 MMOL/L (24-32); eCRCL 53 ML/MIN; eGFR 67 ML/MIN
[2023-05-24] VITALS (34 sets, daily range): BP systolic 101–151; BP diastolic 45–78; PULSE 54–116; RESP 13–25; TEMP 98.2; O2SAT 90–97
[2023-05-24 02:44] LABS: BASOPHILS # (AUTO) 0.1 X10'3 (0-0.2); BASOPHILS % (AUTO) 0.5 % (0-1); EOSINOPHILS # (AUTO) 0.3 X10'3 (0-0.9); EOSINOPHILS % (AUTO) 1.7 % (0-6); HEMOGLOBIN 8.2 g/dl (12.0-16.0); LYMPHOCYTES # (AUTO) 0.8 X10'3 (1.1-4.8); LYMPHOCYTES % (AUTO) 4.1 % (21-51); MEAN CORPUSCULAR HEMOGLOBIN 29.8 PG (27.0-31.0); MEAN CORPUSCULAR HGB CONC 32.7 g/dL (33.0-36.5); MEAN PLATELET VOLUME 9.8 FL (7.4-10.4); MONOCYTES # (AUTO) 0.9 X10'3 (0-0.9); MONOCYTES % (AUTO) 4.4 % (2-12); NEUTROPHILS # (AUTO) 17.2 X10'3 (1.8-7.7); NEUTROPHILS % (AUTO) 89.3 % (42-75); PLATELET COUNT 147 X10'3 (140-440); RED BLOOD COUNT 2.75 X10'6 (4.20-5.60); RED CELL DISTRIBUTION WIDTH 17.5 % (11.5-14.5); WHITE BLOOD COUNT 19.3 X10'3 (4.5-11.0)
[2023-05-24 03:15] LABS: ALANINE AMINOTRANSFERASE 110 U/L (12-78); ALBUMIN 1.7 G/DL (3.4-5.0); ALBUMIN/GLOBULIN RATIO 0.5 (1.1-1.5); ALKALINE PHOSPHATASE 621 IU/L (46-116); ANION GAP 5 (8-16); ASPARTATE AMINO TRANSFERASE 35 U/L (10-37); BILIRUBIN,DIRECT 0.6 MG/DL (0-0.3); BILIRUBIN,TOTAL 0.9 MG/DL (0.1-1.0); BLOOD UREA NITROGEN 11 MG/DL (7-18); BUN/CREATININE RATIO 12.9 (10.0-20.0); CALCIUM 8.5 MG/DL (8.5-10.1); CHLORIDE 107 MMOL/L (99-107); CREATININE 0.85 MG/DL (0.40-0.90); GLUCOSE 96 MG/DL (70-104); MAGNESIUM 2.1 MG/DL (1.5-2.4); POTASSIUM 4.1 MMOL/L (3.5-5.1); SODIUM 141 MMOL/L (135-145); TOTAL CARBON DIOXIDE 28.8 MMOL/L (24-32); TOTAL PROTEIN 5.2 G/DL (6.4-8.2); eCRCL 52 ML/MIN; eGFR 66 ML/MIN
[2023-05-24 06:02] LABS: ANISOCYTOSIS 1+; PLATELET ESTIMATE NORMAL; TOTAL CELLS COUNTED 100
[2023-05-24 06:03] LABS: POIKILOCYTOSIS FEW
[2023-05-24 06:04] LABS: ELLIPTOCYTES 1+
[2023-05-24 06:05] LABS: HYPERSEGMENTED NEUTROPHILS 1+
[2023-05-24] MEDS: heparin 1,000 units/ml 10ml inj HE ONE ×2 (09:17→09:18)
[2023-05-24] MEDS: hydrOXYzine 25 MG tablet PO PRN (10:33)
[2023-05-24] MEDS ORDERED: albumin (human) 25% 100ml IV 100 ML IV PRN (11:50)
[2023-05-24] MEDS: furosemide 40mg/4ml inj IV SCH (13:50)
[2023-05-24] MEDS: clindamycin 600mg/D5W 50ml 50 ML IV SCH (13:51)
[2023-05-24] MEDS: docusate sod 100mg capsule PO SCH (13:51)
[2023-05-24] MEDS: polyethylene glycol 3350 17gm powd pack PO SCH (13:52)
[2023-05-24] MEDS: iron sucrose complex injection 200 MG in normal saline 100ml IV soln 100 ML IV SCH (13:52)
[2023-05-24] MEDS: meropenem inj 500 MG in normal saline 100ml IV soln 100 ML IV SCH (13:53)
[2023-05-24] MEDS ORDERED: allopurinol 100mg tablet PO SCH (14:32)
[2023-05-25] VITALS (19 sets, daily range): BP systolic 110–127; BP diastolic 45–60; PULSE 19–63; RESP 15–22; TEMP 97.2–97.9; O2SAT 85–100
[2023-05-25 07:52] LABS: BASOPHILS # (AUTO) 0.1 X10'3 (0-0.2); EOSINOPHILS # (AUTO) 0.3 X10'3 (0-0.9); HEMOGLOBIN 7.7 g/dl (12.0-16.0); LYMPHOCYTES # (AUTO) 0.6 X10'3 (1.1-4.8); MEAN CORPUSCULAR VOLUME 92.7 FL (78-98); NEUTROPHILS # (AUTO) 17.4 X10'3 (1.8-7.7)
[2023-05-25 07:54] LABS: BASOPHILS % (AUTO) 0.4 % (0-1); EOSINOPHILS % (AUTO) 1.3 % (0-6); HEMATOCRIT 23.7 % (35.0-45.0); LYMPHOCYTES % (AUTO) 3.3 % (21-51); MEAN CORPUSCULAR HGB CONC 32.3 g/dL (33.0-36.5); MONOCYTES # (AUTO) 1.1 X10'3 (0-0.9); MONOCYTES % (AUTO) 5.5 % (2-12); NEUTROPHILS % (AUTO) 89.5 % (42-75); PLATELET COUNT 144 X10'3 (140-440); RED BLOOD COUNT 2.56 X10'6 (4.20-5.60); RED CELL DISTRIBUTION WIDTH 17.8 % (11.5-14.5); WHITE BLOOD COUNT 19.5 X10'3 (4.5-11.0)
[2023-05-25 08:12] LABS: ALBUMIN 1.6 G/DL (3.4-5.0); ANION GAP 7 (8-16); BLOOD UREA NITROGEN 23 MG/DL (7-18); BUN/CREATININE RATIO 13.1 (10.0-20.0); CALCIUM 8.6 MG/DL (8.5-10.1); CHLORIDE 106 MMOL/L (99-107); CREATININE 1.76 MG/DL (0.40-0.90); GLUCOSE 95 MG/DL (70-104); LACTATE DEHYDROGENASE 157 U/L (81-234); POTASSIUM 4.1 MMOL/L (3.5-5.1); SODIUM 141 MMOL/L (135-145); TOTAL CARBON DIOXIDE 28.2 MMOL/L (24-32); eCRCL 25 ML/MIN; eGFR 28 ML/MIN
[2023-05-25] MEDS: allopurinol 300 MG tablet PO SCH (08:32)
[2023-05-25 08:52] LABS: NUCLEATED RED BLOOD CELLS 2 /100WBC (0-0); TOTAL CELLS COUNTED 100
[2023-05-25 08:54] LABS: ANISOCYTOSIS 1+; ELLIPTOCYTES FEW; PLATELET ESTIMATE NORMAL; POLYCHROMASIA FEW; TEAR DROP CELLS FEW
[2023-05-25 08:55] LABS: STOMATOCYTES 1+
[2023-05-25] MEDS ORDERED: allopurinol 100mg tablet PO SCH (12:50)
[2023-05-26] VITALS (35 sets, daily range): BP systolic 92–133; BP diastolic 34–59; PULSE 48–71; RESP 17–27; TEMP 96.7–98.9; O2SAT 86–100
[2023-05-26 08:11] LABS: BASOPHILS % (AUTO) 0.2 % (0-1); EOSINOPHILS # (AUTO) 0.3 X10'3 (0-0.9); EOSINOPHILS % (AUTO) 1.7 % (0-6); HEMATOCRIT 23.3 % (35.0-45.0); HEMOGLOBIN 7.4 g/dl (12.0-16.0); LYMPHOCYTES # (AUTO) 0.4 X10'3 (1.1-4.8); LYMPHOCYTES % (AUTO) 2.3 % (21-51); MEAN CORPUSCULAR HEMOGLOBIN 29.7 PG (27.0-31.0); MEAN CORPUSCULAR HGB CONC 31.7 g/dL (33.0-36.5); MEAN CORPUSCULAR VOLUME 93.6 FL (78-98); MEAN PLATELET VOLUME 9.9 FL (7.4-10.4); MONOCYTES % (AUTO) 6.1 % (2-12); NEUTROPHILS # (AUTO) 15.2 X10'3 (1.8-7.7); NEUTROPHILS % (AUTO) 89.7 % (42-75); PLATELET COUNT 147 X10'3 (140-440); RED BLOOD COUNT 2.48 X10'6 (4.20-5.60); RED CELL DISTRIBUTION WIDTH 18.5 % (11.5-14.5); WHITE BLOOD COUNT 16.9 X10'3 (4.5-11.0)
[2023-05-26 08:31] LABS: ALANINE AMINOTRANSFERASE 81 U/L (12-78); ALBUMIN 1.6 G/DL (3.4-5.0); ALBUMIN/GLOBULIN RATIO 0.5 (1.1-1.5); ALKALINE PHOSPHATASE 707 IU/L (46-116); ANION GAP 5 (8-16); ASPARTATE AMINO TRANSFERASE 43 U/L (10-37); BILIRUBIN,TOTAL 0.8 MG/DL (0.1-1.0); BLOOD UREA NITROGEN 34 MG/DL (7-18); BUN/CREATININE RATIO 14.4 (10.0-20.0); CALCIUM 8.3 MG/DL (8.5-10.1); CHLORIDE 104 MMOL/L (99-107); CREATININE 2.36 MG/DL (0.40-0.90); GLUCOSE 109 MG/DL (70-104); MAGNESIUM 2.1 MG/DL (1.5-2.4); PHOSPHORUS 5.8 MG/DL (2.3-4.5); POTASSIUM 4.3 MMOL/L (3.5-5.1); SODIUM 137 MMOL/L (135-145); TOTAL CARBON DIOXIDE 27.7 MMOL/L (24-32); TOTAL PROTEIN 5.1 G/DL (6.4-8.2); eCRCL 19 ML/MIN; eGFR 20 ML/MIN
[2023-05-26] MEDS ORDERED: normal saline 1000ml 250 ML IV PRN (08:45)
[2023-05-26] MEDS: heparin 1,000 units/ml 10ml inj HE ONE ×2 (10:33→10:34)
[2023-05-26] MEDS: heparin 1,000unit/ml 10ml vial 10 ML IV ONE (10:33)
[2023-05-26] MEDS: EPOETIN ALFA-EPBX 20,000 UNIT/ML 1 ML MDV IV ONE (10:38)
[2023-05-26] MEDS ORDERED: allopurinol 100mg tablet PO SCH (11:54)
[2023-05-26] MEDS: meropenem inj 500 MG in normal saline 100ml IV soln 100 ML IV SCH (13:55)
[2023-05-26] MEDS: normal saline 500ml IV soln 500 ML IV ONE (23:54)
[2023-05-27] VITALS (20 sets, daily range): BP systolic 101–120; BP diastolic 40–48; PULSE 6–66; RESP 16–26; TEMP 97.2–99.2; O2SAT 95–100
[2023-05-27] MEDS: normal saline 1000ml 1,000 ML IV SCH (01:30)
[2023-05-27 06:38] LABS: BASOPHILS # (AUTO) 0.1 X10'3 (0-0.2); BASOPHILS % (AUTO) 0.7 % (0-1); EOSINOPHILS # (AUTO) 0.2 X10'3 (0-0.9); EOSINOPHILS % (AUTO) 1.4 % (0-6); HEMATOCRIT 23.4 % (35.0-45.0); HEMOGLOBIN 7.7 g/dl (12.0-16.0); LYMPHOCYTES # (AUTO) 0.5 X10'3 (1.1-4.8); LYMPHOCYTES % (AUTO) 2.7 % (21-51); MEAN CORPUSCULAR HEMOGLOBIN 30.5 PG (27.0-31.0); MEAN CORPUSCULAR HGB CONC 32.8 g/dL (33.0-36.5); MEAN CORPUSCULAR VOLUME 92.9 FL (78-98); MONOCYTES # (AUTO) 1.1 X10'3 (0-0.9); MONOCYTES % (AUTO) 6.3 % (2-12); NEUTROPHILS # (AUTO) 15.5 X10'3 (1.8-7.7); NEUTROPHILS % (AUTO) 88.9 % (42-75); PLATELET COUNT 186 X10'3 (140-440); RED BLOOD COUNT 2.52 X10'6 (4.20-5.60); WHITE BLOOD COUNT 17.5 X10'3 (4.5-11.0)
[2023-05-27 07:01] LABS: ALANINE AMINOTRANSFERASE 72 U/L (12-78); ALBUMIN 1.6 G/DL (3.4-5.0); ALBUMIN/GLOBULIN RATIO 0.4 (1.1-1.5); ALKALINE PHOSPHATASE 799 IU/L (46-116); ANION GAP 5 (8-16); ASPARTATE AMINO TRANSFERASE 43 U/L (10-37); BILIRUBIN,TOTAL 0.9 MG/DL (0.1-1.0); BLOOD UREA NITROGEN 25 MG/DL (7-18); BUN/CREATININE RATIO 13.3 (10.0-20.0); CALCIUM 7.4 MG/DL (8.5-10.1); CHLORIDE 99 MMOL/L (99-107); CREATININE 1.88 MG/DL (0.40-0.90); GLUCOSE 91 MG/DL (70-104); MAGNESIUM 1.9 MG/DL (1.5-2.4); PHOSPHORUS 3.4 MG/DL (2.3-4.5); POTASSIUM 3.9 MMOL/L (3.5-5.1); SODIUM 136 MMOL/L (135-145); TOTAL CARBON DIOXIDE 32.3 MMOL/L (24-32); TOTAL PROTEIN 5.4 G/DL (6.4-8.2); eCRCL 24 ML/MIN; eGFR 26 ML/MIN
[2023-05-27 07:13] LABS: ANISOCYTOSIS 1+; PLATELET ESTIMATE NORMAL; TOTAL CELLS COUNTED 100
[2023-05-27] MEDS: allopurinol 100mg tablet PO SCH (08:47)
[2023-05-28] VITALS (27 sets, daily range): BP systolic 118–168; BP diastolic 42–72; PULSE 57–74; RESP 16–28; TEMP 97.4–99.3; O2SAT 93–100
[2023-05-28 04:11] LABS: BASOPHILS # (AUTO) 0.1 X10'3 (0-0.2); BASOPHILS % (AUTO) 0.5 % (0-1); EOSINOPHILS # (AUTO) 0.2 X10'3 (0-0.9); EOSINOPHILS % (AUTO) 1.7 % (0-6); HEMATOCRIT 24.1 % (35.0-45.0); HEMOGLOBIN 7.7 g/dl (12.0-16.0); LYMPHOCYTES # (AUTO) 0.4 X10'3 (1.1-4.8); MEAN CORPUSCULAR HEMOGLOBIN 29.7 PG (27.0-31.0); MEAN CORPUSCULAR VOLUME 92.8 FL (78-98); MEAN PLATELET VOLUME 9.9 FL (7.4-10.4); MONOCYTES # (AUTO) 1.1 X10'3 (0-0.9); MONOCYTES % (AUTO) 7.8 % (2-12); NEUTROPHILS # (AUTO) 12.1 X10'3 (1.8-7.7); PLATELET COUNT 198 X10'3 (140-440); RED BLOOD COUNT 2.59 X10'6 (4.20-5.60); RED CELL DISTRIBUTION WIDTH 18.5 % (11.5-14.5); WHITE BLOOD COUNT 13.9 X10'3 (4.5-11.0)
[2023-05-28 04:24] LABS: ALANINE AMINOTRANSFERASE 58 U/L (12-78); ALBUMIN 1.7 G/DL (3.4-5.0); ALBUMIN/GLOBULIN RATIO 0.5 (1.1-1.5); ALKALINE PHOSPHATASE 663 IU/L (46-116); ANION GAP 3 (8-16); ASPARTATE AMINO TRANSFERASE 25 U/L (10-37); BILIRUBIN,TOTAL 0.7 MG/DL (0.1-1.0); BLOOD UREA NITROGEN 34 MG/DL (7-18); BUN/CREATININE RATIO 15.7 (10.0-20.0); CHLORIDE 102 MMOL/L (99-107); CREATININE 2.17 MG/DL (0.40-0.90); GLUCOSE 115 MG/DL (70-104); MAGNESIUM 1.8 MG/DL (1.5-2.4); PHOSPHORUS 3.7 MG/DL (2.3-4.5); POTASSIUM 4.1 MMOL/L (3.5-5.1); SODIUM 138 MMOL/L (135-145); TOTAL CARBON DIOXIDE 33.3 MMOL/L (24-32); TOTAL PROTEIN 5.3 G/DL (6.4-8.2); eCRCL 21 ML/MIN; eGFR 22 ML/MIN
[2023-05-28 05:13] LABS: ANISOCYTOSIS 2+; PLATELET ESTIMATE NORMAL; TOTAL CELLS COUNTED 100
[2023-05-28 05:14] LABS: LARGE PLATELETS FEW; POLYCHROMASIA FEW
[2023-05-28] MEDS ORDERED: albumin (human) 25% 100ml IV 100 ML IV PRN (05:45)
[2023-05-28] MEDS ORDERED: amiodarone 200mg tablet PO SCH (08:00)
[2023-05-28] MEDS: EPOETIN ALFA-EPBX 20,000 UNIT/ML 1 ML MDV IV ONE (11:32)
[2023-05-28 13:14] LABS: ANTINUCLEAR ANTIBODIES Negative (Negative)
[2023-05-29] VITALS (11 sets, daily range): BP systolic 141–152; BP diastolic 51–52; PULSE 54–68; RESP 15–20; TEMP 97.2–97.3; O2SAT 89–98
[2023-05-29 07:49] LABS: BASOPHILS # (AUTO) 0.1 X10'3 (0-0.2); BASOPHILS % (AUTO) 0.6 % (0-1); EOSINOPHILS # (AUTO) 0.2 X10'3 (0-0.9); HEMOGLOBIN 7.6 g/dl (12.0-16.0); LYMPHOCYTES # (AUTO) 0.6 X10'3 (1.1-4.8); MONOCYTES # (AUTO) 1.1 X10'3 (0-0.9); WHITE BLOOD COUNT 11.4 X10'3 (4.5-11.0)
[2023-05-29 07:52] LABS: HEMATOCRIT 24.1 % (35.0-45.0); LYMPHOCYTES % (AUTO) 5.1 % (21-51); MEAN CORPUSCULAR HEMOGLOBIN 30.3 PG (27.0-31.0); MEAN CORPUSCULAR HGB CONC 31.7 g/dL (33.0-36.5); MEAN CORPUSCULAR VOLUME 95.5 FL (78-98); MEAN PLATELET VOLUME 9.8 FL (7.4-10.4); MONOCYTES % (AUTO) 9.8 % (2-12); NEUTROPHILS # (AUTO) 9.4 X10'3 (1.8-7.7); NEUTROPHILS % (AUTO) 82.5 % (42-75); PLATELET COUNT 244 X10'3 (140-440); RED BLOOD COUNT 2.52 X10'6 (4.20-5.60); RED CELL DISTRIBUTION WIDTH 19.2 % (11.5-14.5)
[2023-05-29 08:18] LABS: ALANINE AMINOTRANSFERASE 41 U/L (12-78); ALBUMIN 1.6 G/DL (3.4-5.0); ALBUMIN/GLOBULIN RATIO 0.4 (1.1-1.5); ALKALINE PHOSPHATASE 596 IU/L (46-116); ANION GAP 5 (8-16); ASPARTATE AMINO TRANSFERASE 24 U/L (10-37); BILIRUBIN,TOTAL 0.7 MG/DL (0.1-1.0); BLOOD UREA NITROGEN 27 MG/DL (7-18); BUN/CREATININE RATIO 16.8 (10.0-20.0); CALCIUM 8.1 MG/DL (8.5-10.1); CHLORIDE 102 MMOL/L (99-107); CREATININE 1.61 MG/DL (0.40-0.90); GLUCOSE 99 MG/DL (70-104); MAGNESIUM 1.8 MG/DL (1.5-2.4); POTASSIUM 4.1 MMOL/L (3.5-5.1); SODIUM 137 MMOL/L (135-145); TOTAL CARBON DIOXIDE 29.7 MMOL/L (24-32); TOTAL PROTEIN 5.4 G/DL (6.4-8.2); eCRCL 28 ML/MIN; eGFR 32 ML/MIN
[2023-05-29 08:23] LABS: ANTISTREPTOLYSIN O AB 42.5 IU/mL (0.0-200.0); COMPLEMENT C3, SERUM 114 mg/dL (82-167); COMPLEMENT C4, SERUM 41 mg/dL (12-38); GAMMA GLUTAMLY TRANSPEPTIDASE 614 IU/L (0-60); IMMUNOGLOBULIN A, QN, SERUM 183 mg/dL (64-422); IMMUNOGLOBULIN G, QN, SERUM 655 mg/dL (586-1602); IMMUNOGLOBULIN M, QN, SERUM 67 mg/dL (26-217)
[2023-05-29 09:05] LABS: NUCLEATED RED BLOOD CELLS 2 /100WBC (0-0); PLATELET ESTIMATE NORMAL; TOTAL CELLS COUNTED 100
[2023-05-29 09:06] LABS: TARGET CELLS FEW
[2023-05-29 09:07] LABS: ANISOCYTOSIS 2+; POLYCHROMASIA FEW
[2023-05-29] MEDS: amiodarone 100mg tablet PO SCH (09:15)
[2023-06-03 14:19] LABS: ATYPICAL PANCA <1:20 titer (Neg:<1:20); CYTOPLASMIC (C-ANCA) <1:20 titer (Neg:<1:20); PERINUCLEAR (P-ANCA) <1:20 titer (Neg:<1:20)
== END 2023-05-29 17:19 | DRG 853 ==
LOC: ER 22:26 → ED HOLD 05-10 04:03 → EDBEDREQ 05-10 06:23 → PCU 3S 05-10 07:23 → PACU 05-17 13:37 → ICU 2S 05-17 18:03 → PCU 3S 05-18 18:30 → CICU 2S 05-20 19:24 → PCU 3S 05-24 16:18 → UNDODISIN 05-29 10:02
PROVIDERS: ADMIT Internal Medicine Critical Care Medicine; ATTEND Family Medicine
PROC: 30233N1 Transfusion of Nonautologous Red Blood Cells into Peripheral Vein, Percutaneous Approach (ICD-10-PCS; 2023-05-10)
PROC: 0Y9H0ZZ Drainage of Right Lower Leg, Open Approach (ICD-10-PCS; 2023-05-14)
PROC: 0JBN0ZZ Excision of Right Lower Leg Subcutaneous Tissue and Fascia, Open Approach (ICD-10-PCS; principal; 2023-05-14 18:32)
PROC: 0Y3H0ZZ Control Bleeding in Right Lower Leg, Open Approach (ICD-10-PCS; 2023-05-17)
PROC: 02HV33Z Insertion of Infusion Device into Superior Vena Cava, Percutaneous Approach (ICD-10-PCS; 2023-05-17)
PROC: 5A1D70Z Performance of Urinary Filtration, Intermittent, Less than 6 Hours Per Day (ICD-10-PCS; 2023-05-20)
PROC: 5A09357 Assistance with Respiratory Ventilation, Less than 24 Consecutive Hours, Continuous Positive Airway Pressure (ICD-10-PCS; 2023-05-20)
PROC: 5A09357 Assistance with Respiratory Ventilation, Less than 24 Consecutive Hours, Continuous Positive Airway Pressure (ICD-10-PCS; 2023-05-21)
PROC: 5A09357 Assistance with Respiratory Ventilation, Less than 24 Consecutive Hours, Continuous Positive Airway Pressure (ICD-10-PCS; 2023-05-22)
PROC: 5A09357 Assistance with Respiratory Ventilation, Less than 24 Consecutive Hours, Continuous Positive Airway Pressure (ICD-10-PCS; 2023-05-23)
PROC: 5A09357 Assistance with Respiratory Ventilation, Less than 24 Consecutive Hours, Continuous Positive Airway Pressure (ICD-10-PCS; 2023-05-24)
PROC: 5A09357 Assistance with Respiratory Ventilation, Less than 24 Consecutive Hours, Continuous Positive Airway Pressure (ICD-10-PCS; 2023-05-25)
PROC: 5A1D70Z Performance of Urinary Filtration, Intermittent, Less than 6 Hours Per Day (ICD-10-PCS; 2023-05-26)
PROC: 5A09357 Assistance with Respiratory Ventilation, Less than 24 Consecutive Hours, Continuous Positive Airway Pressure (ICD-10-PCS; 2023-05-26)
PROC: 5A09357 Assistance with Respiratory Ventilation, Less than 24 Consecutive Hours, Continuous Positive Airway Pressure (ICD-10-PCS; 2023-05-27)
PROC: 5A1D70Z Performance of Urinary Filtration, Intermittent, Less than 6 Hours Per Day (ICD-10-PCS; 2023-05-28)
PROC: 5A09357 Assistance with Respiratory Ventilation, Less than 24 Consecutive Hours, Continuous Positive Airway Pressure (ICD-10-PCS; 2023-05-28)
DX: A41.9 Sepsis, unspecified organism (principal); J18.9 Pneumonia, unspecified organism; K72.00 Acute and subacute hepatic failure without coma; N17.0 Acute kidney failure with tubular necrosis; N18.6 End stage renal disease; R65.21 Severe sepsis with septic shock; N39.0 Urinary tract infection, site not specified; I50.22 Chronic systolic (congestive) heart failure; R18.8 Other ascites; I42.9 Cardiomyopathy, unspecified; I13.2 Hypertensive heart and chronic kidney disease with heart failure and with stage 5 chronic kidney disease, or end stage renal disease; L03.115 Cellulitis of right lower limb; N18.4 Chronic kidney disease, stage 4 (severe); S80.11XA Contusion of right lower leg, initial encounter; D50.0 Iron deficiency anemia secondary to blood loss (chronic); I25.10 Atherosclerotic heart disease of native coronary artery without angina pectoris; I48.0 Paroxysmal atrial fibrillation; W01.0XXA Fall on same level from slipping, tripping and stumbling without subsequent striking against object, initial encounter; E11.22 Type 2 diabetes mellitus with diabetic chronic kidney disease; E11.40 Type 2 diabetes mellitus with diabetic neuropathy, unspecified; E03.9 Hypothyroidism, unspecified; E66.01 Morbid (severe) obesity due to excess calories; E21.1 Secondary hyperparathyroidism, not elsewhere classified; K74.60 Unspecified cirrhosis of liver; T45.515A Adverse effect of anticoagulants, initial encounter; E78.5 Hyperlipidemia, unspecified; J44.9 Chronic obstructive pulmonary disease, unspecified; G47.30 Sleep apnea, unspecified; M10.9 Gout, unspecified; L40.9 Psoriasis, unspecified; Z88.1 Allergy status to other antibiotic agents; Z88.8 Allergy status to other drugs, medicaments and biological substances; Z88.5 Allergy status to narcotic agent; Z88.0 Allergy status to penicillin; Z79.01 Long term (current) use of anticoagulants; Z79.82 Long term (current) use of aspirin; Z79.899 Other long term (current) drug therapy; Z90.710 Acquired absence of both cervix and uterus; Y93.89 Activity, other specified; Y92.89 Other specified places as the place of occurrence of the external cause; Y99.8 Other external cause status; Z87.440 Personal history of urinary (tract) infections; Z87.442 Personal history of urinary calculi; Z68.39 Body mass index [BMI] 39.0-39.9, adult
CPT/HCPCS: 36415; 36430; 36600; 71045; 73700; 76700; 80047; 80048; 80053; 80069; 80076; 81001; 82140; 82728; 82784; 82800; 82803; 82948; 82977; 83036; 83540; 83550; 83605; 83615; 83735; 84100; 84145; 84443; 85007; 85008; 85018; 85025; 85027; 85610; 85730; 86038; 86060; 86140; 86160; 86256; 86334; 86335; 86430; 86885; 86900; 86901; 86920; 87040; 87081; 87207; 87340; 93005; 93306; 94640; 94660; 94668; 94760; 97110; 97161; 97162; 97530; 99285; A4314; A4615; A4618; A4649; A6196; A6212; A6213; A6222; A6223; A6234; A6243; A6250; A6253; A6258; A6446; A6449; A7000; C1751; C1752; C1758; C9113; E1594; G0257; G0378; J0131; J0461; J1100; J1170; J1644; J1756; J1815; J1940; J2185; J2250; J2405; J2704; J2710; J2930; J3010; J3475; J3490; J7030; J7040; J7060; J7070; J7120; J7168; P9016; P9045; Q0177; Q4081